=== PATIENT | male | born 1965 | race Hispanic/Latino ===

== ENCOUNTER 2023-12-12 06:47 | Emergency (ER) | payer SELFPAY ==
--- OUTSIDE RECORDS SUMMARY | 2023-12-12 06:49 | XMS REPORT | Continuity of Care Document ---
Author Name Unknown Address [address] [facility] [address] [place] [address] [facility] thconnect Address [address] [facility] 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 Name Role Phone Fredis Hilliard Attending Clinician Unavailable Hernán Attending Clinician Unavail able Fredis Hilliard Admitting Clinician Unavailable Hernán Admitting Clinician Unavail able Payers Payer Name Policy Type Policy Number Effective Date Expirati on Date Source [place] [id number] 2017 00:00:00 Allergies, Adverse Reactions, Alerts Allergy Name Allergy Type Status Severity Reaction(s) Onset Date Inactive Date Treating Clinician Comments Source [place] 2013-06 00:00: 00 [facility] [place]ASH 2013-06 00:00: 00 [facility] Encounters Start Date/Time End Date/Time Encounter Type Admission Type Attending Clinicians Care Facility Care Department Encounter ID Source 2023-04-30 10:00:00 Inpatient Fredis Asencio [facility] RAD [id number] [facility] 2022-07-07 09:32:00 2022-07-07 09:32:00 Outpatient Fredis Asencio [facility] RAD [id number] [facility] 2021-10-29 12:38:00 2021-10-29 12:38:00 Outpatient Lyndsay Jazmin_ AO AO [id number] [facility] Results Test Description Test Time Test Comments Results Resul t Comments Source - US RETROPERITONEAL COMPLETE 2022-07-07 11:20:00 [facility] 1965 Sex: M [place]: [facility] St: REG Name: HI PEREZ [facility] : 1965 Age/S: 56/M [address] [facility] Unit #: [id number] Loc: .[place], [place] [address] Phys: Fredis Hilliard MD Acct: [id number] Dis Date: Status: REG CLI PHONE #: [phone] Exam Date: 07/07/2022 1014 FAX #: [phone] Reason: ESSENTIAL PRIMARY HTN EXAMS: CPT CODE: [id number] US RETROPERITONEAL COMPLETE 59708 Retroperitoneal ultrasound with duplex imaging. Location: H19 History: Essential primary HTN. Comparison: 06/30/2016 Technique and Findings: Grayscale, spectral, color Doppler ultrasound of the kidneys and bladder region were performed. The right kidney measures 9.4 x 5.2 x 4.9 cm. The left kidney measures 9.1 x 5.4 x 4.3 cm. There is no hydronephrosis. Corticomedullary differentiation is normal. There are no focal lesions or calculi seen. Velocities are in cm/sec. Right proximal renal artery: 43.0. Right distal renal artery: Not clearly visualized Right mid renal artery: 148.3 Left proximal renal artery: 63.0 Left distal renal artery: 41.0. Aorta: 114.8 Right renal artery to aorta ratio: 1.3 Left renal artery to aorta ratio: 0.7 The visualized renal veins are patent. The bladder appears smooth-walled. Impression: No sonographic evidence for significant hematoma stenosis of the renal arteries. at 1120 Reported and signed by: CECELIA CHEW MD PAGE 1 Signed Report (CONTINUED) [place]: [facility] St: REG Name: HI PEREZ [facility] : 1965 Age/S: 56/M [address] [facility] Unit #: [id number] Loc: [place], [place] [address] Phys: Fredis Hilliard MD Acct: [id number] Dis Date: Status: REG CLI PHONE #: [phone] Exam Date: 07/07/2022 1014 FAX #: [phone] Reason: ESSENTIAL PRIMARY HTN EXAMS: CPT CODE: [id number] US RETROPERITONEAL COMPLETE 33512 (Continued) Facility ACR Accreditation for Ultrasound - July 2011 CC: Fredis Hilliard MD Technologist: GAGANDEEP PASCUAL, RVS Transcribed Date/Time/By: 07/07/2022 (1120) : By: [email or web address] Orig Print D/T: S: 07/07/2022 (1122) PAGE 2 Signed Report - DUP AO/IVC/IV/BPG LTD 2022-07-07 11:20:00 [facility] : 1965 Sex: M [place]: [facility] St: REG Name: HI PEREZ [facility] : 1965 Age/S: 56/M [address] [facility] Unit #: [id number] Loc: [place], [place] [address] Phys: Fredis Hilliard MD Acct: [id number] Dis Date: Status: REG CLI PHONE #: [phone] Exam Date: 07/07/[address] [facility] FAX #: [phone] Reason: ESSENTIAL PRIMARY HTN EXAMS: CPT CODE: [id number] DUP AO/IVC/IV/BPG LTD 31473 Retroperitoneal ultrasound with duplex imaging. Location: H19 History: Essential primary HTN. Comparison: 06/30/2016 Technique and Findings: Grayscale, spectral, color Doppler ultrasound of the kidneys and bladder region were performed. The right kidney measures 9.4 x 5.2 x 4.9 cm. The left kidney measures 9.1 x 5.4 x 4.3 cm. There is no hydronephrosis. Corticomedullary differentiation is normal. There are no focal lesions or calculi seen. Velocities are in cm/sec. Right proximal renal artery: 43.0. Right distal renal artery: Not clearly visualized Right mid renal artery: 148.3 Left proximal renal artery: 63.0 Left distal renal artery: 41.0. Aorta: 114.8 Right renal artery to aorta ratio: 1.3 Left renal artery to aorta ratio: 0.7 The visualized renal veins are patent. The bladder appears smooth-walled. Impression: No sonographic evidence for significant hematoma stenosis of the renal arteries. at 1120 Reported and signed by: CECELIA CHEW MD PAGE 1 Signed Report (CONTINUED) [place]: [facility] St: REG Name: HI PEREZ [facility] : 1965 Age/S: 56/M [address] [facility] Unit #: [id number] Loc: [place] [address] Phys: Fredis Hilliard MD Acct: [id number] Dis Date: Status: REG CLI PHONE #: [phone] Exam Date: 07/07/2022 1014 FAX #: [phone] Reason: ESSENTIAL PRIMARY HTN EXAMS: CPT CODE: [id number] DUP AO/IVC/IV/BPG LTD 82607 (Continued) Facility ACR Accreditation for Ultrasound - July 2011 CC: Fredis Hilliard MD Technologist: CHARI LEE Transcribed Date/Time/By: 07/07/2022 (1120) : By: [email or web address] Orig Print D/T: S: 07/07/2022 (1126) PAGE 2 Signed Report - VEIN REFLUX STUDY 2019-05-09 11:48:00 [place]: [facility] St: PRE Name: HI PEREZ [facility] : 1965 Age/S: 53/M [address] [facility] Unit #: [id number] Loc: [place], [place] [address] Phys: David James MD Acct: [id number] Dis Date: Status: PRE CLI PHONE #: [phone] Exam Date: 05/04/2019 1110 FAX #: [phone] Reason: VENOUS INSUFFICIENSCY EXAMS: CPT CODE: [id number] VEIN REFLUX STUDY 35693 BILATERAL LOWER EXTREMITIES VENOUS DUPLEX INCLUDING ADDITIONAL EVALUATION FOR VENOUS INSUFFICIENCY INDICATION: Venous insufficiency. COMPARISON: No prior imaging. TECHNIQUE: Real-time grayscale, color and pulsed Doppler evaluation. FINDINGS: The bilateral common femoral, superficial femoral, and popliteal veins demonstrate normal compressibility, normal phasic venous flow, and normal response to augmentation. There is no visible thrombus , nor sign of significant venous insufficiency on the spectral Doppler images. The bilateral saphenous veins are patent without thrombosis. On the RIGHT, in the upright position the greater and lesser saphenous veins were evaluated from the femoral-saphenous junction down to the ankle and the diameter and result of the spectral Doppler evaluation are: Greater saphenous vein - Upper thigh: 4.6 mm, no significant reflux - Mid thigh: 2.6 mm, no significant reflux - Distal thigh: 3.1 mm, no significant reflux - Upper calf: 2.5 mm, no significant reflux - Distal calf: 3.9 mm, no significant reflux Lesser saphenous vein - Upper calf: 2.3 mm, no significant reflux - Mid calf: 2.3 mm, no significant reflux - Distal calf: 2.3 mm, no significant reflux On the LEFT, in the upright position the greater and lesser saphenous veins were evaluated from the femoral-saphenous junction down to the ankle and the diameter and result of the spectral Doppler evaluation are: Greater saphenous vein - Upper thigh: 6.7 mm, no significant reflux - Mid thigh: 3.9 mm, no significant reflux PAGE 1 Signed Report (CONTINUED) [place]: [facility] St: PRE Name: HI PEREZ [facility] : 1965 Age/S: 53/M [address] [facility] [facility] Unit #: [id number] Loc: [place], [place] [address] Phys: David James MD Acct: [id number] Dis Date: Status: PRE CLI PHONE #: [phone] Exam Date: 05/04/2019 1110 FAX #: [phone] Reason: VENOUS INSUFFICIENSCY EXAMS: CPT CODE: [id number] VEIN REFLUX STUDY 49648 (Continued) - Distal thigh: 3.1 mm, no significant reflux - Upper calf: 2.2 mm, no significant reflux - Distal calf: 2.8 mm, no significant reflux Lesser saphenous vein - Upper calf: 5.2 mm, no significant reflux - Mid calf: 2.4 mm, no significant reflux - Distal calf: 2.4 mm, no significant reflux Incidentally noted, behind the left knee there is a popliteal cyst (Staton's cyst) measuring 3.6 cm in length by 1.0 cm in maximal diameter. No surrounding inflammatory changes. This is avascular on the color Doppler images. IMPRESSION: 1. No acute or chronic venous thrombosis involving the femoral, popliteal and saphenous veins. 2. No sign of significant venous insufficiency. 3. Small Staton's / popliteal cyst behind the left knee. at 1148 Reported and signed by: Forrest Godfrey MD Facility ACR Accreditation for Ultrasound - July 2011 CC: Clint Michelle; David James MD Technologist: Susan Damon RT(R)RDMS,RVT; ADALBERTO MURPHY RDMS Transcribed Date/Time/By: 05/09/2019 (1148) : By: [email or web address] Orig Print D/T: S: 05/09/2019 (8397) PAGE 2 Signed Report - MRI L-SPINE W/O CONT 2018-12-28 10:18:00 FAX: Gurjit Quinn [phone] [place]: [facility] St: REG FAX: Jordan Ocampo MD [phone] Name: HI PEREZ [facility] : 1965 Age/S: 53/M [address] [place] [facility] Unit #: [id number] Loc: [place], [place] [address] Phys: Jordan Novoa MD Acct: [id number] Dis Date: Status: REG [facility] PHONE #: [phone] Exam Date: 12/28/2018 0934 FAX #: [phone] Reason: LUMBAR STENOSIS EXAMS: CPT CODE: [id number] MRI L-SPINE W/O CONT 97526 EXAM: MRI LUMBAR SPINE WITHOUT CONTRAST INDICATION: LUMBAR STENOSIS COMPARISON: CT dated June 30, 2016 TECHNIQUE: Multiplanar, multisequence noncontrast MR imaging of the lumbar spine. IV contrast: None. FINDINGS: There are 5 nonrib-bearing lumbar vertebra. There are postsurgical changes of prior laminectomy and posterior fusion of L4-S1 with pedicle screws and rods. There are disc spacers noted in place. There is anterior fusion hardware noted as well. The vertebral bodies are normal in height and signal intensity. There is minimal retrolisthesis of L3 over L4. The facet joints and spinous processes are in normal alignment. There is diffuse facet joint arthropathy. There is loss of the intervertebral disc height throughout the lumbar spine. The conus medullaris terminates at T12-L1 and is normal in signal intensity and caliber. The cauda equina is normal. The posterior paraspinal soft tissues are normal. Imaged portion of the abdomen is unremarkable. INDIVIDUAL LEVELS: L1-L2: No spinal canal or neuroforaminal stenosis. L2-L3: No spinal canal or neuroforaminal stenosis. L3-L4: Minimal retrolisthesis with pseudobulge measuring 6 mm. Mild spinal canal stenosis. Facet joint hypertrophy with moderate right and mild left neuroforaminal stenosis. L4-L5: Postsurgical changes. No spinal canal or neuroforaminal stenosis. L5-S1: Postsurgical changes. No spinal canal or neuroforaminal stenosis. IMPRESSION: PAGE 1 Signed Report (CONTINUED) FAX: Gurjit Quinn [phone] [place]: [facility] St: REG FAX: Jordan Ocampo MD [phone] Name: HI PEREZ [facility] : 1965 Age/S: 53/M [address] [facility] [facility] Unit #: [id number] Loc: [place], [place] [address] Phys: Jordan Novoa MD Acct: [id number] Dis Date: Status: REG [facility] PHONE #: [phone] Exam Date: 12/28/2018 0934 FAX #: [phone] Reason: LUMBAR STENOSIS EXAMS: CPT CODE: [id number] MRI L-SPINE W/O CONT 44063 (Continued) Discogenic disease and facet joint arthropathy throughout the lumbar spine. Minimal retrolisthesis of L3 over L4 with mild spinal canal stenosis. Moderate right neuroforaminal stenosis at L3-L4. Postsurgical changes at L4-S1. LOCATION: A 1 at 1018 Reported and signed by: SHEREE HALE M.D. CC: Gurjit Cline MD; Jordan Novoa MD Technologist: Fredis Talley RT(R)(CT)(MRI)ARRT Transcribed Date/Time/By: 12/28/2018 (1018) :[email or web address] Orig Print D/T: S: 12/28/2018 (0067) PAGE 2 Signed Report CBC W/O [id number] 10:50:00* Test Item Value Reference Range Interpretation Comme nts WHITE BLOOD CELL (test code = WBC) 7.3 K/mm3 4.8-10.8 N RED BLOOD CELL (test code = RBC) 4.46 M/mm3 4.2-5.4 N HEMOGLOBIN (test code = HGB) 14.0 gm/DL 13.5-17.5 N HEMATOCRIT (test code = HCT) 41.0 % 37.1-51.5 N MEAN CELL VOLUME (test code = MCV) 91.9 fL 81-99 N MEAN CELL HGB (test code = MCH) 31.4 pg 27-31 H MEAN CELL HGB CONCETRATION ( test code = MCHC) 34.1 gm/dL 33-37 N RED CELL DISTRIBUTION WIDTH (test code = RDW) 12.7 % 11.5-14.5 N PLATELET COUNT (test code = PLT) 234 X10(3) 130-400 N MEAN PLATELET VOLUME (test c ode = MPV) 9.6 fL 9.4-12.4 N
[2023-12-12] MEDS ORDERED: dexAMETHasone 10 MG/ML VIAL ONE (07:16)
[2023-12-12] MEDS ORDERED: ONDANSETRON 4 MG/2 ML VIAL ONE (07:16)
[2023-12-12] MEDS ORDERED: KETOROLAC 30 MG/ML INJ ONE (07:16)
[2023-12-12] MEDS ORDERED: MORPHINE 4 MG/ML SYR ONE (07:17)
--- NOTE | 2023-12-12 08:29 | RAD REPORT ---
EXAM DESCRIPTION: CT - Spine Lumbar Wo Con - 12/12/2023 7:53 am CLINICAL HISTORY: worsening pain COMPARISON: Spine Lumbar Wo Con dated 11/25/2023 TECHNIQUE: Axial noncontrast CT imaging of the lumbar spine was performed with coronal and sagittal re-formatted images. All CT scans are performed using dose optimization technique as appropriate and may include automated exposure control or mA/KV adjustment according to patient size. FINDINGS: Sequelae of bilateral laminectomies opposite L5 transpedicular fusion screws at L4-S1 with a single left-sided screw at L5, and interbody spacers. No evidence of hardware complications. No acute lumbar spine fracture seen. No aggressive marrow pattern or malalignment apart from mild ret rolisthesis of L3 over L4 measuring 3 mm. Paraspinal tissues are normal in thickness. No paraspinal abscess or hematoma seen. Intervertebral disc disease assessment is inherently limited by CT. Additionally, metallic streak art ifact related to the fusion hardware also limits evaluation. Within these limitations, no high-grade canal stenosis suspected. Broad-based posterior disc bulge is noted at L3-4 mild effacement of the thecal sac. Moderate bilater al neural foraminal narrowing noted at that level, more pronounced on the right. Broad-based posterior central disc bulge with disc vacuum phenomenon at L2-3. Mild bilateral neural f oraminal narrowing at that level. IMPRESSION: No acute fracture or subluxation. Sequelae of prior decompression and L4-S1 posterior approach fusion. Up to moderate degenerative laboy ges most notably at L3-4 and to lesser extent at L2-3. Please Consider MRI follow-up for assessment o f disc disease if clinically desired.
--- NOTE | 2023-12-12 09:44 | EDPHYS ---
Physician Documentation [facility] Name: Jim Maldonado Jr Age: 57 yrs Sex: Male : 1965 Arrival Date: 12/12/2023 Time: 06:47 Bed 18 Private MD: ED Physician Aram Zhao HPI: 12/11 07:20 This 57 yrs old Male presents to ER via Wheelchair with complaints of Back rt Pain, Leg Pain. 07:20 Patient with previous back surgery presents to the ED with a low back pain. Patient was rt seen in the ED for the same, had no significant changes on CT scan, x-ray of the leg, labs. Patient ran out of his oxycodone few days ago, tried to get in with his doctor to get refills on his prescriptions. Did take diclofenac, cyclobenzaprine today, to no relief. Patient states that the pain has worsened, states that he is not able to walk due to the pain. Denies any loss of strength. Denies other acute complaints at this time, symptoms are moderate in severity, no other aggravating elevating factors.. Historical: - Allergies: 07:12 PENICILLINS; kc6 - PMHx: 07:12 Hypertensive disorder; Rashi Willebrand Disease; Gastritis; kc6 - PSHx: 07:12 laminectomy; spinal fusion; kc6 - Immunization history:: Adult Immunizations up to date. - Infectious Disease History:: Denies. - Social history:: Smoking status: Patient denies any tobacco usage or history of. - Family history:: not pertinent. ROS: 07:20 Constitutional: Negative for fever, chills, and weight loss, Cardiovascular: Negative rt for chest pain, palpitations, and edema, Respiratory: Negative for shortness of breath, cough, wheezing, and pleuritic chest pain, Abdomen/GI: Negative for abdominal pain, nausea, vomiting, diarrhea, and constipation, Skin: Negative for injury, rash, and discoloration, Neuro: Negative for headache, weakness, numbness, tingling, and seizure, 07:20 Back: Positive for pain at rest, pain with movement, Exam: 07:20 Constitutional: This is a well developed, well nourished patient who is awake, alert, rt and in no acute distress. Head/Face: Normocephalic, atraumatic. Chest/axilla: Normal chest wall appearance and motion. Nontender with no deformity. No lesions are appreciated. Cardiovascular: Regular rate and rhythm with a normal S1 and S2. No gallops, murmurs, or rubs. Normal PMI, no JVD. No pulse deficits. Respiratory: Lungs have equal breath sounds bilaterally, clear to auscultation and percussion. No rales, rhonchi or wheezes noted. No increased work of breathing, no retractions or nasal flaring. Abdomen/GI: Soft, non-tender, with normal bowel sounds. No distension or tympany. No guarding or rebound. No evidence of tenderness throughout. 07:20 Back: Tenderness to midline lumbar region, no step-offs, 07:20 Neuro: Mildly decreased sensation at the distal left medial calf, strength is intact, Vital Signs: 07:04 BP 164 / 88; Pulse 92; Resp 18; Temp 98(O); Pulse Ox 100% on R/A; Weight 81.65 kg; oe Height 5 ft. 7 in. ; Pain 10/10; 08:23 BP 145 / 77; Pulse 72; Resp 16 S; Pulse Ox 97% on R/A; kc6 09:25 Pulse 70; Resp 15 S; Pulse Ox 97% on R/A; kc6 07:04 Body Mass Index 28.19 (81.65 kg, 170.18 cm) oe 07:04 Pain Scale: Adult oe MDM: 07:03 Patient medically screened. rt 11:41 Differential diagnosis: Chronic pain, disc disease, fracture. Data reviewed: vital rt signs, nurses notes, radiologic studies. I considered the following discharge prescriptions or medication management in the emergency department Medications were administered in the Emergency Department. See MAR. Independent interpretation of the following test(s) in the Emergency Department CT Scan: My interpretation is No fracture seen on interpretation of CT scan images. Test considered but Not performed: MRI: No symptoms to suggest cord compression, cauda equina syndrome, spinal epidural abscess, MRI is not emergently indicated. Care significantly affected by the following chronic conditions: Hypertension. Counseling: I had a detailed discussion with the patient and/or guardian regarding the historical points, exam findings, and any diagnostic results supporting the discharge/admit diagnosis, radiology results, the need for outpatient follow up, to return to the emergency department if symptoms worsen or persist or if there are any questions or concerns that arise at home. Response to treatment: the patient's symptoms have markedly improved after treatment. 12/11 07:11 Order name: CT Lumbar Spine Wo Con; Complete Time: 08:50 rt Administered Medications: 07:30 Drug: morphine IVP or IV 4 mg IVP once over 4 mins Route: IVP; Infused Over: 4 mins; kc6 Site: right forearm; 08:24 Follow up: Response: No adverse reaction; RASS: Alert and Calm (0) kc6 07:30 Drug: Ondansetron IVP 4 mg IVP once; over 2 minutes Route: IVP; Site: right forearm; kc6 08:24 Follow up: Response: No adverse reaction kc6 07:30 Drug: Decadron - Dexamethasone IVP 10 mg IVP once Route: IVP; Site: right forearm; kc6 08:24 Follow up: Response: No adverse reaction kc6 07:30 Drug: Ketorolac IVP 15 mg IVP once Route: IVP; Site: right forearm; kc6 08:24 Follow up: Response: No adverse reaction kc6 Disposition Summary: 12/12/23 09:44 Discharge Ordered Notes: Location: Home rt Problem: an ongoing problem rt Symptoms: have improved rt Condition: Stable rt Diagnosis - Low back pain rt Followup: rt - With: Private Physician - When: 2 - 3 days - Reason: Discharge Instructions: - Discharge Summary Sheet rt - Chronic Back Pain rt Forms: - Medication Reconciliation Form rt - Antibiotic Education rt - Prescription Opioid Use rt - Patient Portal Instructions rt - Leadership Thank You Letter rt Prescriptions: - acetaminophen-codeine 300-30 mg Oral tablet - take 1 tablet ORAL route every 6 hours as needed for pain; 18 tablet; Refills: rt 0, Product Selection Permitted Signatures: Dispatcher [employer] Chetna Morrissey RN RN kc6 Aram Zhao MD MD rt Corrections: (The following items were deleted from the chart) 07:11 07:11 Spine Lumbar Wo Con+CT.RAD.BRZ ordered. EDMS EDMS
--- NOTE | 2023-12-12 09:44 | ER ---
Nurse's Notes [facility] Name: Jim Maldonado Jr Age: 57 yrs Sex: Male : 1965 Arrival Date: 12/12/2023 Time: 06:47 Bed 18 Private MD: Diagnosis: Low back pain Presentation: 12/11 07:11 Chief complaint: Patient states: hx of laminectomy and spinal fusion many years ago. pt kc6 reports increased left lower back and leg pain since thursday. Coronavirus screen: At this time, the client does not indicate any symptoms associated with coronavirus-19. Ebola Screen: No symptoms or risks identified at this time. Initial Sepsis Screen: Does the patient meet any 2 criteria? No. Patient's initial sepsis screen is negative. Does the patient have a suspected source of infection? No. Patient's initial sepsis screen is negative. Risk Assessment: Do you want to hurt yourself or someone else? Patient reports no desire to harm self or others. Onset of symptoms was December 12, 2023. 07:11 Method Of Arrival: Wheelchair kc 07:11 Acuity: MARCEL 3 kc6 Triage Assessment: 07:12 General: Appears in no apparent distress. uncomfortable, well groomed, well developed, kc6 Behavior is calm, cooperative, appropriate for age. Pain: Complains of pain in left low back and left leg. EENT: No signs and/or symptoms were reported regarding the EENT system. Neuro: Level of Consciousness is awake, alert, obeys commands, Oriented to person, place, time, situation, Appropriate for age. Cardiovascular: Capillary refill < 3 seconds. Respiratory: Airway is patent Trachea midline Respiratory effort is even, unlabored, Respiratory pattern is regular, symmetrical. GI: No signs and/or symptoms were reported involving the gastrointestinal system. : No signs and/or symptoms were reported regarding the genitourinary system. Derm: No signs and/or symptoms reported regarding the dermatologic system. Skin is intact, is healthy with good turgor, Skin is pink, warm \T\ dry. Musculoskeletal: Circulation, motion, and sensation intact. Capillary refill < 3 seconds, Range of motion: intact in all extremities. Historical: - Allergies: 07:12 PENICILLINS; kc6 - PMHx: 07:12 Hypertensive disorder; Rashi Willebrand Disease; Gastritis; kc6 - PSHx: 07:12 laminectomy; spinal fusion; kc6 - Immunization history:: Adult Immunizations up to date. - Infectious Disease History:: Denies. - Social history:: Smoking status: Patient denies any tobacco usage or history of. - Family history:: not pertinent. Screenin:14 [facility] ED Fall Risk Assessment (Adult) History of falling in the last 3 months, kc6 including since admission No falls in past 3 months (0 pts) Confusion or Disorientation No (0 pts) Intoxicated or Sedated No (0 pts) Impaired Gait Yes (1 pt) Mobility Assist Device Used Yes (1 pt) Altered Elimination No (0 pt) Score/Fall Risk Level 0 - 2 = Low Risk. Abuse screen: Denies threats or abuse. Denies injuries from another. Nutritional screening: No deficits noted. Tuberculosis screening: No symptoms or risk factors identified. Assessment: 07:14 Reassessment: please see triage. kc6 08:15 Reassessment: Patient appears in no apparent distress at this time. No changes from 6 previously documented assessment. Patient and/or family updated on plan of care and expected duration. Pain level reassessed. Patient is alert, oriented x 3, equal unlabored respirations, skin warm/dry/pink. 09:25 Reassessment: Patient appears in no apparent distress at this time. No changes from kc6 previously documented assessment. Patient and/or family updated on plan of care and expected duration. Pain level reassessed. Patient is alert, oriented x 3, equal unlabored respirations, skin warm/dry/pink. Vital Signs: 07:04 BP 164 / 88; Pulse 92; Resp 18; Temp 98(O); Pulse Ox 100% on R/A; Weight 81.65 kg; oe Height 5 ft. 7 in. ; Pain 10/10; 08:23 BP 145 / 77; Pulse 72; Resp 16 S; Pulse Ox 97% on R/A; kc6 09:25 Pulse 70; Resp 15 S; Pulse Ox 97% on R/A; kc6 07:04 Body Mass Index 28.19 (81.65 kg, 170.18 cm) oe 07:04 Pain Scale: Adult oe ED Course: 06:50 Patient arrived in ED. gm2 06:59 Aram Zhao MD is Attending Physician. rt 07:11 Almodovar, Chetna, RN is Primary Nurse. kc6 07:12 Triage completed. kc6 07:12 Arm band placed on. kc6 07:15 Patient has correct armband on for positive identification. Bed in low position. Call kc6 light in reach. Side rails up X2. Pulse ox on. NIBP on. Pillow given. 07:30 Inserted saline lock: 20 gauge in right forearm, using aseptic technique. kc6 07:54 CT Lumbar Spine Wo Con In Process Unspecified. EDMS 10:02 No provider procedures requiring assistance completed. IV discontinued, intact, kc6 bleeding controlled, No redness/swelling at site. Pressure dressing applied. Administered Medications: 07:30 Drug: morphine IVP or IV 4 mg IVP once over 4 mins Route: IVP; Infused Over: 4 mins; kc6 Site: right forearm; 08:24 Follow up: Response: No adverse reaction; RASS: Alert and Calm (0) kc6 07:30 Drug: Ondansetron IVP 4 mg IVP once; over 2 minutes Route: IVP; Site: right forearm; kc6 08:24 Follow up: Response: No adverse reaction kc6 07:30 Drug: Decadron - Dexamethasone IVP 10 mg IVP once Route: IVP; Site: right forearm; kc6 08:24 Follow up: Response: No adverse reaction kc6 07:30 Drug: Ketorolac IVP 15 mg IVP once Route: IVP; Site: right forearm; kc6 08:24 Follow up: Response: No adverse reaction kc6 Medication: 10:02 VIS not applicable for this client. kc6 Outcome: 09:44 Discharge ordered by . rt 10:02 Discharged to home via wheelchair, with family, kc6 10:02 Condition: improved 10:02 Discharge instructions given to patient, Instructed on discharge instructions, follow up and referral plans. medication usage, Demonstrated understanding of instructions, follow-up care, medications, Prescriptions given X 1, 10:02 Patient left the ED. kc6 Signatures: Dispatcher [employer] EDMS Abilio Martin Kaitlyn, RN RN kc6 Aram Zhao MD MD rt Ashley Starr gm2
[2023-12-12 10:38] VITALS: BP 145/77; TEMP 98; O2SAT 97
== END 2023-12-12 10:02 | disposition home or self-care (01) ==
LOC: ER 06:47
DX: M54.50 Low back pain, unspecified (principal); I10 Essential (primary) hypertension; Z88.0 Allergy status to penicillin
CPT/HCPCS: 72131; 96374; 96375; 99284; J1100; J2405

== ENCOUNTER 2024-10-13 08:07 | Emergency (ER) | payer OTHER ==
--- OUTSIDE RECORDS SUMMARY | 2024-10-13 08:12 | XMS REPORT | Continuity of Care Document ---
Author Name Unknown Address [address] [facility] [place] [address] Organization [facility] [place] Address [address] [facility] [place] [address] Care Team Providers Care Hand Candy Dipper Name Role Phone Pcp, Patient Does Not Have A Primary Care Physic venus Fredis Hilliard Attending Clinician Unavailable [place] MD Attending Clinician [phone] EDWIN HOLLIDAY Attending Clinician Unavailable EDWIN HOLLIDAY Attending Clinician Unavailable Edwin Holliday MD Attending Clinician [phone] Hernán Attending Clinician Unavail able Fredis Hilliard Admitting Clinician Unavailable Hernán Admitting Clinician Unavail able Payers Payer Name Policy Type Policy Number Effective Date Expirati on Date Source [place] [id number] 2017 00:00:00 Allergies, Adverse Reactions, Alerts Allergy Name Allergy Type Status Severity Reaction(s) Onset Date Inactive Date Treating Clinician Comments Source Penicill in Propensi ty to adverse reaction s Active Rash 03-18 00:00: 00 [facility] PENICILL IN DRUG INGREDI Active Rash 03-18 00:00: 00 [facility] Penicill ins DA Active [place] 2013-06 00:00: 00 [facility] Penicill ins DA Active [place] RASH 2013-06 00:00: 00 [facility] Social History Social Habit Start Date Stop Date Quantity Comments Source Sexual orientation U [facility] Sex assigned at 1965 00:00:00 1965 00:00:00 [facility] Smoking Status Start Date Stop Date Source Tobacco smoking consumption unknown [facility] Medications Ordered Medication Name Filled Medication Name Start Date Stop Date Current Medication? Ordering Clinician Indication Dosage Frequency Signature (SIG) Comments Components Source HYDROcodone -acetaminop hen (NORCO) 10-325 mg tablet 1 tablet 2023-06 14:00: 00 06-13 13:23 :00 No 1{tbl} 1 tablet, Oral, ONCE, 1 dose, On Thu06/13/24 at 0800, AURELIANO [facility] HYDROcodone -acetaminop hen 5-325 mg tablet 2023-06 00:00: 00 06-13 00:00 :00 No 4647 1{tbl} Take 1-2 tablets by mouth every 6 (six) hours as needed for Pain (scale 4-6). Indication s: acute pain [facility] oxyCODONE immediate release tablet 10 mg 03-18 10:45: 00 03-18 10:07 :00 No 10mg 10 mg, Oral, ONCE, 1 dose, On Thu03/18/24 at 0545, AURELIANO, membership sales manager approving Restricted medication : EDWIN HOLLIDAY [facility] Vital Signs Vital Name Observation Time Observation Value Comments S irwin Systolic blood pressure 2024-06-13 12:11:00 180 mm[Hg] [facility] Diastolic blood pressure 2024-06-13 12:11:00 106 mm[Hg] [facility] Heart rate 2024-06-13 12:11:00 77 /min [facility] Body temperature 2024-06-13 12:11:00 36.39 Magi [facility] Respiratory rate 2024-06-13 12:11:00 24 /min [facility] Body height 2024-06-13 12:11:00 170.2 cm [facility] Body weight 2024-06-13 12:11:00 84.913 kg [facility] BMI 2024-06-13 12:11:00 29.32 kg/m2 [facility] Oxygen saturation in Arterial blood by Pulse oximetry 2024-06-13 12:11:00 99 /min [facility] Systolic blood pressure 2024-03-18 09:37:00 147 mm[Hg] [facility] Diastolic blood pressure 2024-03-18 09:37:00 100 mm[Hg] [facility] Heart rate 2024-03-18 09:37:00 76 /min [facility] Body temperature 2024-03-18 09:37:00 36.78 [facility] Respiratory rate 2024-03-18 09:37:00 16 /min [facility] Body height 2024-03-18 09:37:00 170.2 cm [facility] Body weight 2024-03-18 09:37:00 88.451 kg [facility] BMI 2024-03-18 09:37:00 30.54 kg/m2 [facility] Oxygen saturation in Arterial blood by Pulse oximetry 2024-03-18 09:37:00 99 /min [facility] Encounters Start Date/Time End Date/Time Encounter Type Admission Type Attending [facility] Care Facility Care Department Encounter ID Source 2023-04-30 10:00:00 Inpatient Fredis AsencioVA RAD [id number] [facility] 2024-06-13 06:16:00 2024-06-13 07:28:00 Emergency North Wei [facility] [id number] [facility] 2024-03-18 04:48:00 2024-03-18 05:29:00 Emergency X EDWIN HOLLIDAY WAKILI [facility] ERT [id number] [facility] 2024-03-18 04:48:00 2024-03-18 05:29:00 Emergency Edwin Holliday [facility] [id number] [facility] 2022-07-07 09:32:00 2022-07-07 09:32:00 Outpatient Fredis Asencio RAD [id number] [facility] 2021-10-29 12:38:00 2021-10-29 12:38:00 Outpatient Lyndsay Wu_ AOSM AOSM [id number] [facility] Results Test Description Test Time Test Comments Results Resul t Comments Source - US RETROPERITONEAL COMPLETE 2022-07-07 11:20:00 [facility] 1965 Sex: M [place]: [address]: REG Name: HI PEREZ [facility] : 1965 Age/S: 56/M [address] Unit #: [id number] Loc: [place], [place] [address] Phys: Fredis Hilliard MD Acct: [id number] Dis Date: Status: REG CLAnay PHONE #: [phone] Exam Date: 07/07/2022 1014 FAX #: [phone] Reason: ESSENTIAL PRIMARY HTN EXAMS: CPT CODE: [id number] US RETROPERITONEAL COMPLETE 24032 Retroperitoneal ultrasound with duplex imaging. Location: H19 [...] CHEW MD PAGE 1 Signed Report (CONTINUED) [place]: [facility] St: REG Name: HI PEREZ [facility] : 1965 Age/S: 56/M [address] Unit #: [id number] Loc: .[place], [place] [address] Phys: Fredis Hilliard MD Acct: [id number] Dis Date: Status: REG CLI PHONE #: [phone] Exam Date: 07/07/2022 1018 FAX #: [phone] Reason: ESSENTIAL PRIMARY HTN EXAMS: CPT CODE: [id number] US RETROPERITONEAL COMPLETE 75692 (Continued) Facility ACR Accreditation for Ultrasound - July 2011 CC: Fredis Hilliard MD Technologist: GAGANDEEP PASCUAL RVS Transcribed Date/Time/By: 07/07/2022 (1120) : By: [email or web address] Orig Print D/T: S: 07/07/2022 (1123) PAGE 2 Signed Report - DUP AO/IVC/IV/BPG LTD 2022-07-07 11:20:00 [facility] Chavez : 1965 Sex: M [place]: [facility] St: REG Name: HI PEREZ [facility] : 1965 Age/S: 56/M [address] Unit #: [id number] Loc: [place], [place] [address] Phys: Fredis Hilliard MD Acct: [id number] Dis Date: Status: REG CLI PHONE #: [phone] Exam Date: 07/07/20224 FAX #: [phone] Reason: ESSENTIAL PRIMARY HTN EXAMS: CPT CODE: [id number] DUP AO/IVC/IV/BPG LTD 99456 Retroperitoneal ultrasound with duplex imaging. Location: H19 [...] CHEW MD PAGE 1 Signed Report (CONTINUED) [place]: [facility] St: REG Name: HI PEREZ [facility] : 1965 Age/S: 56/M [address] [facility] Unit #: [id number] Loc: [place], [place] [address] Phys: Fredis Hilliard MD Acct: [id number] Dis Date: Status: REG CLI PHONE #: [phone] Exam Date: 07/07/20224 FAX #: [phone] Reason: ESSENTIAL PRIMARY HTN EXAMS: CPT CODE: [id number] DUP AO/IVC/IV/BPG LTD 23283 (Continued) Facility ACR Accreditation for Ultrasound - July 2011 CC: Fredis Hilliard MD Technologist: CHARI LEE Transcribed Date/Time/By: 07/07/2022 (1120) : By: [email or web address] Orig Print D/T: S: 07/07/2022 (1127) PAGE 2 Signed Report - VEIN REFLUX STUDY 2019-05-09 11:48:00 [place]: [facility] St: PRE Name: HI PEREZ [facility] : 1965 Age/S: 53/M [address] [facility] Unit #: [id number] Loc: [place], [place] [address] Phys: David James MD Acct: [id number] Dis Date: Status: PRE CLI PHONE #: [phone] Exam Date: 05/04/2019 1110 FAX #: [phone] Reason: VENOUS INSUFFICIENSCY EXAMS: CPT CODE: [id number] VEIN REFLUX STUDY 89680 BILATERAL LOWER EXTREMITIES VENOUS DUPLEX INCLUDING ADDITIONAL [...] significant reflux PAGE 1 Signed Report (CONTINUED) [place]: [facility] St: PRE Name: HI PEREZ [facility] : 1965 Age/S: 53/M [address] [facility] Unit #: [id number] Loc: [place], [place] [address] Phys: David James MD Acct: [id number] Dis Date: Status: PRE CLI PHONE #: [phone] Exam Date: 05/04/2019 1110 FAX #: [phone] Reason: VENOUS INSUFFICIENSCY EXAMS: CPT CODE: [id number] VEIN REFLUX STUDY 34497 (Continued) - Distal thigh: 3.1 mm, no [...] By: [email or web address] Orig Print D/T: S: 05/09/2019 (8813) PAGE 2 Signed Report - MRI L-SPINE W/O CONT 2018-12-28 10:18:00 FAX: Gurjit Quinn [phone] [place]: [address] St: REG FAX: Jordan Ocampo MD [phone] Name: HI PEREZ [facility] : 1965 Age/S: 53/M [address] [facility] Unit #: [id number] Loc: [place], [place] [address] Phys: Jordan Novoa MD Acct: [id number] Dis Date: Status: REG [facility] PHONE #: [phone] Exam Date: 12/28/2018 0934 FAX #: [phone] Reason: LUMBAR STENOSIS EXAMS: CPT CODE: [id number] MRI L-SPINE W/O CONT 61132 EXAM: MRI LUMBAR SPINE WITHOUT CONTRAST INDICATION: [...] 1 Signed Report (CONTINUED) FAX: Gurjit Quinn [phone] [place]: [address] St: REG FAX: Jordan Ocampo MD [phone] Name: HI PEREZ [facility] : 1965 Age/S: 53/M [address] [facility] Unit #: [id number] Loc: [place], [place] [address] Phys: Jordan Novoa MD Acct: [id number] Dis Date: Status: REG [facility] PHONE #: [phone] Exam Date: 12/28/2018 0934 FAX #: [phone] Reason: LUMBAR STENOSIS EXAMS: CPT CODE: [id number] MRI L-SPINE W/O CONT 50107 (Continued) Discogenic disease and facet joint arthropathy [...] (1018) :[email or web address] Orig Print D/T: S: 12/28/2018 (1909) PAGE 2 Signed Report CBC W/O [id number] 10:50:00* Test Item Value Reference Range Interpretation [...] ode = MPV) 9.6 fL 9.4-12.4 N Notes Date/Time Note Provider Source 2024-06-13 07:27:57 PT D/C home. GCS15, VS stable, no ataxia noted. Given one prescription (changed to [facility] per pt request) and D/C paperwork. Pt ambulatroy at time of discharge. Pt educated on diagnosis, med usage, follow up care, s/s worsening condition. Pt verbalized understanding. ATION SYSTEMS OUTREACH SPECIALIST Edda Mcgee RN [facility] 2024-06-13 06:06:23 Pt ambulatory to triage for CC of L leg pain. Pt reports he has chronic leg pain in L leg and takes percocet for pain daily but ran out of his medication. Pt states he is a few days out from his refill. Pt was prescribed Flexeril and diclofenac but it is not working. Pt A&Ox4. Pt states he has hx of lumbar fusion and laminectomy and arthritis ATION SYSTEMS OUTREACH SPECIALIST Calderon Kennedy RN [facility] 2024-03-18 05:13:37 Awake, alert oriented X4, respiratory even and unlabored,skin w/d color appropriate for race, moves all ext well, pt encouraged to follow up with pcp and or return as needed Pt given printed and verbal discharge instructions regarding chronic low back pain without sciatica , patient verbralized understanding and signature obtained, patient Advised to seek medical attention for new/prolonged/worsening of symptoms, No adverse reaction to meds given in ER noted upon discharge Pt ambulated to the [facility] with steady gait Leslie Hoover RN [facility] 2024-03-18 04:38:22 CC: Pt was prescribed oxycodone for lumbar fusion pain by . Pt states the PCP refilled his prescription, and he went to [facility] but pharmacist refused refill. [facility] pharmacist refused to refill medication because "my doctor is not from here." Pt states "so they didn't refill it and now I'm going crazy." Pt states "I've went through withdrawal before, and do not want to go through it again. Last oxy: 3 days ago PMH: Von Willebrand disorder Pharmacy - Awake, alert, oriented, resp reg unlabored, skin intact, color appropriate for race, moves all ext without difficulty, amb without assistance [facility]
[2024-10-13] MEDS ORDERED: HYDROCODONE/APAP 10/325 TAB ONE (08:55)
--- NOTE | 2024-10-13 09:01 | ER ---
Nurse's Notes [facility] Name: Jim Maldonado Jr Age: 58 yrs Sex: Male : 1965 Arrival Date: 10/13/2024 Time: 08:07 Bed 11 Private MD: Diagnosis: Other chronic pain-medication refill Presentation: 10/13 08:16 Chief complaint: Patient states: Pt reports hx of chronic back pain and ran out of his ss pain medication, Oxycodone, yesterday afternoon and does not get his refill until tomorrow and believes he may already be withdrawing. Coronavirus screen: Client denies travel out of the [place] in the last 14 days. Ebola Screen: Patient denies exposure to infectious person. Patient denies travel to an Ebola-affected area in the 21 days before illness onset. Initial Sepsis Screen: Does the patient meet any 2 criteria? No. Patient's initial sepsis screen is negative. Does the patient have a suspected source of infection? No. Patient's initial sepsis screen is negative. Risk Assessment: Do you want to hurt yourself or someone else? Patient reports no desire to harm self or others. Onset of symptoms was October 12, 2024. 08:16 Method Of Arrival: Ambulatory ss 08:16 Acuity: MARCEL 3 ss 08:19 Note Pt also reports he has a colonoscopy scheduled this afternoon. Triage Assessment: 08:18 General: Appears in no apparent distress. comfortable, Behavior is calm, cooperative. ss Neuro: Level of Consciousness is awake, alert, obeys commands, Oriented to person, place, time, situation. Respiratory: Respiratory effort is even, unlabored. Derm: Skin is intact, is healthy with good turgor, Skin is pink, warm \\T\\ dry. normal. Musculoskeletal: Swelling absent. Historical: - Allergies: 08:18 PENICILLINS; ss - PMHx: 08:18 gastritis; Hypertensive disorder; Rashi Willebrand Disease; Chronic back pain; ss - PSHx: 08:18 laminectomy; Spinal Fusion; ss - Infectious Disease History:: Denies. - Social history:: Smoking status: Patient denies any tobacco usage or history of. - Family history:: not pertinent. Screenin:21 Abuse screen: Denies threats or abuse. Denies injuries from another. ss Assessment: 08:21 Reassessment: PT states, "I ran out too soon because I took extras when the weather ss changed. I couldn't stand it.". 09:10 Reassessment: Patient appears in no apparent distress at this time. Patient and/or ss family updated on plan of care and expected duration. Pain level reassessed. Patient is alert, oriented x 3, equal unlabored respirations, skin warm/dry/pink. Vital Signs: 08:19 Pulse 67; Resp 16; Temp 97.9(O); Pulse Ox 100% on R/A; Weight 81.65 kg; Height 5 ft. 7 ss in. ; Pain 10/10; 08:23 BP 166 / 93; ss 08:19 Body Mass Index 28.19 (81.65 kg, 170.18 cm) 08:19 Pain Scale: Adult ss ED Course: 08:11 Patient arrived in ED. im 08:12 Zachariah French MD is Attending Physician. [facility] 08:18 Triage completed. 08:18 Arm band placed on right wrist. 09:00 Mickie Bowles, RN is Primary Nurse. 09:09 No provider procedures requiring assistance completed. Patient did not have IV access ss during this emergency room visit. Administered Medications: 09:02 Drug: Sunol PO 10 mg-325 mg 1 tabs PO once Route: PO; 09:09 Follow up: Response: Medication Administered at Departure Medication: 08:21 VIS not applicable for this client. Outcome: 09:[address] . [facility] 09:09 Discharged to home ambulatory, 09:09 Condition: good 09:09 Discharge instructions given to patient, Instructed on discharge instructions, follow up and referral plans. medication usage, Demonstrated understanding of instructions, follow-up care, medications, Prescriptions given X 1, 09:10 Patient left the ED. Signatures: Zachariah French MD MD cha Blanchard, Shelby, RN RN Dianna Moreau Corrections: (The following items were deleted from the chart) 08:43 08:16 Acuity: MARCEL 4 [facility]
--- NOTE | 2024-10-13 09:01 | EDPHYS ---
Physician Documentation [facility] Name: Jim Maldonado Jr Age: 58 yrs Sex: Male : 1965 Arrival Date: 10/13/2024 Time: 08:07 Bed 11 Private MD: ED Physician Zachariah French HPI: 10/13 08:48 This 58 yrs old Male presents to ER via Ambulatory with complaints of Low Back golden Pain, Knee Pain - both. 08:48 The patient presents with pain that is chronic. The symptoms are located in the low golden back. The pain does not radiate. The problem was sustained from unknown cause. Modifying factors: The patient symptoms are alleviated by remaining still, the patient symptoms are aggravated by any movement. Severity of symptoms: At their worst the symptoms were mild, moderate, in the emergency department the symptoms are unchanged. The patient has experienced similar episodes in the past. Historical: - Allergies: 08:18 PENICILLINS; ss - PMHx: 08:18 gastritis; Hypertensive disorder; Rashi Willebrand Disease; Chronic back pain; ss - PSHx: 08:18 laminectomy; Spinal Fusion; ss - Infectious Disease History:: Denies. - Social history:: Smoking status: Patient denies any tobacco usage or history of. - Family history:: not pertinent. ROS: 08:48 Constitutional: Negative for fever, chills, and weight loss, Eyes: Negative for injury, golden pain, redness, and discharge, ENT: Negative for injury, pain, and discharge, Neck: Negative for injury, pain, and swelling, Cardiovascular: Negative for chest pain, palpitations, and edema, Respiratory: Negative for shortness of breath, cough, wheezing, and pleuritic chest pain, Abdomen/GI: Negative for abdominal pain, nausea, vomiting, diarrhea, and constipation, : Negative for injury, bleeding, discharge, and swelling, MS/Extremity: Negative for injury and deformity, Skin: Negative for injury, rash, and discoloration, Neuro: Negative for headache, weakness, numbness, tingling, and seizure, Psych: Negative for depression, anxiety, suicide ideation, homicidal ideation, and hallucinations, Allergy/Immunology: Negative for hives, rash, and allergies, Endocrine: Negative for neck swelling, polydipsia, polyuria, polyphagia, and marked weight changes, Hematologic/Lymphatic: Negative for swollen nodes, abnormal bleeding, and unusual bruising, 08:48 Back: Positive for decreased range of motion, pain at rest, pain with movement, Exam: 08:48 Constitutional: This is a well developed, well nourished patient who is awake, alert, golden and in no acute distress. Head/Face: Normocephalic, atraumatic. Eyes: Pupils equal round and reactive to light, extra-ocular motions intact. Lids and lashes normal. Conjunctiva and sclera are non-icteric and not injected. Cornea within normal limits. Periorbital areas with no swelling, redness, or edema. ENT: Nares patent. No nasal discharge, no septal abnormalities noted. Tympanic membranes are normal and external auditory canals are clear. Oropharynx with no redness, swelling, or masses, exudates, or evidence of obstruction, uvula midline. Mucous membranes moist. Neck: Trachea midline, no thyromegaly or masses palpated, and no cervical lymphadenopathy. Supple, full range of motion without nuchal rigidity, or vertebral point tenderness. No Meningismus. Chest/axilla: Normal chest wall appearance and motion. Nontender with no deformity. No lesions are appreciated. Cardiovascular: Regular rate and rhythm with a normal S1 and S2. No gallops, murmurs, or rubs. Normal PMI, no JVD. No pulse deficits. Respiratory: Lungs have equal breath sounds bilaterally, clear to auscultation and percussion. No rales, rhonchi or wheezes noted. No increased work of breathing, no retractions or nasal flaring. Abdomen/GI: Soft, non-tender, with normal bowel sounds. No distension or tympany. No guarding or rebound. No evidence of tenderness throughout. Male : Normal genitalia with no discharge or lesions. Skin: Warm, dry with normal turgor. Normal color with no rashes, no lesions, and no evidence of cellulitis. MS/ Extremity: Pulses equal, no cyanosis. Neurovascular intact. Full, normal range of motion., bilateral aka Neuro: Awake and alert, GCS 15, oriented to person, place, time, and situation. Cranial nerves II-XII grossly intact. Motor strength 5/5 in all extremities. Sensory grossly intact. Cerebellar exam normal. Normal gait. Psych: Awake, alert, with orientation to person, place and time. Behavior, mood, and affect are within normal limits. 08:48 Back: pain, that is mild, ROM is normal, normal spinal alignment noted, CVA tenderness, is absent, 08:48 Musculoskeletal/extremity: DVT Exam: No signs of deep vein thrombosis. no pain, no swelling, no tenderness, negative Homans' sign noted on exam, no appreciated bluish discoloration, no erythema, no increased warmth, Vital Signs: 08:19 Pulse 67; Resp 16; Temp 97.9(O); Pulse Ox 100% on R/A; Weight 81.65 kg; Height 5 ft. 7 ss in. ; Pain 10/10; 08:23 BP 166 / 93; ss 08:19 Body Mass Index 28.19 (81.65 kg, 170.18 cm) 08:19 Pain Scale: Adult ss MDM: 08:12 Medical Screening Exam initiated golden 08:52 Differential diagnosis: arthritis, strain, Herniated disc. Data reviewed: vital signs, golden nurses notes. Consideration of Admission/Observation Escalation of care including admission/observation considered. I considered the following discharge prescriptions or medication management in the emergency department Medications were administered in the Emergency Department. See MAR. Historians other than the Patient: pt well informed. Care significantly affected by the following chronic conditions: Hypertension, cbp, gastritis, von willebrand. Counseling: I had a detailed discussion with the patient and/or guardian regarding the historical points, exam findings, and any diagnostic results supporting the discharge/admit diagnosis. Administered Medications: 09:02 Drug: [place] PO 10 mg-325 mg 1 tabs PO once Route: PO; 09:09 Follow up: Response: Medication Administered at Departure Disposition Summary: 10/13/24 09:00 Discharge Ordered Notes: Location: Home golden Problem: new golden Symptoms: have improved golden Condition: Stable golden Diagnosis - Other chronic pain - medication refill golden Followup: golden - With: Private Physician - When: 1 - 2 days - Reason: Recheck today's complaints, Continuance of care, Re-evaluation by your physician Discharge Instructions: - Discharge Summary Sheet golden - Chronic Back Pain golden - Chronic Pain, Adult golden - Chronic Back Pain, [id number] golden - Pain Medicine Instructions, [id number] golden Forms: - Medication Reconciliation Form golden - Antibiotic Education golden - Prescription Opioid Use golden - Patient Portal Instructions [facility] - Leadership Thank You Letter golden Prescriptions: - Tylenol-Codeine #3 300mg-30mg Oral tablet - take 2 tablets ORAL route every 6 hours As needed; 10 tablet; Refills: 0, golden Product Selection Permitted Signatures: Zachariah French MD MD cha Blanchard, Shelby, RN RN ss
[2024-10-13 09:15] VITALS: TEMP 97.9; O2SAT 100
[2024-10-13 09:16] VITALS: BP 166/93
== END 2024-10-13 09:10 | disposition home or self-care (01) ==
LOC: ER 08:07
DX: G89.29 Other chronic pain (principal); Z76.0 Encounter for issue of repeat prescription
CPT/HCPCS: 99283

== ENCOUNTER 2025-02-01 15:59 | Emergency (ER) | payer OTHER ==
--- OUTSIDE RECORDS SUMMARY | 2025-02-01 16:03 | XMS REPORT | Continuity of Care Document ---
Author Name Unknown Address [address] [facility] [place] [address] [facility] [place] Address [address] [facility] [place] [address] Care Team Providers Care Correction Officer Supervisor Name Role Phone PCP, PATIENT DOES NOT HAVE A Primary Care Physic venus Unavailable Miguel Calvin Attending Clinician Unavaila Fredis Enriquez Attending Clinician Unavailable MIKHAIL PUGH Attending Clinician Unavailable MIKHAIL PUGH Attending Clinician Unavailable Billy Reveles Attending Clinician [phone] Ross Adame Attending Clinician Unavailable [place] Wei MD Attending Clinician [phone] EDWIN HOLLIDAY Attending Clinician Unavailable EDWIN HOLLIDAY Attending Clinician Unavailable Edwin Holliday MD Attending Clinician [phone] Hernán Attending Clinician Unavail able Fredis Hilliard Admitting Clinician Unavailable Hernán Admitting Clinician Unavail able Payers Payer Name Policy Type Policy Number Effective Date Expirati on Date Source HIM [facility] [id number] 2024 00:00:00 [place] [id number] 2017 00:00:00 Allergies, Adverse Reactions, Alerts Allergy Name Allergy Type Status Severity Reaction(s) Onset Date Inactive Date Treating Clinician Comments Source PENICILL IN DRUG INGREDI Active Rash 03-18 00:00: 00 [facility] Penicill in Propensi ty to adverse reaction s Active Rash 03-18 00:00: 00 [facility] Penicill ins DA Active NE 2013-06 00:00: 00 [facility] Penicill ins DA Active NE RASH 2013-06 00:00: 00 [facility] Social History Social Habit Start Date Stop Date Quantity Comments Source Sexual orientation [facility] Sex assigned at 1965 00:00:00 1965 00:00:00 [facility] Smoking Status Start Date Stop Date Source Tobacco smoking consumption unknown [facility] Medications Ordered Medication Name Filled Medication Name Start Date Stop Date Current Medication? Ordering Clinician Indication Dosage Frequency Signature (SIG) Comments Components Source ketorolac (TORADOL) injection 30 mg 11-29 21:00: 00 11-29 20:13 :00 No 30mg 30 mg, Intramuscu lar, ONCE, 1 dose, On Thu11/29/24 at 1600, Routine [facility] dexamethaso ne sod phos PF injection 10 mg 11-29 20:15: 00 11-29 20:11 :00 No 10mg 10 mg, Intramuscu lar, ONCE, 1 dose, On Thu11/29/24 at 1515, 1 mL [facility] meloxicam 7.5 mg tablet 11-29 00:00: 00 Yes [id number] 7.5mg Take 1 tablet by mouth once daily as needed for Alternate with [place] for pain scale 4-6. [facility] HYDROcodone -acetaminop hen (NORCO) 10-325 mg tablet 1 tablet 2023-06 14:00: 00 06-13 13:23 :00 No 1{tbl} 1 tablet, Oral, ONCE, 1 dose, On Thu06/13/24 at 0800, AURELIANO [facility] HYDROcodone -acetaminop hen 5-325 mg tablet 2023-06 00:00: 00 06-13 00:00 :00 No 4647 1{tbl} Take 1-2 tablets by mouth every 6 (six) hours as needed for Pain (scale 4-6). Indication s: acute pain [facility] oxyCODONE immediate release tablet 10 mg 03-18 10:45: 00 03-18 10:07 :00 No 10mg 10 mg, Oral, ONCE, 1 dose, On Thu03/18/24 at 0545, AURELIANO, cafe team member approving Restricted medication : EDWIN HOLLIDAY [facility] Vital Signs Vital Name Observation Time Observation Value Comments S ource Systolic blood pressure 2024-12-01 05:04:00 160 mm[Hg] [facility] Diastolic blood pressure 2024-12-01 05:04:00 89 mm[Hg] [facility] Heart rate 2024-12-01 05:04:00 76 /min [facility] Body temperature 2024-12-01 05:04:00 36.5 Magi [facility] Respiratory rate 2024-12-01 05:04:00 18 /min [facility] Body height 2024-12-01 05:04:00 170.2 cm [facility] Body weight 2024-12-01 05:04:00 84.369 kg [facility] BMI 2024-12-01 05:04:00 29.13 kg/m2 [facility] Oxygen saturation in Arterial blood by Pulse oximetry 2024-12-01 05:04:00 97 /min [facility] Systolic blood pressure 2024-11-29 20:18:10 147 mm[Hg] [facility] Diastolic blood pressure 2024-11-29 20:18:10 94 mm[Hg] [facility] Heart rate 2024-11-29 20:18:10 76 /min [facility] Body temperature 2024-11-29 20:18:10 36.78 Magi [facility] Respiratory rate 2024-11-29 20:18:10 16 /min [facility] Oxygen saturation in Arterial blood by Pulse oximetry 2024-11-29 20:18:10 97 /min [facility] Body height 2024-11-29 19:27:00 170.2 cm [facility] Body weight 2024-11-29 19:27:00 84.369 kg [facility] BMI 2024-11-29 19:27:00 29.13 kg/m2 [facility] Systolic blood pressure 2024-06-13 12:11:00 180 mm[Hg] [facility] Diastolic blood pressure 2024-06-13 12:11:00 106 mm[Hg] [facility] Heart rate 2024-06-13 12:11:00 77 /min [facility] Body temperature 2024-06-13 12:11:00 36.39 Magi [facility] Respiratory rate 2024-06-13 12:11:00 24 /min [facility] Body height 2024-06-13 12:11:00 170.2 cm [facility] Body weight 2024-06-13 12:11:00 84.913 kg [facility] BMI 2024-06-13 12:11:00 29.32 kg/m2 [facility] Oxygen saturation in Arterial blood by Pulse oximetry 2024-06-13 12:11:00 99 /min [facility] Systolic blood pressure 2024-03-18 09:37:00 147 mm[Hg] [facility] Diastolic blood pressure 2024-03-18 09:37:00 100 mm[Hg] [facility] Heart rate 2024-03-18 09:37:00 76 /min [facility] Body temperature 2024-03-18 09:37:00 36.78 Magi [facility] Respiratory rate 2024-03-18 09:37:00 16 /min [facility] Body height 2024-03-18 09:37:00 170.2 cm [facility] Body weight 2024-03-18 09:37:00 88.451 kg [facility] BMI 2024-03-18 09:37:00 30.54 kg/m2 [facility] Oxygen saturation in Arterial blood by Pulse oximetry 2024-03-18 09:37:00 99 /min [facility] Encounters Start Date/Time End Date/Time Encounter Type Admission Type Attending [facility] Facility Care Department Encounter ID Source 2025-02-24 13:30:00 Inpatient Miguel Curry [facility] [id number] [facility] 2023-04-30 10:00:00 Inpatient Fredis Asencio [facility] [id number] [facility] 2024-12-01 00:07:00 2024-12-01 01:10:00 Emergency X MIKHAIL PUGH [facility] [id number] [facility] 2024-11-29 14:30:00 2024-11-29 15:57:00 Emergency X Billy Rader [facility] [id number] [id number] [facility] 2024-11-05 07:42:00 2024-11-05 09:37:00 Emergency Ross Gonzalez [facility] [id number] [facility] 2024-06-13 06:16:00 2024-06-13 07:28:00 Emergency North Wei [facility] [id number] [id number] 4.2.7.2.686 [id number] [facility] 2024-03-18 04:48:00 2024-03-18 05:29:00 Emergency X EDWIN HOLLIDAY WAKILI [facility] ERT [id number] [facility] 2024-03-18 04:48:00 2024-03-18 05:29:00 Emergency Edwin Holliday [facility] [id number] [id number] [id number] [id number] [facility] 2022-07-07 09:32:00 2022-07-07 09:32:00 Outpatient ISSAC Fredis Hilliard [facility] [id number] [facility] Results Test Description Test Time Test Comments Results Resul t Comments Source - US RETROPERITONEAL COMPLETE 2022-07-07 11:20:00 [facility] 1965 Sex: M [place]: [facility] [address]: REG Name: HI PEREZ [facility] : 1965 Age/S: 56/M [address] [facility] Unit #: [id number] Loc: [place], [place] [address] Phys: Fredis Hilliard MD Acct: [id number] Dis Date: Status: REG CLI PHONE #: [phone] Exam Date: 07/07/2022 1014 FAX #: [phone] Reason: ESSENTIAL PRIMARY HTN EXAMS: CPT CODE: [id number] US RETROPERITONEAL COMPLETE 30691 Retroperitoneal ultrasound with duplex imaging. Location: H19 [...] CHEW MD PAGE 1 Signed Report (CONTINUED) [place]: [facility] [address]: REG Name: HI PEREZ [facility] : 1965 Age/S: 56/M [address] [facility] Unit #: [id number] Loc: [place], [place] [address] Phys: Fredis Hilliard MD Acct: [id number] Dis Date: Status: REG CLI PHONE #: [phone] Exam Date: 07/07/2022 1014 FAX #: [phone] Reason: ESSENTIAL PRIMARY HTN EXAMS: CPT CODE: [id number] US RETROPERITONEAL COMPLETE 36378 (Continued) Facility ACR Accreditation for Ultrasound - July 2011 CC: Fredis Hilliard MD Technologist: CHARI LEE Transcribed Date/Time/By: 07/07/2022 (1120) : By: [email or web address] Orig Print D/T: S: 07/07/2022 (1124) PAGE 2 Signed Report - DUP AO/IVC/IV/BPG LTD 2022-07-07 11:20:00 [facility] 1965 Sex: M [place]: [facility] [address]: REG Name: HI PEREZ [facility] : 1965 Age/S: 56/M [address] [facility] Unit #: [id number] Loc: [place] [address] Phys: Fredis Hilliard MD Acct: [id number] Dis Date: Status: REG CLI PHONE #: [phone] Exam Date: 07/07/2022 [facility] FAX #: [phone] Reason: ESSENTIAL PRIMARY HTN EXAMS: CPT CODE: [id number] DUP AO/IVC/IV/BPG LTD 37434 Retroperitoneal ultrasound with duplex imaging. Location: H19 [...] CHEW MD PAGE 1 Signed Report (CONTINUED) [place]: [facility] [address]: REG Name: CHRISHI [facility] : 1965 Age/S: 56/M [address] [facility] Unit #: [id number] Loc: [place], [place] [address] Phys: Fredis Hilliard MD Acct: [id number] Dis Date: Status: REG CLI PHONE #: [phone] Exam Date: 07/07/2022 1014 FAX #: [phone] Reason: ESSENTIAL PRIMARY HTN EXAMS: CPT CODE: [id number] DUP AO/IVC/IV/BPG LTD 12733 (Continued) Facility ACR Accreditation for Ultrasound - July 2011 CC: Fredis Hilliard MD Technologist: GAGANDEEP PASCUAL, ESTEFANYS Transcribed Date/Time/By: 07/07/2022 (1120) : By: [email or web address] Orig Print D/T: S: 07/07/2022 (1126) PAGE 2 Signed Report - VEIN REFLUX STUDY 2019-05-09 11:48:00 [place]: [facility] [address]: PRE Name: HI PEREZ [facility] : 1965 Age/S: 53/M [address] Unit #: [id number] Loc: [place], [place] [address] Phys: David James MD Acct: [id number] Dis Date: Status: PRE CLI PHONE #: [phone] Exam Date: 05/04/2019 1110 FAX #: [phone] Reason: VENOUS INSUFFICIENSCY EXAMS: CPT CODE: [id number] VEIN REFLUX STUDY 58317 BILATERAL LOWER EXTREMITIES VENOUS DUPLEX INCLUDING ADDITIONAL [...] significant reflux PAGE 1 Signed Report (CONTINUED) [place]: [facility] [address]: PRE Name: HI PEREZ [facility] : 1965 Age/S: 53/M [address] [facility] Unit #: [id number] Loc: [place], [place] [address] Phys: David James MD Acct: [id number] Dis Date: Status: PRE CLI PHONE #: [phone] Exam Date: 05/04/2019 1110 FAX #: [phone] Reason: VENOUS INSUFFICIENSCY EXAMS: CPT CODE: [id number] VEIN REFLUX STUDY 48413 (Continued) - Distal thigh: 3.1 mm, no [...] Michelle; David James MD Technologist: Susan Damon RT(R)ABNERMS,RVT; ADALBERTO MURPHY RDMS Transcribed Date/Time/By: 05/09/2019 (9770) : By: [email or web address] Orig Print D/T: S: 05/09/2019 (1850) PAGE 2 Signed Report - MRI L-SPINE W/O CONT 2018-12-28 10:18:00 FAX: Bernardino Gurjit Cline Cristofer [phone] [place]: [facility] [address]: REG FAX: Jordan Ocampo MD [phone] Name: HI PEREZ [facility] : 1965 Age/S: 53/M [address] [facility] Unit #: [id number] Loc: [place] [address] Phys: Jordan Novoa MD Acct: [id number] Dis Date: Status: REG [facility] PHONE #: [phone] Exam Date: 12/28/2018 0934 FAX #: [phone] Reason: LUMBAR STENOSIS EXAMS: CPT CODE: [id number] MRI L-SPINE W/O CONT 32453 EXAM: MRI LUMBAR SPINE WITHOUT CONTRAST INDICATION: [...] 1 Signed Report (CONTINUED) FAX: Gurjit Quinn [phone] [place]: [facility] St: REG FAX: Jordan Ocampo MD [phone] Name: HI PEREZ [facility] : 1965 Age/S: 53/M [address] [facility] Unit #: [id number] Loc: [place], [place] [address] Phys: Jordan Novoa MD Acct: [id number] Dis Date: Status: REG [facility] PHONE #: [phone] Exam Date: 12/28/2018 0934 FAX #: [phone] Reason: LUMBAR STENOSIS EXAMS: CPT CODE: [id number] MRI L-SPINE W/O CONT 94325 (Continued) Discogenic disease and facet joint arthropathy throughout the lumbar spine. Minimal retrolisthesis of L3 over L4 with mild spinal canal stenosis. Moderate right neuroforaminal stenosis at L3-L4. Postsurgical changes at L4-S1. LOCATION: A 1 at 1018 Reported and signed by: SHEREE HALE M.D. CC: Gurjit Cline MD; Jordan Novoa MD Technologist: Fredis Talley RT(R)(CT)(MRI)ARRT Transcribed Date/Time/By: 12/28/2018 (1018) :16 Orig Print D/T: S: 12/28/2018 (4942) PAGE 2 Signed Report CBC W/O [id number] 10:50:00* Test Item Value Reference Range Interpretation [...] 9.4-12.4 N Notes Date/Time Note Provider Source 2024-12-01 01:08:09 Pt reported to ED registration pt wanted to leave. ERP notified. Augustin Boothe RN [facility] 2024-12-01 00:00:23 Pt feels like he is going through withdrawals, takes oxycodone for chronic pain but hasn't had any for 6 days. C/o tossing and turning, unable to relax, feeling jittery States he ran out faster than he should have because he has been taking extra Estelita Mark RN [facility] 2024-11-29 15:54:05 Patient is awake and alert, oriented x4, speech is clear and appropriate, ambulatory with a steady gait. Advised to seek medical attention for new/prolonged/worsening of symptoms. Respirations even and unlabored, no distress. Vielka Reyes RN [facility] 2024-11-29 14:27:44 Pt arrived ambulatory without assist. Pt c/o chronic "arthritis" pain that starts in knees and then travels up his back. Tanya Edwards RN [facility] 2024-11-05 08:06:00 [facility] EMERGENCY PROVIDER REPORT REPORT#:[id number] REPORT STATUS: Signed DATE:11/05/24 TIME: 805 PATIENT: HI PEREZ JR UNIT #: [id number] ROOM/BED: : 65 AGE: 58 SEX: M PCP PHYS: Fredis Hilliard MD SERVICE AUTHOR: Meche Campbell ELECTRICAL SYSTEMS ENGINEER REP SRV REP SRV TM: 0806 * ALL edits or amendments must be made on the electronic/computer document * Meche Campbell 11/05/24 0806: HPI-Back Pain 40 and Over Free Text HPI Notes Free Text HPI Notes Patient is a 58-year-old male with significant medical history for factor VIII disorder, laminectomy with fusion, and chronic back pain. Who presented to the ED complaining of arthritis pain on bilateral legs. Patient stated that he is under the care of oncologist, and he is managing his chronic pain. Patient stated that he has been taking more than the recommended dose to control pain, but is not working and he ran out of his medication. He decided to come in for pain control. Checking takes his PDM patient has received 180 tablets of oxycodone about 3 weeks ago. General Confirmed Patient Yes Patient Type New patient Initial Greet Date/Time 11/05/2444 Presentation Chief Complaint Pain, back Sudden in Onset? No Risk-Back Pain 40 and Over Risk Stratification )( Abdominal Aortic Aneurysm Risk factors reviewed )( Thoracic Aortic Dissection Risk factors reviewed Review of Systems Focused Review of Systems Constitutional Reports: Fatigue, Malaise, Weakness - generalized. Denies: Chills, Fever, Lethargy. Respiratory Denies: Cough, non-productive, Cough, productive, Shortness of breath. Cardiovascular Denies: Chest pain, Syncope. GI Denies: Abdominal pain, Diarrhea, Nausea, Vomiting. Male Denies: Flank pain, Testicular pain. Musculoskeletal Reports: Back pain, Extremity pain, Extremity swelling, Joint pain, Joint swelling, Lumbar pain, Myalgia, Neck pain, Thoracic pain. Hematologic Denies: Bleeding, Bruising. Neurologic Denies: Bladder dysfunction, Bowel dysfunction, Change LOC, Dizziness, Focal weakness, Headache, Numbness, Slurred speech. Past Medical History - Adult Stated Complaint LOWER BACK PAIN, (ARTHRITIS) Allergies Coded Allergies: Penicillins (Mild, RASH 06/07/14) Home Medications Reported Medications Hydrocodone/Acetaminophen (HYDROcodone/APAP ) 1 TAB PO QID PRN PRN PAIN LISINOPRIL (ZESTRIL) 40 MG PO DAILY amLODIPine (NORVASC) 10 MG PO DAILY HYDROCHLOROTHIAZIDE (HCTZ) 25 MG PO DAILY FENOFIBRATE 160 MG PO DAILY ROSUVASTATIN 20 MG PO DAILY ESOMEPRAZOLE MAG DR (NexIUM) 40 MG PO DAILY Past Medical History: Reports: Hypertension. Past Surgical History: Reports: Appendectomy. Physical Exam Vital Signs Vital Signs First Documented: Result Date Time Pulse Ox 90 11/05 0646 B/P 133/84 11/05 745 B/P Mean 100.7 11/05 745 Temp 36.7 11/05 745 Pulse 82 11/05 745 O2 Delivery Room air 11/05 0854 Resp 11/05 Last Documented: Result Date Time Pulse Ox 99 11/05 853 B/P 124/67 11/05 853 O2 Delivery Room air 11/05 853 Temp 36.8 11/05 853 Pulse 77 05/17 0854 Resp 14 11/05 0854 B/P Mean 100.7 11/05 0746 Review of Vital Signs Reviewed Focused PE General/Const General/Const Awake, Alert Resp/Chest Respiratory/Chest Breath sounds NL, Breath sounds = bilat, No respiratory distress, No rales, No rhonchi, No wheezing Cardiovascular Cardiovascular Heart rate NL, Regular rhythm, Heart sounds NL, No murmurs, Peripheral circulation NL Abdomen/GI Abdomen/GI Soft, Non-tender, No guarding, No rebound, No distention, No palpable mass, No pulsatile mass MS Back Flank/Spine/Paraspinal Lumbar paraspinal tend, Lumbar spine tender. Muscle Spasm/ROM Lumbar area spasm, Sacral area spasm. Neurologic Neurologic Oriented X3, Speech NL, No motor deficits, No sensory deficits, Reflexes equal bilat Re-Evaluation MDM Re-Evaluation/Progress #1 Re-Eval Status Improved Back Pain MDM Note The patient presented with acute back pain. The patient is now resting comfortably and feels better, is alert, talkative, interactive and in no distress. The repeat examination is unremarkable and benign. The patient is neurologically intact and is ambulatory in the ED. The patient has no fever, no bowel or bladder incontinence, no saddle anesthesia, and is otherwise alert and well-appearing. The history, physical examination, and diagnostics (if any) do not suggest the presence of acute spinal epidural abscess, acute spinal epidural bleed, cauda equina syndrome, abdominal aortic aneurysm, aortic dissection or other process requiring further testing, treatment or consultation in the emergency department. The vital signs have been stable. The patient's condition is stable and appropriate for discharge. The patient will pursue further outpatient evaluation with the primary care physician or other designated or consulting physician as indicated in the discharge instructions. ED Course Medication(s) Ordered Medication(s) Ordered: Central Nervous System Agents Sig/Perico Start time Last Medication Dose Route Stop Time Status Admin Acetaminophen/ 1 UDTAB X1ED STA 11/05 804 DC 11/05 Codeine Phosphate PO 11/0539 Ketorolac 60 MG X1ED STA 11/05 804 DC 11/05 Tromethamine IM 11/05 805 0839 Patient Discharge Departure Vital Signs/Condition Vital Signs First Documented: Result Date Time Pulse Ox 90 11/05 745 B/P 133/84 05/17 0746 B/P Mean 100.7 11/05 0646 Temp 36.7 11/05 0746 Pulse 82 11/05 0746 O2 Delivery Room air 11/05 0854 Resp 14 11/06 0754 Last Documented: Result Date Time Pulse Ox 99 11/06 0754 B/P 124/67 11/05 0854 O2 Delivery Room air 11/06 0754 Temp 36.8 11/05 0854 Pulse 77 11/05 0854 Resp 14 11/05 0854 B/P Mean 100.7 11/05 0746 All vital signs available at the time of this entry have been reviewed. Condition Improved Clinical Impression Clinical Impression Primary Impression: Chronic back pain Secondary Impressions: Arthritis Disposition Decision Discharge )( Discharged to Home Yes )( Time 0843 )( Date 11/05/24 Discharge/Care Plan Counseled Regarding Diagnosis, Need for follow-up, When to return to ED Patient Instructions ED Opiate Abuse, ED Pain Management: Chronic, Taking Opioid Medicine Additional Instructions Nonopioid therapies can be more effective and safer than opioids Take time to learn about nonopioid options which may work better with fewer risks and side effects. Psychological and social factors can also influence pain which may be better addressed by nonopioid treatment options. Nonopioid medications include drugs such as acetaminophen (Tylenol ), nonsteroidal anti-inflammatory drugs (NSAIDs) like ibuprofen (Advil ), gabapentin, and certain anti-depressants. These medications have shown to relieve certain types of pain better than opioids, including surgical dental pain, headache, back pain, and others.2 You can find out from your doctor which conditions are best treated by each nonopioid medication. Nonopioid nonpharmacologic therapies include options such as physical therapy, exercise and weight loss, acupuncture, and massage. These therapies have the potential to improve pain and function without risk for serious harms. Behavioral treatments such as cognitive behavioral therapy use a psychological approach to change your physical, behavioral, and emotional responses to pain and stress. These treatments can improve pain and function without risk for serious harms. Opioids come with increased risks for serious harms. Some risks include developing opioid use disorder (OUD), sometimes referred to as opioid addiction, fractures, falls, and overdose. In the [place] in 2021, among persons 12 years and older, 8.5 million people reported misuse of prescription pain relievers in the past year.3 5.6 million people had a prescription pain reliever use disorder in the same period. Ask questions to clarify the risks and realistic benefits for opioid therapy. By having conversations with your doctor, you can together consider the risks and benefits and help prevent potential harms from opioid use. Discharge Note I have spoken with the patient and/or caregivers. I have explained the patient's condition, diagnoses and treatment plan based on the information available to me at this time. I have answered the patient's and/or caregiver's questions and addressed any concerns. The patient and/or caregivers have as good an understanding of the patient's diagnosis, condition and treatment plan as can be expected at this point. The vital signs have been stable. The patient's condition is stable and appropriate for discharge from the emergency department. The patient will pursue further outpatient evaluation with the primary care physician or other designated or consulting physician as outlined in the discharge instructions. The patient and/or caregivers are agreeable to this plan of care and follow-up instructions have been explained in detail. The patient and/or caregivers have received these instructions in written format and have expressed an understanding of the discharge instructions. The patient and/or caregivers are aware that any significant change in condition or worsening of symptoms should prompt an immediate return to this or the closest emergency department or a call to 911. Ross Adame 11/08/24 0724: Patient Discharge Departure Supervising Physician Note MidLv Saw Pt Alone I have reviewed the PA/ELECTRICAL SYSTEMS ENGINEER's note and plan of care. I was available for consultation as needed at all times during the patient's visit in the emergency department. I agree with the clinical impression, plan and disposition. at 0701 at 0724 RPT #:[id number] END OF REPORT [facility] 2024-06-13 07:27:57 PT D/C home. GCS15, VS stable, no ataxia noted. Given one prescription (changed to [facility] pharmacy per pt request) and D/C paperwork. Pt ambulatroy at time of discharge. Pt educated on diagnosis, med usage, follow up care, s/s worsening condition. Pt verbalized understanding. AL TECHNICIAN Edda Mcgee RN [facility] 2024-06-13 06:06:23 Pt ambulatory to triage for [...] of lumbar fusion and laminectomy and arthritis AL TECHNICIAN Calderon Kennedy RN [facility] 2024-03-18 05:13:37 Awake, alert oriented X4, respiratory [...] noted upon discharge Pt ambulated to the [facility] with steady gait Leslie Hoover RN [facility] 2024-03-18 04:38:22 CC: Pt was prescribed oxycodone for lumbar fusion pain by . Pt states the PCP refilled his prescription, and he went to [facility] but pharmacist refused refill. HEB [...] all ext without difficulty, amb without assistance [facility]
[2025-02-01 16:53] LABS: Urine Culture Reflex Order NOT NEEDED; Urine Microscopic Reflex YN ORDER UMIC
[2025-02-01 16:54] LABS: Sqamous Epithelial <5 /HPF (None Seen); Urine Crystals Unidentified Few /HPF (None Seen)
--- NOTE | 2025-02-01 17:02 | ER ---
Nurse's Notes [facility] Name: Jim Maldonado Jr Age: 59 yrs Sex: Male : 1965 Arrival Date: 02/01/2025 Time: 15:59 Bed 14 Private MD: Diagnosis: Sciatica, right side Presentation: 02/01 16:08 Chief complaint: Patient states: 'RT LOWER AND MIDDLE BACK PAIN THAT IS GOING DOWN MY dd2 RT LEG'. PT REPORTS HX OF CHRONIC BACK PAIN. Coronavirus screen: At this time, the client does not indicate any symptoms associated with coronavirus-19. Ebola Screen: No symptoms or risks identified at this time. Risk Assessment: Do you want to hurt yourself or someone else? Patient reports no desire to harm self or others. Onset of symptoms was January 31, 2025. 16:08 Method Of Arrival: Ambulatory dd2 16:08 Acuity: MARCEL 4 dd2 16:11 Initial Sepsis Screen: Does the patient meet any 2 criteria? No. Patient's initial dd2 sepsis screen is negative. Does the patient have a suspected source of infection? No. Patient's initial sepsis screen is negative. Triage Assessment: 16:11 General: Appears in no apparent distress. uncomfortable, Behavior is calm, cooperative, dd2 appropriate for age. 16:11 Pain: Complains of pain in lumbar area, right low back, right lower back and right dd2 gluteus roshan Pain currently is 10 out of 10 on a pain scale. Musculoskeletal: Circulation, motion, and sensation intact. Range of motion: intact in all extremities, Reports pain in lumbar area, right low back, right lower back and right gluteus roshan. Historical: - Allergies: 16:11 PENICILLINS; dd2 - PMHx: 16:11 chronic back pain; gastritis; Hypertensive disorder; Rashi Willebrand Disease; dd2 - PSHx: 16:11 laminectomy; Spinal Fusion; dd2 - Immunization history:: Adult Immunizations unknown. - Infectious Disease History:: Denies. - Social history:: Smoking status: Patient denies any tobacco usage or history of. Screenin:00 [facility] ED Fall Risk Assessment (Adult) History of falling in the last 3 months, me1 including since admission No falls in past 3 months (0 pts) Confusion or Disorientation No (0 pts) Intoxicated or Sedated No (0 pts) Impaired Gait No (0 pts) Mobility Assist Device Used No (0 pt) Altered Elimination No (0 pt) Score/Fall Risk Level 0 - 2 = Low Risk Maintained a safe environment, Provided non-skid footwear, Hourly rounding (assess needs \T\ fall precautionary measures) done. Abuse screen: Denies threats or abuse. Nutritional screening: No deficits noted. Tuberculosis screening: No symptoms or risk factors identified. Assessment: 17:00 General: Appears uncomfortable, well groomed, well developed, well nourished, Behavior me1 is calm, cooperative, appropriate for age, Reports 'RT LOWER AND MIDDLE BACK PAIN THAT IS GOING DOWN MY RT LEG'. PT REPORTS HX OF CHRONIC BACK PAIN. Pain: Complains of pain in right low back and right lower back Pain radiates to right hamstring and right gluteus roshan Pain currently is 10 out of 10 on a pain scale. Quality of pain is described as sharp, shooting, Pain began gradually, Is continuous. Neuro: Level of Consciousness is awake, alert, obeys commands, Oriented to person, place, time, situation, Appropriate for age. Cardiovascular: Patient's skin is warm and dry. Respiratory: Airway is patent Respiratory effort is even, unlabored, Respiratory pattern is regular, symmetrical. GI: No signs and/or symptoms were reported involving the gastrointestinal system. : No signs and/or symptoms were reported regarding the genitourinary system. EENT: No signs and/or symptoms were reported regarding the EENT system. Derm: Skin is intact, is healthy with good turgor, Skin is pink, warm \T\ dry. Musculoskeletal: Reports pain in right low back and right gluteus roshan and right lower back. Vital Signs: 16:11 BP 177 / 104; Pulse 95; Resp 17; Temp 98.2; Pulse Ox 100% on R/A; Pain 10/10; dd2 17:23 BP 167 / 97; Pulse 92; Resp 16; Temp 98.2; Pulse Ox 100% ; me1 16:11 Pain Scale: Adult dd2 ED Course: 16:02 Patient arrived in ED. cj3 16:03 Christin Chadwick FNP-C is [facility]. kb 16:03 Darrell Davis DO is Attending Physician. kb 16:11 Triage completed. dd2 16:11 Arm band placed on right wrist. dd2 17:00 Patient has correct armband on for positive identification. Bed in low position. Call me1 light in reach. Side rails up X2. Provided Education on: POC. Verbalized understanding.. Client placed on continuous cardiac and pulse oximetry monitoring. NIBP monitoring applied. Pulse ox on. NIBP on. 17:10 Michelle Singer, RN is Primary Nurse. me1 17:23 No provider procedures requiring assistance completed. Patient did not have IV access me1 during this emergency room visit. Administered Medications: 17:17 Drug: Dexamethasone IM 10 mg IM once Route: IM; Site: right deltoid; me1 17:18 Drug: Ketorolac IM 30 mg IM once Route: IM; Site: left deltoid; me1 Medication: 17:00 VIS not applicable for this client. me1 Outcome: 17:02 Discharge ordered by . kb 17:23 Discharged to home ambulatory, me1 17:23 Condition: stable 17:23 Discharge instructions given to patient, Instructed on discharge instructions, follow up and referral plans. medication usage, Demonstrated understanding of instructions, follow-up care, medications, Prescriptions given X 2, 17:24 Patient left the ED. me1 Signatures: Christin Chadwick, GLOBAL CLIMATE CHANGE ANALYST-C GLOBAL CLIMATE CHANGE ANALYST-Ckb Michelle Singer, RN RN me1 ALEX WINTER RN RN dd2 Dori Monteiro cj3 Corrections: (The following items were deleted from the chart) 16:13 16:08 Onset of symptoms is unknown. dd2 dd2 17:19 16:08 Chief complaint: Patient states: 'RT LOWER AND MIDDLE BACK PAIN THAT IS GOING me1 DOWN MY RT LEG'. PT REPORTS HX OF CHRONIC BACK PAIN dd2
--- NOTE | 2025-02-01 17:02 | EDPHYS ---
Physician Documentation [facility] Name: Jim Maldonado Jr Age: 59 yrs Sex: Male : 1965 Arrival Date: 02/01/2025 Time: 15:59 Bed 14 Private MD: ED Physician Darrell Davis HPI: 02/01 16:56 This 59 yrs old Male presents to ER via Ambulatory with complaints of Back kb Pain - LOWER, Leg Pain. 17:00 Pt is a 59 year old male who presents for chronic low back pain. States he takes kb oxycodone for this, but he has had pain to right buttock that radiates down right leg since yesterday that the oxycodone is helping. States he gets this pain intermittently. Denies urinary symptoms, injury, fall. Historical: - Allergies: 16:11 PENICILLINS; dd2 - PMHx: 16:11 chronic back pain; gastritis; Hypertensive disorder; Rashi Willebrand Disease; dd2 - PSHx: 16:11 laminectomy; Spinal Fusion; dd2 - Immunization history:: Adult Immunizations unknown. - Infectious Disease History:: Denies. - Social history:: Smoking status: Patient denies any tobacco usage or history of. ROS: 16:55 Constitutional: As per HPI kb Exam: 16:55 Constitutional: This is a well developed, well nourished patient who is awake, alert, kb and in no acute distress. Head/Face: Normocephalic, atraumatic. ENT: Moist Mucous membranes Cardiovascular: Regular rate Respiratory: Respirations even and unlabored. No increased work of breathing. Talking in full sentences Skin: Warm, dry with normal turgor. Normal color. MS/ Extremity: Pulses equal, no cyanosis. Neurovascular intact. Full, normal range of motion. Neuro: Awake and alert, GCS 15, oriented to person, place, time, and situation. 16:55 Back: pain, that is moderate, of the right low back, 16:55 Musculoskeletal/extremity: Extremities: grossly normal except: noted in the right lower back and right gluteus roshan: pain, tenderness, ROM: intact in all extremities, Circulation is intact in all extremities. Sensation intact. Weight bearing: able to fully bear weight, Vital Signs: 16:11 BP 177 / 104; Pulse 95; Resp 17; Temp 98.2; Pulse Ox 100% on R/A; Pain 10/10; dd2 17:23 BP 167 / 97; Pulse 92; Resp 16; Temp 98.2; Pulse Ox 100% ; me1 16:11 Pain Scale: Adult dd2 MDM: 16:03 Medical Screening Exam initiated kb 16:57 Differential diagnosis: arthritis, strain, sciatica, Herniated disc. Data reviewed: kb vital signs, nurses notes. Test considered but Not performed: X-ray: xray considered but pt has no bony tenderness. Counseling: I had a detailed discussion with the patient and/or guardian regarding the historical points, exam findings, and any diagnostic results supporting the discharge/admit diagnosis, the need for outpatient follow up, a family practitioner, to return to the emergency department if symptoms worsen or persist or if there are any questions or concerns that arise at home. 02/01 16:15 Order name: UA Rfx Kapil Cult if indicated; Complete Time: 16:55 kb Administered Medications: 17:17 Drug: Dexamethasone IM 10 mg IM once Route: IM; Site: right deltoid; vt1 17:18 Drug: Ketorolac IM 30 mg IM once Route: IM; Site: left deltoid; vt1 Disposition: 18:46 I was immediately available on-site in the Emergency Department for consultation in the ms3 care of the patient. Disposition Summary: 02/01/25 17:02 Discharge Ordered Notes: Location: Home kb Condition: Stable kb Diagnosis - Sciatica, right side kb Followup: kb - With: Emergency Department - When: As needed - Reason: Worsening of condition Followup: kb - With: Private Physician - When: 2 - 3 days - Reason: Recheck today's complaints, Continuance of care, Re-evaluation by your physician Discharge Instructions: - Discharge Summary Sheet kb - Sciatica, [id number] kb Forms: - Medication Reconciliation Form kb - Antibiotic Education kb - Prescription Opioid Use kb - Patient Portal Instructions kb - Leadership Thank You Letter kb Prescriptions: - Prednisone 20 mg Oral Tablet - take 1 tablet ORAL route once daily for 5 days; 5 tablet; Refills: 0, Product kb Selection Permitted - Diclofenac Sodium 75 mg Oral tablet, delayed release (enteric coated) - take 1 tablet ORAL route 2 times per day As needed; 30 tablet; Refills: 0, kb Product Selection Permitted Signatures: Dispatcher [employer] Christin Banerjee, SERVER ADMINISTRATOR-C SERVER ADMINISTRATOR-Ckb Darrell Davis DO DO ms3 Michelle Singer, RN RN me1 ALEX WINTER RN RN dd2
[2025-02-01] MEDS ORDERED: KETOROLAC 30 MG/ML INJ ONE (17:11)
[2025-02-01 17:42] VITALS: TEMP 98.2; O2SAT 100
[2025-02-01 17:43] VITALS: BP 167/97
== END 2025-02-01 17:24 | disposition home or self-care (01) ==
LOC: ER 15:59
DX: M54.31 Sciatica, right side (principal)
CPT/HCPCS: 81001; 96372; 99284; J1100

== ENCOUNTER 2025-03-09 15:26 | Emergency (ER) | payer OTHER ==
--- OUTSIDE RECORDS SUMMARY | 2025-03-09 15:30 | XMS REPORT | Continuity of Care Document ---
Author Name Unknown Address [address] [facility]. 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 Name Role Phone Unknown, Attending Primary Care Physician Fredis Abbott Attending Clinician Unavailable Edwin Holliday MD Attending Clinician [phone] North Wei MD Attending Clinician [phone] Laz Bernal DO Attending Clinician [phone] BILLY RADER Attending Clinician Unavailable BILLY RADER Attending Clinician Unavailable Miguel Calvin Attending Clinician UnavailMIKHAIL Banerjee Attending Clinician Unavailable MIKHAIL PUGH Attending Clinician Unavailable Billy Reveles Attending Clinician Ross Adame Attending Clinician Unavailable EDWIN HOLLIDAY Attending Clinician Unavailable EDWIN HOLLIDAY Attending Clinician Unavailable CATHERINE_Fabio Attending Clinician Unavail able Fredis Hilliard Admitting Clinician Unavailable BILLY RADER Admitting Clinician Unavailable CATHERINE_Joan_ Admitting Clinician Unavail able Payers Payer Name Policy Type Policy Number Effective Date Expirati on Date Source [place] [id number] 2017 00:00:00 Allergies, Adverse Reactions, Alerts Allergy Name Allergy Type Status Severity Reaction(s) Onset Date Inactive Date Treating Clinician Comments Source Penicill in Propensi ty to adverse reaction s Active Rash 03-18 00:00: 00 [facility] PENICILL IN DRUG INGREDI Active Rash 03-18 00:00: 00 [facility] Penicill ins DA Active [place] 2013-06 00:00: 00 [facility] Penicill ins DA Active [place] RASH 2013-06 00:00: 00 [facility] Social History Social Habit Start Date Stop Date Quantity Comments Source Sexual orientation [facility] Sex assigned at 1965 00:00:00 1965 00:00:00 [facility] Smoking Status Start Date Stop Date Source Tobacco smoking consumption unknown [facility] Medications Ordered Medication Name Filled Medication Name Start Date Stop Date Current Medication? Ordering Clinician Indication Dosage Frequency Signature (SIG) Comments Components Source ketorolac (TORADOL) 30 mg/mL (1 mL) injection 30 mg 03-08 09:30: 00 03-08 08:35 :00 No 30mg 30 mg, Slow IV Push, ONCE, 1 dose, On Thu03/08/25 at 0430, Routine [facility] methocarbam oL (ROBAXIN) injection 1,000 mg 03-08 09:15: 00 03-08 08:38 :00 No 1000mg 1,000 mg, Slow IV Push, Administer over 3-5 Minutes, ONCE, 1 dose, On Thu03/08/25 at 0415, Routine [facility] dexAMETHaso ne PF (DECADRON) 10 mg/mL injection 10 mg 03-08 08:30: 00 03-08 08:36 :00 No 10mg 10 mg, Intramuscu lar, ONCE, 1 dose, On Thu03/08/25 at 0330, 1 mL [facility] FENTanyl (PF) (SUBLIMAZE) injection 75 mcg 03-06 21:15: 00 03-06 20:22 :00 No 75ug 75 mcg, Intramuscu lar, ONCE, 1 dose, On 03/06/25 at 1615, AURELIANO [facility] morphine (2 mg/mL) injection 6 mg 03-04 10:00: 00 03-04 10:00 :00 No 6mg 6 mg, Slow IV Push, ONCE, 1 dose, On 03/04/25 at 0500, STAT [facility] dexAMETHaso ne PF (DECADRON) 10 mg/mL injection 8 mg 03-02 23:15: 00 03-02 23:42 :00 No 8mg 8 mg, Slow IV Push, ONCE, 1 dose, On Renetta 03/02/25 at 1815, 1 mL [facility] ondansetron (ZOFRAN (PF)) injection 4 mg 03-02 23:15: 03-02 23:45 :00 No 4mg 4 mg, Slow IV Push, ONCE, 1 dose, On Renetta 03/02/25 at 1815, Administer over 2-5 Minutes, 2 mL [facility] morpHINE (4 mg/mL) injection 4 mg 03-02 23:15: 03-02 23:42 :00 No 4mg 4 mg, Slow IV Push, ONCE, 1 dose, On Renetta 03/02/25 at 1815, STAT [facility] methylPREDN ISolone (MEDROL, REAL,) 4 mg tablets 03-02 00:00: 00 Yes [id number] Take by mouth SEE-INSTRU CTIONS. follow package directions [facility] ketorolac (TORADOL) injection 30 mg 11-29 21:00: 00 11-29 20:13 :00 No 30mg 30 mg, Intramuscu lar, ONCE, 1 dose, On Thu11/29/24 at 1600, Routine [facility] dexamethaso ne sod phos PF injection 10 mg 11-29 20:15: 00 11-29 20:11 :00 No 10mg 10 mg, Intramuscu lar, ONCE, 1 dose, On Thu11/29/24 at 1515, 1 mL [facility] meloxicam 7.5 mg tablet 11-29 00:00: 00 Yes [id number] 7.5mg Take 1 tablet by mouth once daily as needed for Alternate with [place] for pain scale 4-6. [facility] HYDROcodone -acetaminop hen (NORCO) 10-325 mg tablet 1 tablet 2023-06 14:00: 00 06-13 13:23 :00 No 1{tbl} 1 tablet, Oral, ONCE, 1 dose, On Thu06/13/24 at 0800, AURELIANO [facility] HYDROcodone -acetaminop hen 5-325 mg tablet 2023-06 00:00: 00 06-13 00:00 :00 No [id number] 1{tbl} Take 1-2 tablets by mouth every 6 (six) hours as needed for Pain (scale 4-6). Indication s: acute pain [facility] oxyCODONE immediate release tablet 10 mg 03-18 10:45: 00 03-18 10:07 :00 No 10mg 10 mg, Oral, ONCE, 1 dose, On Thu03/18/24 at 0545, AURELIANO, wireless team member approving Restricted medication : EDWIN HOLLIDAY [facility] Vital Signs Vital Name Observation Time Observation Value Comments S irwin Systolic blood pressure 2025-03-08 09:23:00 148 mm[Hg] [facility] Diastolic blood pressure 2025-03-08 09:23:00 88 mm[Hg] [facility] Heart rate 2025-03-08 09:23:00 80 /min [facility] Body temperature 2025-03-08 09:23:00 36.61 Magi [facility] Respiratory rate 2025-03-08 09:23:00 18 /min [facility] Oxygen saturation in Arterial blood by Pulse oximetry 2025-03-08 09:23:00 99 /min [facility] Body height 2025-03-08 07:33:00 170.2 cm [facility] Body weight 2025-03-08 07:33:00 81.647 kg [facility] BMI 2025-03-08 07:33:00 28.19 kg/m2 [facility] Systolic blood pressure 2025-03-06 20:22:00 153 mm[Hg] [facility] Diastolic blood pressure 2025-03-06 20:22:00 94 mm[Hg] [facility] Heart rate 2025-03-06 20:22:00 95 /min [facility] Body temperature 2025-03-06 20:22:00 36.61 Magi [facility] Respiratory rate 2025-03-06 20:22:00 18 /min [facility] Oxygen saturation in Arterial blood by Pulse oximetry 2025-03-06 20:22:00 100 /min [facility] Body height 2025-03-06 19:37:00 170.2 cm [facility] Body weight 2025-03-06 19:37:00 81.647 kg [facility] BMI 2025-03-06 19:37:00 28.19 kg/m2 [facility] Systolic blood pressure 2025-03-04 10:00:00 142 mm[Hg] [facility] Diastolic blood pressure 2025-03-04 10:00:00 88 mm[Hg] [facility] Heart rate 2025-03-04 10:00:00 66 /min [facility] Body temperature 2025-03-04 10:00:00 36.89 Magi [facility] Respiratory rate 2025-03-04 10:00:00 18 /min [facility] Oxygen saturation in Arterial blood by Pulse oximetry 2025-03-04 10:00:00 98 /min [facility] Body height 2025-03-04 08:36:00 170.2 cm [facility] Body weight 2025-03-04 08:36:00 82.056 kg [facility] BMI 2025-03-04 08:36:00 28.33 kg/m2 [facility] Systolic blood pressure 2025-03-03 02:05:00 157 mm[Hg] [facility] Diastolic blood pressure 2025-03-03 02:05:00 94 mm[Hg] [facility] Heart rate 2025-03-03 02:05:00 72 /min [facility] Body temperature 2025-03-03 02:05:00 36.78 Magi [facility] Respiratory rate 2025-03-03 02:05:00 24 /min [facility] Oxygen saturation in Arterial blood by Pulse oximetry 2025-03-03 02:05:00 97 /min [facility] Body height 2025-03-02 22:43:00 170.2 cm [facility] Body weight 2025-03-02 22:43:00 84.369 kg [facility] BMI 2025-03-02 22:43:00 29.13 kg/m2 [facility] Systolic blood pressure 2024-12-01 05:04:00 160 mm[Hg] [facility] Diastolic blood pressure 2024-12-01 05:04:00 89 mm[Hg] [facility] Heart rate 2024-12-01 05:04:00 76 /min [facility] Body temperature 2024-12-01 05:04:00 36.5 Magi [facility] Respiratory rate 2024-12-01 05:04:00 18 /min [facility] Body height 2024-12-01 05:04:00 170.2 cm [facility] Body weight 2024-12-01 05:04:00 84.369 kg [facility] BMI 2024-12-01 05:04:00 29.13 kg/m2 [facility] Oxygen saturation in Arterial blood by Pulse oximetry 2024-12-01 05:04:00 97 /min [facility] Systolic blood pressure 2024-11-29 20:18:10 147 mm[Hg] [facility] Diastolic blood pressure 2024-11-29 20:18:10 94 mm[Hg] [facility] Heart rate 2024-11-29 20:18:10 76 /min [facility] Body temperature 2024-11-29 20:18:10 36.78 Magi [facility] Respiratory rate 2024-11-29 20:18:10 16 /min [facility] Oxygen saturation in Arterial blood by Pulse oximetry 2024-11-29 20:18:10 97 /min [facility] Body height 2024-11-29 19:27:00 170.2 cm [facility] Body weight 2024-11-29 19:27:00 84.369 kg [facility] BMI 2024-11-29 19:27:00 29.13 kg/m2 [facility] Systolic blood pressure 2024-06-13 12:11:00 180 mm[Hg] [facility] Diastolic blood pressure 2024-06-13 12:11:00 106 mm[Hg] [facility] Heart rate 2024-06-13 12:11:00 77 /min [facility] Body temperature 2024-06-13 12:11:00 36.39 Magi [facility] Respiratory rate 2024-06-13 12:11:00 24 /min [facility] Body height 2024-06-13 12:11:00 170.2 cm [facility] Body weight 2024-06-13 12:11:00 84.913 kg [facility] BMI 2024-06-13 12:11:00 29.32 kg/m2 [facility] Oxygen saturation in Arterial blood by Pulse oximetry 2024-06-13 12:11:00 99 /min [facility] Systolic blood pressure 2024-03-18 09:37:00 147 mm[Hg] [facility] Diastolic blood pressure 2024-03-18 09:37:00 100 mm[Hg] [facility] Heart rate 2024-03-18 09:37:00 76 /min [facility] Body temperature 2024-03-18 09:37:00 36.78 Magi [facility] Respiratory rate 2024-03-18 09:37:00 16 /min [facility] Body height 2024-03-18 09:37:00 170.2 cm [facility] Body weight 2024-03-18 09:37:00 88.451 kg [facility] BMI 2024-03-18 09:37:00 30.54 kg/m2 [facility] Oxygen saturation in Arterial blood by Pulse oximetry 2024-03-18 09:37:00 99 /min [place] [facility] Procedures Procedure Date / Time Performed Performing Clinicia n Source XR CHEST 2 VW 2025-03-03 00:36:42 Billy Rader [facility] BASIC METABOLIC PANEL (NA, K, CL, CO2, GLUCOSE, BUN, CREATININE, CA) 2025-03-02 23:41:00 Billy Rader [facility] CBC WITH DIFF 2025-03-02 23:41:00 Billy Rader [facility] N-TERMINAL PRO-BNP 2025-03-02 23:41:00 Billy Rader [facility] TROPONIN I 2025-03-02 23:41:00 Billy Rader [facility] Encounters Start Date/Time End Date/Time Encounter Type Admission Type Attending [facility] Care Facility Care Department Encounter ID Source 2023-04-30 10:00:00 Inpatient Fredis Asencio RAD [id number] [facility] 2025-03-08 02:37:00 2025-03-08 04:24:00 Emergency X Edwin Holliday [facility] [[email or web address] AT [facility] [id number] 350.1.13.10 4.2.7.2.686 [id number] [facility] 2025-03-06 14:39:00 2025-03-06 15:29:00 Emergency X [place] Wei [facility] [[email or web address]] AT [facility] [id number] 350.1.13.10 4.2.7.2.686 [id number] [facility] 2025-03-04 03:48:00 2025-03-04 05:23:00 Emergency X Laz Bernal [facility] AT [facility] 1.2.840.114 350.1.13.10 4.2.7.2.686 [id number] [facility] 2025-03-02 17:46:00 2025-03-02 21:11:00 Emergency X BILLY RADER, BILLY [facility] [[email or web address]] ERT [id number] [facility] 2025-02-27 06:14:00 2025-02-27 06:14:00 Outpatient Miguel Curry ANDI [id number] [facility] 2024-12-01 00:07:00 2024-12-01 01:10:00 Emergency X MIKHAIL PUGH PAMALA [facility] [[email or web address]] ERT [id number] [facility] 2024-11-29 14:30:00 2024-11-29 15:57:00 Emergency X Billy Rader [facility] AT [facility] 1.2.840.114 350.1.13.10 4.2.7.2.686 [id number] [id number] [facility] 2024-11-05 07:42:00 2024-11-05 09:37:00 Emergency EM Ross Adame ER [id number] [facility] 2024-06-13 06:16:00 2024-06-13 07:28:00 Emergency [place] Wei [facility] [[email or web address]] AT [facility] 1.2.840.114 350.1.13.10 4.2.7.2.686 [id number] [facility] 2024-03-18 04:48:00 2024-03-18 05:29:00 Emergency X EDWIN HOLLIDAY WAKILI [facility] ERT [id number] [facility] 2024-03-18 04:48:00 2024-03-18 05:29:00 Emergency Edwin Holliday [facility] [[email or web address] AT [facility] 1.2.840.114 350.1.13.10 4.2.7.2.686 [id number] [id number] [facility] 2022-07-07 09:32:00 2022-07-07 09:32:00 Outpatient Fredis AsencioWI RAD [id number] [facility] Results Test Description Test Time Test Comments Results Resul t Comments Source XR CHEST 2 VW 2025-02-20 2 00:52:07 EXAM:XR CHEST 2 VW HISTORY: 59 years-old Male; Indication for study: SOB, hx of asbestos COMPARISON: None TECHNIQUE: Frontal and lateral chest radiographs were obtained. FINDINGS: Lungs/Pleura: Adequate lung volume. The lungs are clear with no focalconsolidation. There is no pleural effusion or pneumothorax. Heart/Mediastinum: The cardiomediastinal silhouette is normal. Bones and soft tissues: No acute abnormality detected. [facility] [id number] 00:20:49* Test Item Value Reference Range Interpretation Comme nts TROPONIN I (test code = 1449312522) 0.004 ng/mL <=0.034 DEVAN (test code = DEVAN) Reference (Normal) Range (defined by the 99th percentile reference limit): <= 0.034 ng/mL Note: Cardiac troponin begins to rise 3-4 hours after the onset of ischemia. Repeat in 4-6 hours if the sample was drawn within 3-4 hours of the onset of the symptom and found normal. Diagnosis of myocardial injury is made with acute changes in cTn concentrations with at least one serial sample above the 99th percentile upper reference limit (URL), taken together with the patient's clinical presentation. Biotin has been reported to cause a negative bias, interpret results relative to patient's use of biotin. Lab Interpretation (test code = 95342-1) [facility] [id number] 00:18:07* Test Item Value Reference Range Interpretation Comme nts NT-proBNP (test code = 26474-9) 943 pg/mL <=125 H DEVAN (test code = DEVAN) Positive: Heart Failure Likely Lab Interpretation (test code = 69330-8) Abnormal [facility] METABOLIC PANEL (NA, K, CL, CO2, GLUCOSE, BUN, CREATININE, CA)2025-03-03 00:08:45* Test Item Value Reference Range Interpretation Comme nts NA (test code = 8674067609) 138 mmol/L 135-145 K (test code = 7409270306) 3.7 mmol/L 3.5-5.0 CL (test code = 5791466841) 110 mmol/L 98-108 H CO2 TOTAL (test code = 5349054347) 22 mmol/L 23-31 L AGAP (test code = 5655939787) 6 2-16 BUN (test code = 5158413156) 28 mg/dL 7-23 H GLUCOSE (test code = 5132151954) 102 mg/dL 70-110 CREATININE (test code = 2160-0) 0.95 mg/dL 0.60-1.25 CALCIUM (test code = 0038567544) 8.9 mg/dL 8.6-10.6 eGFR (test code = 28857-1) 92.2 mL/min/1.73m2 CKD-EPI eGFR (2020). Assuming creatinine has been stable day-to-day for at least three months, the eGFR indicates Category G1 (>= 90 mL/min/1.73 m2) Lab Interpretation (test code = 91716-4) Abnormal [facility] METABOLIC [id number] 14:55:00* Test Item Value Reference Range Interpretation Comme nts SODIUM (test code = NA) 140 mmol/L 136-145 N POTASSIUM (test code = K) 3.4 mmol/L 3.5-5.1 L CHLORIDE (test code = CL) 106 mmol/L 98-113 N CARBON DIOXIDE (test code = CO2) 27.0 mmol/L 21-32 N GLUCOSE (test code = GLU) 118 mg/dL 65-107 H BLOOD UREA NITROGEN (test code = BUN) 12 mg/dL 7-18 N GLOMERULAR FILTRATION RATE (test code = GFR) 102 The Glomerular Filtration Rate is a calculated parameterbased on serum Creatinine, patient age and sex. GFR valuesless than 60 mL/min/1.73 square meters are indicative ofChronic Kidney Disease. Values less than 15 mL/min/1.73square meters indicate Kidney failure. The calculation forGFR is based on the CKD-EPI (2020) calculation. This formulais race indifferent and is the recommended formula for GFRby the National Kidney Foundation for Adults.The GFR will not calculate if the sex is unknown or if thepatient's age is <18 years. CREATININE (test code = CREAT) 0.8 mg/dL 0.6-1.0 N CALCIUM (test code = CA) 9.6 mg/dL 7.6-10.9 N PROTHROMBIN [id number] 14:52:00* Test Item Value Reference Range Interpretation Comments PROTHROMBIN TIME PATIENT (test code = PTP) 10.5 SECONDS 9.4-12.5 N INTERNATIONAL NORMAL RATIO (test code = INR) 0.91 0.8-1.2 N Recommended Ther apeutic PT Ratios For Oral AnticoagualantTherapy. CONDITION INT'L NORMALIZED PT R--------- Prophylaxis of venous thrombosis 2.0 - 3.0in high risk medical or surgicalpatients, treatment of venousthrombosis, prevention of embolism. Prevention of recurrent embolism, 3.0 - 4.5or treatment of patients with mechanicalprosthetic heart valves. THROMBOPLASTIN TIME [id number] 14:52:00* Test Item Value Reference Range Interpretation Comme nts THROMBOPLASTIN TIME PARTIAL (test code = PTT) 27.6 SECONDS 25.9-37.7 N CBC W/AUTO [id number] 14:18:00* Test Item Value Reference Range Interpretation Comme nts WHITE BLOOD CELL (test code = WBC) 11.4 K/mm3 4.8-10.8 H RED BLOOD CELL (test code = RBC) 4.06 M/mm3 4.2-5.4 L HEMOGLOBIN (test code = HGB) 12.7 gm/DL 13.5-17.5 L HEMATOCRIT (test code = HCT) 37.8 % 37.1-51.5 N MEAN CELL VOLUME (test code = MCV) 93.1 fL 81-99 N MEAN CELL HGB (test code = MCH) 31.3 pg 27-31 H MEAN CELL HGB CONCETRATION ( test code = MCHC) 33.6 gm/dL 33-37 N RED CELL DISTRIBUTION WIDTH (test code = RDW) 13.5 % 11.5-14.5 N PLATELET COUNT (test code = PLT) 216 X10(3) 130-400 N MEAN PLATELET VOLUME (test c ode = MPV) 10.0 fL 9.4-12.4 N NEUTROPHIL % (test code = NT%) 85.5 % 51.5-79.7 H IMMATURE GRANULOCYTE % (test code = IG%) 0.600 % 0.108-0.322 H LYMPHOCYTE % (test code = LY%) 8.2 % 14-40 L MONOCYTE % (test code = MO%) 5.6 % 4.0-10.2 N EOSINOPHIL % (test code = EO%) 0.0 % 0-4.1 N BASOPHIL % (test code = BA%) 0.1 % 0.1-0.7 N NUCLEATED RBC % (test code = NRBC%) 0.0 % 0-0 N NEUTROPHIL # (test code = NT#) 9.7 K/mm3 2.5-8.6 H IMMATURE GRANULOCYTE # (test code = IG#) 0.070 K/mm3 0.0052-0.0224 H LYMPHOCYTE # (test code = LY#) 0.9 K/mm3 1.1-3.6 L MONOCYTE # (test code = MO#) 0.6 K/mm3 0.3-0.9 N EOSINOPHIL # (test code = EO#) 0.00 # 0.0-0.4 N BASOPHIL # (test code = BA#) 0.01 K/mm3 0.0-0.2 N NUCLEATED RBC # (test code = NRBC#) 0.00 K/mm3 0.00-0.20 N - RETROPERITONEAL [id number] 11:20:00 [facility] 1965 Sex: M Saxe: MARY St: REG -- Name: HI PEREZ [facility] : 1965 Age/S: 56/M [address] Unit #: [id number] Loc: [place], [place] [address] Phys: Fredis Hilliard MD Acct: [id number] DisDate: Status: REG CLI PHONE #: [phone] Exam Date: 07/07/2022 1014 FAX #: [phone] Reason: E SSENTIAL PRIMARY HTN EXAMS: CPT CODE: [id number] US RETROPERITONEAL COMPLETE 88249 Retroperitoneal ultrasound with duplex imaging. Location: H19 History: Essential primary HTN. Comparison: 06/30/2016 Technique and Findings: Grayscale, spectral, color Doppler ultrasound of the kidneys and bladder region were performed. The right kidney measures 9.4 x 5.2 x 4.9 cm. The left kidney measures 9.1 x 5.4x 4.3 cm. There is no hydronephrosis. Corticomedullary differentiation is normal. There are no focal lesions or calculi seen. Velocities are in cm/sec. Right proximal renal artery: 43.0. Right distalrenal artery: Not clearly visualized Right mid renal artery: 148.3 Left proximal renal artery: 63.0Left distal renal artery: 41.0. Aorta: 114.8 Right renal artery to aorta ratio: 1.3 Left renal artery to aorta ratio: 0.7 The visualized renal veins are patent. The bladder appears smooth-walled. Impression: No sonographic evidence for significant hematoma stenosis of the renal arteries. Electron ically Signed by CECELIA CHEW MD on 07/07/2022 at 1120 Reported and signed by: CECELIA CHEW MD PAGE 1 Signed Report (CONTINUED) Saxe: [facility] St: REG Name: HI PEREZ [facility] : 1965 Age/S: 56/M [address] [facility] Unit #: [id number] Loc: [place], [place] [address] Phys: Fredis Hilliard MD Acct: [id number] Dis Date: Status: REG CLI PHONE #: [phone] Exam Date: 07/07/2022 1014 FAX #: [phone] Reason: ESSENTIAL PRIMARY HTN EXAMS: CPT CODE: [id number] RETROPERITONEAL COMPLETE 34404 (Continued) Facility ACR Accreditation for Ultrasound - July 2011 CC: Fredis Montemayor MD Technologist: GAGANDEEP PASCUAL, RVS Transcribed Date/Time/By: 07/07/2022 (1120) : By:[email or web address] Orig Print D/T: S: 07/07/2022 (1124) PAGE 2 Signed Report- DUP AO/IVC/IV/BPG LTD 2022-07-07 11:20:00 [facility] 1965 Sex: M Saxe: [facility] St: REG -- Name: HI PEREZ [facility] : 1965 Age/S: 56/M [address] Unit #: [id number] Loc: [place], [place] [address] Phys: Fredis Hilliard MD Acct: [id number] DisDate: Status: REG CLI PHONE #: [phone] Exam Date: 07/07/2022 1014 FAX #: [phone] Reason: ESSENTIAL PRIMARY HTN EXAMS: CPT CODE: [id number] DUP AO/IVC/IV/BPG LTD 85479 Retroperitoneal ultrasound with duplex imaging. Location: H19 History: Essential primary HTN. Comparison: 06/30/2016 Technique and Findings: Grayscale, spectral, color Doppler ultrasound of the kidneys and bladder region were performed. The right kidney measures 9.4 x 5.2 x 4.9 cm. The left kidney measures 9.1 x 5.4 x 4.3cm. There is no hydronephrosis. Corticomedullary differentiation is normal. There are no focal lesions or calculi seen. Velocities are in cm/sec. Right proximal renal artery: 43.0. Right distal renalartery: Not clearly visualized Right mid renal artery: 148.3 Left proximal renal artery: 63.0 Left distal renal artery: 41.0. Aorta: 114.8 Right renal artery to aorta ratio: 1.3 Left renal artery toaorta ratio: 0.7 The visualized renal veins are patent. The bladder appears smooth-walled. Impression: No sonographic evidence for significant hematoma stenosis of the renal arteries. at 1120 Reported and signed by: CECELIA CHEW MD PAGE 1 Signed Report (CONTINUED) Saxe: [facility] St: REG Name: HI PEREZ [facility] : 1965 Age/S: 56/M [address] Unit #: [id number] Loc: .[place], [place] [address] Phys: Fredis Hilliard MD Acct: [id number] Dis Date: Status: REG CLI PHONE #: [phone] Exam Date: 07/07/2022 1014 FAX #: [phone] Reason: ESSENTIAL PRIMARY HTN EXAMS: CPT CODE: [id number] DUP AO/IVC/IV/BPG LTD 49657 (Continued) Facility ACR Accreditation for Ultrasound - July 2011 CC: Fredis Hilliard MD Technologist: GAGANDEEP PASCUAL RVS Transcribed Date/Time/By: 07/07/2022 (1120) : By: [email or web address] Print D/T: S: 07/07/2022 (1124) PAGE 2 Signed Report- VEIN REFLUX [id number] 11:48:00 Saxe: [facility] St: PRE Name: HI PEREZ [facility] : 1965 Age/S: 53/M [address] Unit #: [id number] Loc: .[place], [place] [address] Phys: David James MD Acct: [id number] Dis Date: Status: PRE CLI PHONE #: [phone] Exam Date: 05/04/2019 1110 FAX #: [phone] Reason: VENOUS INSUFFICIENSCY EXAMS: CPT CODE: [id number] VEIN REFLUX STUDY 45810 BILATERAL LOWER EXTREMITIES VENOUS DUPLEX INCLUDING ADDITIONAL EVALUATION FOR VENOUS INSUFFICIENCY INDICATION: Venousinsufficiency. COMPARISON: No prior imaging. TECHNIQUE: Real-time grayscale, color and pulsed Doppler evaluation. FINDINGS: The bilateral common femoral, superficial femoral, and popliteal veins demon strate normal compressibility, normal phasic venous flow, and [...] result of the spectral Doppler evaluation are: Greatersaphenous vein - Upper thigh: 6.7 mm, no significant reflux - Mid thigh: 3.9 mm, no significant reflux PAGE 1 Signed Report (CONTINUED) Saxe: MARY St: PRE Name: HI PEREZ [facility] : 1965 Age/S: 53/M [address] Unit #: [id number] Loc: [place], [place] [address] Phys: David James MD Acct: [id number] Dis Date: Status: PRE CLI PHONE #: [phone] Exam Date: 05/04/2019 1110 FAX #: [phone] Reason: VENOUS INSUFFICIENSCY EXAMS: CPT CODE: [id number] VEIN REFLUX STUDY 42025 (Continued) - Distal thigh: 3.1 mm, no [...] knee there is a popliteal cyst (Staton's cyst)measuring 3.6 cm in length by 1.0 cm [...] ADALBERTO MURPHY RDMS Transcribed Date/Time/By: 05/09/2019 (1148) :By: [email or web address] Orig Print D/T: S: 05/09/2019 (5378) PAGE 2 Signed Report- MRI L-SPINE W/O [id number] 10:18:00FAX: Gurjit Quinn [phone] Camps: MARY St: REG FAX: Jordan Ocampo MD [phone] -- Name: HI PEREZ [facility] : 1965 Age/S: 53/M [address] [facility] Unit #: [id number] Loc: [place], [place] [address] Phys: Jordan Novoa MD Acct: [id number] Dis Date: Status: REG SDC PHONE #: [phone] Exam Date: 12/28/2018 0934 FAX #: [phone] Reason: LUMBAR STENOSIS EXAMS: CPT CODE: [id number] MRI L-SPINE W/O CONT 92396 EXAM: MRI LUMBAR SPINE WITHOUT CONTRAST INDICATION: [...] 1 Signed Report (CONTINUED) FAX: Gurjit Quinn [phone] Camps: MARY St: REG FAX: Jordan Ocampo MD [phone] Name: HI PEREZ [facility] : 1965 Age/S: 53/M [address] Unit #:[id number] Loc: [place], [place] [address] Phys: Jordan Novoa MD Acct: [id number] Dis Date: Status: REG [facility] PHONE #: [phone] Exam Date: 12/28/2018933 FAX #: [phone] Reason: LUMBAR STENOSIS EXAMS: CPT CODE: [id number] MRI L-SPINE W/O CONT 23219 (Continued) 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 Minimal retrolisthesis of L3 over L4 with mildspinal canal stenosis. Moderate right neuroforaminal stenosis at L3-L4. Postsurgical changes at L4-S1. LOCATION: A 1 at 1018 Reported and signed by: SHEREE HALE M.D. CC: Gurjit Cline MD; Jordan Novoa MD Technologist: Frdeis Talley RT(R)(CT)(MRI)ARRT Transcribed Date/Time/By: 12/28/2018 (1018) :[email or web address] Orig Print D/T: S: 12/28/2018 (8621) PAGE 2 Signed ReportBASI METABOLIC [id number] 11:07:00* Test Item Value Reference Range Interpretation Comme nts SODIUM (test code = NA) 141 mmol/L 136-145 N POTASSIUM (test code = K) 4.0 mmol/L 3.5-5.1 N CHLORIDE (test code = CL) 108 mmol/L 98-113 N CARBON DIOXIDE (test code = CO2) 29 mmol/L 21-32 N GLUCOSE (test code = GLU) 99 mg/dL 65-99 N BLOOD UREA NITROGEN (test code = BUN) 11 mg/dL 7-18 N GLOMERULAR FILTRATION RATE (test code = GFR) 107 Reporting units: ml/min/1.73m\\S\\2 (Modified MDRD Formula)If age < 18 years, GFR is not applicable. KD/DOQI Clinical Practice Guidelines: Stage 1: Kidney damage w/normal or increased GFR >90Stage 2: Kidney damage w/mild decrease in GFR 60 - 89Stage 3: Moderate decrease in GFR 30 - 59Stage 4: Severe decrease in GFR 15 - 29Stage 5: Kidney failure < 15 (or dialysis) CREATININE (test code = CREAT) 0.8 mg/dL 0.6-1.0 N CALCIUM (test code = CA) 9.2 mg/dL 7.8-10.9 N CBC W/O [id number] 10:50:00* Test Item Value Reference Range Interpretation [...] 9.4-12.4 N Notes Date/Time Note Provider Source 2025-03-08 02:32:59 C/o chronic back pain and chronic bilateral knee pain. Takes oxycodone, gabapentin, methylprednisolone, flexeril Estelita Mark RN [facility] 2025-03-06 14:35:00 Hi Perez is a 59 year old male arrived to ED via personal means with CC of lower back and genaro knee pain since 11am. Hx of arthritis, taking oxycodone but not helping today. Seen by ortho today but unable to do injections till insurance approval. Has a PCP follow up on Thursday scheduled. Debi Martini RN [facility] 2025-03-04 05:23:02 Pt given printed and verbal discharge instructions regarding pain, encouraged hydration. Pt verbalized understanding of instructions, pt awake alert oriented, resp reg unlabored, skin w/d, color appropriate for race, moves all ext well,pt encouraged to follow up with pcp and or specialist. Advised to seek medical attention for new/prolonged/worsening of symptoms. No adverse reaction to meds given in ER noted upon discharge Awake, alert oriented, resp reg unlabored, skin w/d, pt leaving amb with steady gait, in no apparent distress, Callie Carver RN [facility] 2025-03-04 04:37:26 SAFE-T Protocol with C-SSRS ([place] Risk and Protective Factors) - Recent Step 1: Identify Risk Factors 1) Wish to be - Have you wished you were or wished you could go to sleep and not wake up? (P) No 2) Current suicidal thoughts - Have you actually had any thoughts of killing yourself? (P) No 3) Suicidal thoughts w/method - Have you been thinking about how you might do this? Not applicable 4) Suicidal intent without Specific Plan- Have you had these thoughts and had some intention of acting on them? Not applicable 5) Intent with Plan- Have you started to work out or worked out the details of how to kill yourself? Do you intend to carry out this plan? Not applicable 6) C-SSRS Suicidal Behavior - Have you ever done anything, started to do anything, or prepared to do anything to end your life? (P) No Suggested risk level: (P) Not calculated Activating Events: (P) Recent losses or other significant negative event(s) (legal, financial, relationship, etc) Treatment History: (P) Previous psychiatric diagnosis and treatments, Hopeless or dissatisfied with treatment Clinical Status: (P) Major depressive episode, Chronic physical pain or other acute medical problem (e.g. 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 Not applicable Duration - When you have the thoughts, how long do they last? Not applicable Controllability - Could/can you stop thinking about killing yourself or wanting to if you want to? Not applicable Deterrents - Are there things, anyone or anything (e.g. family, tenriism, pain of ), that stopped you from wanting to or acting on thoughts of suicide? Not applicable Reasons for ideation - What sort of reasons did you have for wanting to or kill yourself? Was it to end pain, stop the way you are feeling, or to get attention, revenge or reaction from others? Or both? Not applicable Stratification: High Suicide Risk Moderate Suicide Risk Low Suicide Risk ?? Suicidal ideation with intent or intent with plan in past month (C-SSRS Suicidal Ideation #4 or #5) Or ?? Suicidal behavior within past 3 months (C-SSRS Suicidal Behavior) ?? Suicidal ideation with method, WITHOUT plan, intent or behavior in past month (C-SSRS Suicidal Ideation #3) Or ?? Suicidal behavior more than 3 months ago (C-SSRS Suicidal Behavior Lifetime) Or ?? Multiple risk factors and few protective factors ?? Wish to or Suicidal Ideation WITHOUT method, intent, plan or behavior (C-SSRS Suicidal Ideation #1 or #2) Or ?? Modifiable risk factors and strong protective factors Or ? No reported history of Suicidal Ideation or Behavior Location / Risk: Outpatient / Moderate: Suicidal ideation with intent and a plan in the past month but has protective factors, OR Suicidal behavior more than 3 months ago OR suicidal ideation with intent, no plan but has multiple risk factors and few protective factors. a. Directly address suicide risk with patient and family. b. Develop safety plan (includes prevention strategies) and include counseling about restriction and removal of firearms, medications, means to hang oneself, large sharp objects, etc. See safety plan. c. Consider referral to Emergency Room as necessary if unable to develop a safety plan. d. Referral to outpatient behavioral health resource within 1 month. e. Follow-up with Psychiatry provider in 1 week or less. [facility] EMERGENCY PHYSICIAN STAFF [facility] 2025-03-04 03:29:24 Arrives to ED ambulatory. C/O chronic lower back pain due to L2-L3 back injury. Pt also states he has been going through depression lately. States "I just don't want to live anymore". Pt reports he has been having on and off problems with his . Pt is tearful during triage. Pt responded No to having suicidal ideations. Pt denies having a plan to hurt himself. Keiry Lanodn RN [facility] 2025-03-02 21:10:02 Pt given printed and verbal discharge instructions regarding acute on chronic back pain, SOB and chronic bilateral knee pain. Prescription x1 sent to pharmacy Pt verbalized understanding of instructions, pt awake alert oriented, resp reg unlabored, skin w/d, color appropriate for race, moves all ext well,pt encouraged to follow up with pcp. Advised to seek medical attention for new/prolonged/worsening of symptoms. No adverse reaction to meds given in ER noted upon discharge PIV d'cd, dressing to site, catheter in tact. Awake, alert oriented, resp reg unlabored, skin w/d, pt leaving ambulatory without assist, in no apparent distress, Tanya Edwards RN [facility] 2025-03-02 17:44:44 Patient reports chronic back pain and right knee pain that is intolerable, as well as shortness of breath. Patient states that he has asbestos exposure. Denies chest pain, fevers. Presents vitally stable. HX: Von Willebrand's, asbestos exposure. Myesha Truong RN [facility] 2025-02-24 13:23:00 [id number] [facility] [address] [place], [place], [address] PATIENT NAME: HI PEREZ JR ADMIT DATE: ACCOUNT NO: [id number] ROOM NO: AGE: 59 REPORT TYPE: ELECTROCARDIOGRAM SEX: M ADMITTING PHYSICIAN: ATTENDING PHYSICIAN:Miguel Calvin MD Order: [id number] Test Reason : PRE OP Test Date/Time Stamp: ThuFeb 24 2025 13:23:52 Blood Pressure : */* mmHG Vent. Rate : 54 BPM Atrial Rate : 54 BPM P-R Int : 128 ms QRS Dur : 82 ms QT Int : 434 ms P-R-T Axes : 49 28 53 degrees QTcB Int : 411 ms Sinus bradycardia Otherwise normal ECG Confirmed by MANDO MONSALVE MD ([id number]) on 02/28/2025 10:39:38 AM Referred By: Miguel Calvin Confirmed by: MANDO MONSALVE MD at 1039 PATIENT NAME: HI PEREZ JR [facility] 2024-12-01 01:08:09 Pt reported to ED registration pt wanted to leave. ERP notified. Augustin Boothe RN [facility] 2024-12-01 00:00:23 Pt feels like he is going through withdrawals, takes oxycodone for chronic pain but hasn't had any for 6 days. C/o tossing and turning, unable to relax, feeling jittery States he ran out faster than he should have because he has been taking extra Estelita Mark RN [facility] 2024-11-29 15:54:05 Patient is awake and alert, oriented x4, speech is clear and appropriate, ambulatory with a steady gait. Advised to seek medical attention for new/prolonged/worsening of symptoms. Respirations even and unlabored, no distress. Vielka Reyes RN [facility] 2024-11-29 14:27:44 Pt arrived ambulatory without assist. Pt c/o chronic "arthritis" pain that starts in knees and then travels up his back. Tanya Edwards RN [facility] 2024-11-05 08:06:00 [facility] EMERGENCY PROVIDER REPORT REPORT#:[id number] REPORT STATUS: Signed DATE:11/05/24 TIME: 805 PATIENT: HI PEREZ JR UNIT #: [id number] ROOM/BED: : 65 AGE: 58 SEX: M PCP PHYS: Fredis Hilliard MD SERVICE AUTHOR: Meche Campbell BILINGUAL PATIENT SUPPORT CASEWORKER REP SRV REP SRV TM: [id number] * [...] Patient Type New patient Initial Greet Date/Time 11/05/24 0744 Presentation Chief Complaint Pain, back Sudden in [...] 06/07/14) Home Medications Reported Medications Hydrocodone/Acetaminophen (HYDROcodone/APAP 10/325) 1 TAB PO QID PRN PRN PAIN [...] Pulse Ox 90 11/05 745 B/P 133/84 11/05 745 B/P Mean 100.7 05/17 0746 Temp 36.7 11/05 0746 Pulse 82 11/05 0746 O2 Delivery Room air 11/05 0854 Resp 14 11/05 0854 Last Documented: Result Date Time Pulse Ox 99 11/05 853 B/P 124/67 11/05 0854 O2 Delivery Room [...] Status Admin Acetaminophen/ 1 UDTAB X1ED STA 05/17 0805 DC 11/05 Codeine Phosphate PO 11/05 Ketorolac 60 MG X1ED STA 11/05 0805 DC 11/05 Tromethamine IM 11/05 805 08 Patient Discharge Departure Vital Signs/Condition Vital Signs First Documented: Result Date Time Pulse Ox 90 11/05 0646 B/P 133/84 11/05 0746 B/P Mean 100.7 11/05 0746 Temp 36.7 11/05 0746 Pulse 82 11/05 0746 O2 Delivery Room air 11/05 0854 Resp 14 11/05 0854 Last Documented: Result Date Time Pulse Ox 99 11/05 0854 B/P 124/67 11/05 0854 O2 Delivery Room air 11/05 853 Temp 36.8 11/05 0854 Pulse 77 11/05 0854 Resp 11/05 0854 B/P Mean 100.7 11/05 0746 [...] Saw Pt Alone I have reviewed the PA/BILINGUAL PATIENT SUPPORT CASEWORKER's note and plan of care. I was available for consultation as needed at all times during the patient's visit in the emergency department. I agree with the clinical impression, plan and disposition. at 0701 at 0724 RPT #:[id number] END OF REPORT [facility] 2024-06-13 07:27:57 PT D/C home. GCS15, VS stable, no ataxia noted. Given one prescription (changed to [facility] per pt request) and D/C paperwork. Pt ambulatroy at time of discharge. Pt educated on diagnosis, med usage, follow up care, s/s worsening condition. Pt verbalized understanding. TRIC MOTOR MECHANIC Edda Mcgee RN [facility] 2024-06-13 06:06:23 Pt ambulatory to triage for [...] of lumbar fusion and laminectomy and arthritis TRIC MOTOR MECHANIC Calderon Kennedy RN [facility] 2024-03-18 05:13:37 Awake, alert oriented X4, respiratory [...] noted upon discharge Pt ambulated to the [facility] with steady gait Leslie Hoover RN [facility] 2024-03-18 04:38:22 CC: Pt was prescribed oxycodone for lumbar fusion pain by . Pt states the PCP refilled his prescription, and he went to [facility] but pharmacist refused refill. HEB [...] all ext without difficulty, amb without assistance [facility]
[2025-03-09] MEDS ORDERED: KETOROLAC 30 MG/ML INJ ONE (16:56)
[2025-03-09] MEDS ORDERED: MORPHINE 4 MG/ML SYR ONE (16:56)
--- NOTE | 2025-03-09 17:03 | ER ---
Nurse's Notes [facility] Name: Jim Maldonado Jr Age: 59 yrs Sex: Male : 1965 Arrival Date: 03/09/2025 Time: 15:26 Bed 7 Private MD: Diagnosis: Low back pain-chronic;Pain in knee-bilateral, chronic Presentation: 03/09 15:32 Chief complaint: Patient states: HE IS STILL HAVING PAIN IN HIS LOWER BACK FROM L3-L4, dd2 AND ADILENE KNEE PAIN FROM HIS CHRONIC ARTHRITIS. Coronavirus screen: At this time, the client does not indicate any symptoms associated with coronavirus-19. Ebola Screen: No symptoms or risks identified at this time. Initial Sepsis Screen: Does the patient meet any 2 criteria? No. Patient's initial sepsis screen is negative. Does the patient have a suspected source of infection? No. Patient's initial sepsis screen is negative. Risk Assessment: Do you want to hurt yourself or someone else? Patient reports no desire to harm self or others. Onset of symptoms is unknown. 15:32 Method Of Arrival: Ambulatory dd2 15:32 Acuity: MARCEL 4 dd2 Triage Assessment: 15:36 General: Appears in no apparent distress. uncomfortable, Behavior is calm, cooperative, dd2 appropriate for age. Pain: Complains of pain in lumbar area, right knee and left knee. Musculoskeletal: Circulation, motion, and sensation intact. Range of motion: intact in all extremities. Historical: - Allergies: 15:36 PENICILLINS; dd2 - PMHx: 15:36 chronic back pain; gastritis; Hypertensive disorder; Rashi Willebrand Disease; Arthritis; dd2 - PSHx: 15:36 laminectomy; Spinal Fusion; dd2 - Immunization history:: Adult Immunizations up to date. - Infectious Disease History:: Denies. - Social history:: Smoking status: Patient denies any tobacco usage or history of. Screenin:13 [facility] ED Fall Risk Assessment (Adult) History of falling in the last 3 months, af3 including since admission No falls in past 3 months (0 pts) Confusion or Disorientation No (0 pts) Intoxicated or Sedated No (0 pts) Impaired Gait No (0 pts) Mobility Assist Device Used No (0 pt) Altered Elimination No (0 pt) Score/Fall Risk Level 0 - 2 = Low Risk Oriented to surroundings, Maintained a safe environment, Educated pt \T\ family on fall prevention, incl call for assistance when getting out of bed. Abuse screen: Denies threats or abuse. Denies injuries from another. Nutritional screening: No deficits noted. Tuberculosis screening: No symptoms or risk factors identified. Assessment: 17:12 General: Appears in no apparent distress. uncomfortable, well groomed, well developed, af3 Behavior is calm, cooperative, appropriate for age. Pain: Complains of pain in low back area. Neuro: Level of Consciousness is awake, alert, obeys commands, Oriented to person, place, time, situation, Appropriate for age. Cardiovascular: Patient's skin is warm and dry. Respiratory: Airway is patent Respiratory effort is even, unlabored, Respiratory pattern is regular, symmetrical. 17:42 Reassessment: No changes from previously documented assessment. Patient and/or family ll1 updated on plan of care and expected duration. Pain level reassessed. Patient is alert, oriented x 3, equal unlabored respirations, skin warm/dry/pink. Patient states feeling better. Vital Signs: 15:32 BP 156 / 103; Pulse 93; Resp 16; Temp 98.2; Pulse Ox 100% on R/A; Weight 81.65 kg; dd2 Height 5 ft. 7 in. ; Pain 10/10; 17:43 BP 144 / 102; Pulse 91; Resp 18; Pulse Ox 100% ; Pain 5/10; ll1 17:43 BP 142 / 102; Pulse 85; Resp 18; Pulse Ox 99% on R/A; af3 15:32 Body Mass Index 28.19 (81.65 kg, 170.18 cm) dd2 15:32 Pain Scale: Adult dd2 17:43 Pain Scale: Adult ll1 ED Course: 15:28 Patient arrived in ED. im 15:30 Zachariah Cortes PA-C is PHCP. cp 15:31 Kathleen Chang MD is Attending Physician. cp 15:36 Triage completed. dd2 15:36 Arm band placed on right wrist. dd2 16:47 Kathi Eric, ELIAS is Primary Nurse. ll1 17:13 Patient has correct armband on for positive identification. Bed in low position. Call af3 light in reach. 17:13 No provider procedures requiring assistance completed. af3 17:14 Provided Education on: call light use . af3 17:43 Patient did not have IV access during this emergency room visit. ll1 Administered Medications: 17:11 Drug: Dexamethasone IM 10 mg IM once Route: IM; Site: right deltoid; af3 17:42 Follow up: Response: No adverse reaction ll1 17:12 Drug: morphine IM 4 mg IM once Route: IM; Site: left deltoid; af3 17:42 Follow up: Response: No adverse reaction; Pain is decreased; RASS: Alert and Calm (0) 1 17:12 Drug: Ketorolac IM 30 mg IM once Route: IM; Site: left deltoid; af3 17:42 Follow up: Response: No adverse reaction ll1 17:26 Drug: Baclofen PO 10 mg PO once Route: PO; af3 17:42 Follow up: Response: No adverse reaction 1 Medication: 17:13 VIS not applicable for this client. af3 Outcome: 17:02 Discharge ordered by . ubaldo 17:43 Discharged to home ambulatory, 1 17:43 Condition: stable 17:43 Discharge instructions given to patient, Instructed on discharge instructions, follow up and referral plans. Demonstrated understanding of instructions, follow-up care, 17:43 Patient left the ED. ll1 Signatures: Zachariah Cortes PA-C PA-C cp Lewis, Lynsay, RN RN ll1 Dianna Moreau Ashley, RN RN af3 ALEX WINTER RN RN dd2
--- NOTE | 2025-03-09 17:03 | EDPHYS ---
Physician Documentation [facility] Name: Jim Maldonado Jr Age: 59 yrs Sex: Male : 1965 Arrival Date: 03/09/2025 Time: 15:26 Bed 7 Private MD: ED Physician Kathleen Chang HPI: 03/09 15:45 This 59 yrs old Male presents to ER via Ambulatory with complaints of Low Back cp Pain, Knee Pain. 15:45 The patient presents with pain that is chronic, with no known mechanism of injury. cp 15:45 The symptoms are located in the low back. Onset: The symptoms/episode began/occurred cp chronically. Associated signs and symptoms: Pertinent positives: chronic bilateral knee pain, Pertinent negatives: abdominal pain, chest pain. Severity of symptoms: in the emergency department the symptoms are unchanged, despite home interventions. 15:45 Patient reports prescribed pain medications of oxycodone not controlling pain and has cp appt tomorrow with pain management. Historical: - Allergies: 15:36 PENICILLINS; dd2 - PMHx: 15:36 chronic back pain; gastritis; Hypertensive disorder; Rashi Willebrand Disease; Arthritis; dd2 - PSHx: 15:36 laminectomy; Spinal Fusion; dd2 - Immunization history:: Adult Immunizations up to date. - Infectious Disease History:: Denies. - Social history:: Smoking status: Patient denies any tobacco usage or history of. ROS: 15:50 Constitutional: Negative for body aches, chills, fever, poor PO intake, cp 15:50 Eyes: Negative for injury, pain, redness, and discharge, cp 15:50 Neck: Negative for pain with movement, pain at rest, 15:50 Cardiovascular: Negative for chest pain, palpitations, 15:50 Respiratory: Negative for cough, shortness of breath, wheezing, 15:50 Abdomen/GI: Negative for abdominal pain, vomiting, diarrhea, constipation, 15:50 Back: Positive for pain at rest, pain with movement, of the low back area, 15:50 MS/extremity: Positive for pain, of the right knee and left knee, 15:50 All other systems are negative, Exam: 15:55 Constitutional: The patient appears in no acute distress, alert, awake, cp non-diaphoretic, non-toxic, well developed, well nourished, uncomfortable, 15:55 Head/Face: Normocephalic, atraumatic. cp 15:55 Eyes: Periorbital structures: appear normal, Conjunctiva: normal, no exudate, no injection, Sclera: no appreciated abnormality, Lids and lashes: appear normal, bilaterally, 15:55 ENT: External ear(s): are unremarkable, Nose: is normal, Mouth: Lips: moist, Oral mucosa: moist, Posterior pharynx: Airway: no evidence of obstruction, patent, 15:55 Neck: ROM/movement: is normal, is supple, without pain, no range of motions limitations, 15:55 Chest/axilla: Inspection: normal, 15:55 Cardiovascular: Rate: normal, 15:55 Respiratory: the patient does not display signs of respiratory distress, Respirations: normal, no use of accessory muscles, no retractions, labored breathing, is not present, Breath sounds: are clear throughout, no decreased breath sounds, 15:55 Abdomen/GI: Inspection: abdomen appears normal, Palpation: abdomen is soft and non-tender, in all quadrants, 15:55 Back: pain, that is moderate, ROM is painful, with all movement, 15:55 Musculoskeletal/extremity: Extremities: grossly normal except: noted in the right knee and left knee: pain, tenderness, There is no evidence of decreased ROM, deformity, swelling, 15:55 Neuro: Orientation: to person, place \T\ time. Mentation: is normal, Motor: moves all fours, no focal deficits, Sensation: no obvious gross deficits, Gait: is steady, Deep tendon reflexes are 2+ (normal) in the right patellar, right Achilles, left patellar and left Achilles, Vital Signs: 15:32 BP 156 / 103; Pulse 93; Resp 16; Temp 98.2; Pulse Ox 100% on R/A; Weight 81.65 kg; dd2 Height 5 ft. 7 in. ; Pain 10/10; 17:43 BP 144 / 102; Pulse 91; Resp 18; Pulse Ox 100% ; Pain 5/10; ll1 17:43 BP 142 / 102; Pulse 85; Resp 18; Pulse Ox 99% on R/A; af3 15:32 Body Mass Index 28.19 (81.65 kg, 170.18 cm) dd2 15:32 Pain Scale: Adult dd2 17:43 Pain Scale: Adult ll1 MDM: 16:00 Differential diagnosis: sciatica, Herniated disc drug seeking behavior, exacerbation cp chronic pain. 17:02 Medical Screening Exam initiated cp 17:02 Data reviewed: vital signs, nurses notes, and as a result, I will discharge patient. cp 17:02 I considered the following discharge prescriptions or medication management in the cp emergency department Medications were administered in the Emergency Department. See MAR. Care significantly affected by the following chronic conditions: Hypertension. Counseling: I had a detailed discussion with the patient and/or guardian regarding the historical points, exam findings, and any diagnostic results supporting the discharge/admit diagnosis, the need for outpatient follow up, for definitive care, a sign painter helper, to return to the emergency department if symptoms worsen or persist or if there are any questions or concerns that arise at home. Response to treatment: the patient's symptoms have mildly improved after treatment, and as a result, I will discharge patient. Administered Medications: 17:11 Drug: Dexamethasone IM 10 mg IM once Route: IM; Site: right deltoid; af3 17:42 Follow up: Response: No adverse reaction ll1 17:12 Drug: morphine IM 4 mg IM once Route: IM; Site: left deltoid; af3 17:42 Follow up: Response: No adverse reaction; Pain is decreased; RASS: Alert and Calm (0) ll1 17:12 Drug: Ketorolac IM 30 mg IM once Route: IM; Site: left deltoid; af3 17:42 Follow up: Response: No adverse reaction ll1 17:26 Drug: Baclofen PO 10 mg PO once Route: PO; af3 17:42 Follow up: Response: No adverse reaction ll1 Disposition Summary: 03/09/25 17:02 Discharge Ordered Notes: Location: Home cp Problem: chronic cp Symptoms: have improved cp Condition: Stable cp Diagnosis - Low back pain - chronic cp - Pain in knee - bilateral, chronic cp Followup: cp - With: Private Physician - When: 1 - 2 days - Reason: Recheck today's complaints Discharge Instructions: - Discharge Summary Sheet cp - Chronic Back Pain cp - Chronic Pain, Adult cp - Back Exercises cp - Exercises for Chronic Knee Pain cp Forms: - Medication Reconciliation Form cp - Antibiotic Education cp - Prescription Opioid Use cp - Patient Portal Instructions cp - Leadership Thank You Letter cp Signatures: Zachariah Cortes PA-C PA-C cp Fry, Ashley, RN RN af3 ALEX WINTER, RN RN dd2 Ayden Rojas RN ll1
[2025-03-09] MEDS ORDERED: BACLOFEN 10 MG TAB PO ONE (17:13)
[2025-03-09 18:08] VITALS: TEMP 98.2
[2025-03-09 18:10] VITALS: BP 142/102; O2SAT 99
== END 2025-03-09 17:43 | disposition home or self-care (01) ==
LOC: ER 15:26
DX: M54.50 Low back pain, unspecified (principal); M25.562 Pain in left knee; M25.561 Pain in right knee
CPT/HCPCS: 96372; 99284; J1100

== ENCOUNTER 2025-03-25 13:08 | Emergency (ER) | payer OTHER ==
--- OUTSIDE RECORDS SUMMARY | 2025-03-25 13:12 | XMS REPORT | Continuity of Care Document ---
Author Name Unknown Address [address] [facility] [place] [address] [facility] [place] Address [address] [facility] [place] [address] Care Team Providers Care Wrapper Opener Name Role Phone UNKNOWN, ATTENDING Primary Care Physician Fredis Abbott Attending Clinician Unavailable EDWIN HOLLIDAY Attending Clinician Unavailable EDWIN HOLLIDAY Attending Clinician Unavailable North Wei MD Attending Clinician [phone] Laz Bernal DO Attending Clinician [phone] BILLY RADER Attending Clinician Unavailable BILLY RADER Attending Clinician Unavailable Miguel Calvin Attending Clinician UnavailMIKHAIL Banerjee Attending Clinician Unavailable MIKHAIL PUGH Attending Clinician Unavailable Billy Reveles Attending Clinician Ross Adame Attending Clinician Unavailable Edwin Holliday MD Attending Clinician [phone] CATHERINE_Fabio Attending Clinician Unavail Fredis Mendoza Admitting Clinician Unavailable BILLY RADER Admitting Clinician Unavailable CATHERINE_Shital_Oscar_ Admitting Clinician Unavail able Payers Payer Name Policy Type Policy Number Effective Date Expirati on Date Source [facility]LVAIN SUAREZ [facility] [id number] 2024 00:00:00 [place] [id number] 2017 00:00:00 Allergies, Adverse Reactions, Alerts Allergy Name Allergy Type Status Severity Reaction(s) Onset Date Inactive Date Treating Clinician Comments Source Penicill in Propensi ty to adverse reaction s Active Rash 03-18 00:00: 00 [facility] PENICILL IN DRUG INGREDI Active Rash 03-18 00:00: 00 [facility] Penicill ins DA Active [place] 2013-06 00:00: 00 [facility] Penicill ins DA Active [place] RASH 2013-06 00:00: 00 [facility] Social History Social Habit Start Date Stop Date Quantity Comments Source Sexual orientation U [facility] Sex assigned at 1965 00:00:00 1965 00:00:00 [facility] Smoking Status Start Date Stop Date Source Tobacco smoking consumption unknown [facility] Medications Ordered Medication Name Filled Medication Name Start Date Stop Date Current Medication? Ordering Clinician Indication Dosage Frequency Signature (SIG) Comments Components Source ketorolac (TORADOL) 30 mg/mL (1 mL) injection 30 mg 03-08 09:30: 00 03-08 08:35 :00 No 30mg 30 mg, Slow IV Push, ONCE, 1 dose, On Thu03/08/25 at 0430, Routine [facility] methocarbam oL (ROBAXIN) injection 1,000 mg 03-08 09:15: 00 03-08 08:38 :00 No 1000mg 1,000 mg, Slow IV Push, Administer over 3-5 Minutes, ONCE, 1 dose, On Thu03/08/25 at 0415, Routine [facility] dexAMETHaso ne PF (DECADRON) 10 mg/mL injection 10 mg 03-08 08:30: 00 03-08 08:36 :00 No 10mg 10 mg, Intramuscu lar, ONCE, 1 dose, On Thu03/08/25 at 0330, 1 mL [facility] FENTanyl (PF) (SUBLIMAZE) injection 75 mcg 03-06 21:15: 00 03-06 20:22 :00 No 75ug 75 mcg, Intramuscu lar, ONCE, 1 dose, On 03/06/25 at 1615, AURELIANO [facility] morphine (2 mg/mL) injection 6 mg 03-04 10:00: 00 03-04 10:00 :00 No 6mg 6 mg, Slow IV Push, ONCE, 1 dose, On 03/04/25 at 0500, STAT [facility] dexAMETHaso ne PF (DECADRON) 10 mg/mL injection 8 mg 03-02 23:15: 03-02 23:42 :00 No 8mg 8 mg, Slow IV Push, ONCE, 1 dose, On Renetta 03/02/25 at 1815, 1 mL [facility] ondansetron (ZOFRAN (PF)) injection 4 mg 03-02 23:15: 03-02 23:45 :00 No 4mg 4 mg, Slow IV Push, ONCE, 1 dose, On Renetta 03/02/25 at 1815, Administer over 2-5 Minutes, 2 mL [facility] morpHINE (4 mg/mL) injection 4 mg 03-02 23:15: 03-02 23:42 :00 No 4mg 4 mg, Slow IV Push, ONCE, 1 dose, On Renetta 03/02/25 at 1815, STAT [facility] methylPREDN ISolone (MEDROL, REAL,) 4 mg tablets 03-02 00:00: 00 Yes [id number] Take by mouth SEE-INSTRU CTIONS. follow package directions [facility] ketorolac (TORADOL) injection 30 mg 10 21:00: 00 11-29 20:13 :00 No 30mg 30 mg, Intramuscu lar, ONCE, 1 dose, On Thu11/29/24 at 1600, Routine [facility] dexamethaso ne sod phos PF injection 10 mg 11-29 20:15: 00 11-29 20:11 :00 No 10mg 10 mg, Intramuscu lar, ONCE, 1 dose, On Thu11/29/24 at 1515, 1 mL [facility] meloxicam 7.5 mg tablet 11-29 00:00: 00 Yes [id number] 7.5mg Take 1 tablet by mouth once daily as needed for Alternate with [place] for pain scale 4-6. [facility] HYDROcodone -acetaminop hen (NORCO) 10-325 mg tablet 1 tablet 2023-06 14:00: 00 06-13 13:23 :00 No 1{tbl} 1 tablet, Oral, ONCE, 1 dose, On Thu06/13/24 at 0800, AURELIANO [facility] HYDROcodone -acetaminop hen 5-325 mg tablet 2023-06 00:00: 00 06-13 00:00 :00 No [id number] 1{tbl} Take 1-2 tablets by mouth every 6 (six) hours as needed for Pain (scale 4-6). Indication s: acute pain [facility] oxyCODONE immediate release tablet 10 mg 03-18 10:45: 00 03-18 10:07 :00 No 10mg 10 mg, Oral, ONCE, 1 dose, On Thu03/18/24 at 0545, AURELIANO, membership secretary approving Restricted medication : EDWIN HOLLIDAY [facility] Vital Signs Vital Name Observation Time Observation Value Comments S irwin Systolic blood pressure 2025-03-08 09:23:00 148 mm[Hg] [facility] Diastolic blood pressure 2025-03-08 09:23:00 88 mm[Hg] [facility] Heart rate 2025-03-08 09:23:00 80 /min [facility] Body temperature 2025-03-08 09:23:00 36.61 Magi [facility] Respiratory rate 2025-03-08 09:23:00 18 /min [facility] Oxygen saturation in Arterial blood by Pulse oximetry 2025-03-08 09:23:00 99 /min [facility] Body height 2025-03-08 07:33:00 170.2 cm [facility] Body weight 2025-03-08 07:33:00 81.647 kg [facility] BMI 2025-03-08 07:33:00 28.19 kg/m2 [facility] Systolic blood pressure 2025-03-06 20:22:00 153 mm[Hg] [facility] Diastolic blood pressure 2025-03-06 20:22:00 94 mm[Hg] [facility] Heart rate 2025-03-06 20:22:00 95 /min [facility] Body temperature 2025-03-06 20:22:00 36.61 Magi [facility] Respiratory rate 2025-03-06 20:22:00 18 /min [facility] Oxygen saturation in Arterial blood by Pulse oximetry 2025-03-06 20:22:00 100 /min [facility] Body height 2025-03-06 19:37:00 170.2 cm [facility] Body weight 2025-03-06 19:37:00 81.647 kg [facility] BMI 2025-03-06 19:37:00 28.19 kg/m2 [facility] Systolic blood pressure 2025-03-04 10:00:00 142 mm[Hg] [facility] Diastolic blood pressure 2025-03-04 10:00:00 88 mm[Hg] [facility] Heart rate 2025-03-04 10:00:00 66 /min [facility] Body temperature 2025-03-04 10:00:00 36.89 Magi [facility] Respiratory rate 2025-03-04 10:00:00 18 /min [facility] Oxygen saturation in Arterial blood by Pulse oximetry 2025-03-04 10:00:00 98 /min [facility] Body height 2025-03-04 08:36:00 170.2 cm Univ [facility] Body weight 2025-03-04 08:36:00 82.056 kg [facility] BMI 2025-03-04 08:36:00 28.33 kg/m2 [facility] Systolic blood pressure 2025-03-03 02:05:00 157 mm[Hg] [facility] Diastolic blood pressure 2025-03-03 02:05:00 94 mm[Hg] [facility] Heart rate 2025-03-03 02:05:00 72 /min [facility] Body temperature 2025-03-03 02:05:00 36.78 Magi [facility] Respiratory rate 2025-03-03 02:05:00 24 /min [facility] Oxygen saturation in Arterial blood by Pulse oximetry 2025-03-03 02:05:00 97 /min [facility] Body height 2025-03-02 22:43:00 170.2 cm [facility] Body weight 2025-03-02 22:43:00 84.369 kg [facility] BMI 2025-03-02 22:43:00 29.13 kg/m2 [facility] Systolic blood pressure 2024-12-01 05:04:00 160 mm[Hg] [facility] Diastolic blood pressure 2024-12-01 05:04:00 89 mm[Hg] [facility] Heart rate 2024-12-01 05:04:00 76 /min [facility] Body temperature 2024-12-01 05:04:00 36.5 Magi [facility] Respiratory rate 2024-12-01 05:04:00 18 /min [facility] Body height 2024-12-01 05:04:00 170.2 cm Univ [facility] Body weight 2024-12-01 05:04:00 84.369 kg Univ [facility] BMI 2024-12-01 05:04:00 29.13 kg/m2 [facility] Oxygen saturation in Arterial blood by Pulse oximetry 2024-12-01 05:04:00 97 /min [facility] Systolic blood pressure 2024-11-29 20:18:10 147 mm[Hg] [facility] Diastolic blood pressure 2024-11-29 20:18:10 94 mm[Hg] [facility] Heart rate 2024-11-29 20:18:10 76 /min [facility] Body temperature 2024-11-29 20:18:10 36.78 Magi [facility] Respiratory rate 2024-11-29 20:18:10 16 /min [facility] Oxygen saturation in Arterial blood by Pulse oximetry 2024-11-29 20:18:10 97 /min [facility] Body height 2024-11-29 19:27:00 170.2 cm [facility] Body weight 2024-11-29 19:27:00 84.369 kg [facility] BMI 2024-11-29 19:27:00 29.13 kg/m2 [facility] Systolic blood pressure 2024-06-13 12:11:00 180 mm[Hg] [facility] Diastolic blood pressure 2024-06-13 12:11:00 106 mm[Hg] [facility] Heart rate 2024-06-13 12:11:00 77 /min [facility] Body temperature 2024-06-13 12:11:00 36.39 Magi [facility] Respiratory rate 2024-06-13 12:11:00 24 /min [facility] Body height 2024-06-13 12:11:00 170.2 cm [facility] Body weight 2024-06-13 12:11:00 84.913 kg [facility] BMI 2024-06-13 12:11:00 29.32 kg/m2 [facility] Oxygen saturation in Arterial blood by Pulse oximetry 2024-06-13 12:11:00 99 /min [facility] Systolic blood pressure 2024-03-18 09:37:00 147 mm[Hg] [facility] Diastolic blood pressure 2024-03-18 09:37:00 100 mm[Hg] [facility] Heart rate 2024-03-18 09:37:00 76 /min [facility] Body temperature 2024-03-18 09:37:00 36.78 Magi [facility] Respiratory rate 2024-03-18 09:37:00 16 /min [facility] Body height 2024-03-18 09:37:00 170.2 cm [facility] Body weight 2024-03-18 09:37:00 88.451 kg [facility] BMI 2024-03-18 09:37:00 30.54 kg/m2 [facility] Oxygen saturation in Arterial blood by Pulse oximetry 2024-03-18 09:37:00 99 /min Turner o [facility] Procedures Procedure Date / Time Performed Performing Clinicia n Source XR CHEST 2 VW 2025-03-03 00:36:42 Billy Rader [facility] BASIC METABOLIC PANEL (NA, K, CL, CO2, GLUCOSE, BUN, CREATININE, CA) 2025-03-02 23:41:00 Billy Rader [facility] CBC WITH DIFF 2025-03-02 23:41:00 Billy Rader [facility] N-TERMINAL PRO-BNP 2025-03-02 23:41:00 Blily Rader [facility] TROPONIN I 2025-03-02 23:41:00 Billy Rader [facility] Encounters Start Date/Time End Date/Time Encounter Type Admission Type Attending Clinicians Care Facility Care Department Encounter ID Source 2023-04-30 10:00:00 Inpatient Fredis Asencio PRINCEVA RAD [id number] [facility] 2025-03-08 02:37:00 2025-03-08 04:24:00 Emergency X EDWIN HOLLIDAY WAKILI [facility] ERT [id number] [facility] 2025-03-06 14:39:00 2025-03-06 15:29:00 Emergency X North Wei [facility] 1.2.840.114 350.1.13.10 4.2.7.2.686 [id number] [facility] 2025-03-04 03:48:00 2025-03-04 05:23:00 Emergency X Laz Bernal [facility] 1.2.840.114 350.1.13.10 4.2.7.2.686 [id number] [facility] 2025-03-02 17:46:00 2025-03-02 21:11:00 Emergency X BILLY RADER ERICCA [facility] ERT [id number] [facility] 2025-02-27 06:14:00 2025-02-27 06:14:00 Outpatient Miguel Curry ANDI [id number] [facility] 2024-12-01 00:07:00 2024-12-01 01:10:00 Emergency X MIKHAIL PUGH PAMALA [facility] ERT [id number] [facility] 2024-11-29 14:30:00 2024-11-29 15:57:00 Emergency X Billy Rader [facility] 1.2.840.114 350.1.13.10 4.2.7.2.686 [id number] [facility] 2024-11-05 07:42:00 2024-11-05 09:37:00 Emergency EM Ross Adame [facility] ER [id number] [facility] 2024-06-13 06:16:00 2024-06-13 07:28:00 Emergency [place] Wei [facility] 1.2.840.114 350.1.13.10 4.2.7.2.686 [id number] [facility] 2024-03-18 04:48:00 2024-03-18 05:29:00 Emergency X EDWIN HOLLIDAY WAKILI [facility] ERT [id number] [facility] 2024-03-18 04:48:00 2024-03-18 05:29:00 Emergency Edwin Holliday [facility] 1.2.840.114 350.1.13.10 4.2.7.2.686 [id number] [facility] 2022-07-07 09:32:00 2022-07-07 09:32:00 Outpatient Fredis Asencio RAD [id number] [facility] Results Test Description Test Time Test Comments [...] and soft tissues: No acute abnormality detected. [id number] 00:20:49* Test Item Value Reference Range Interpretation Comme nts TROPONIN I (test code = 2557063237) 0.004 ng/mL <=0.034 DEVAN (test code = [...] of biotin. Lab Interpretation (test code = 90831-7) Normal [facility] [id number] 00:18:07* Test Item Value Reference Range Interpretation Comme nts NT-proBNP (test code = 65860-5) 943 pg/mL <=125 H DEVAN (test code = DEVAN) Positive: Heart Failure Likely Lab Interpretation (test code = 80594-7) Abnormal [facility] METABOLIC PANEL (NA, K, CL, CO2, GLUCOSE, BUN, CREATININE, CA)2025-03-03 00:08:45* Test Item Value Reference Range Interpretation Comme nts NA (test code = 3538294597) 138 mmol/L 135-145 K (test code = 6777539291) 3.7 mmol/L 3.5-5.0 CL (test code = 2982828794) 110 mmol/L 98-108 H CO2 TOTAL (test code = 7338154269) 22 mmol/L 23-31 L AGAP (test code = 5917629480) 6 2-16 BUN (test code = 5905621838) 28 mg/dL 7-23 H GLUCOSE (test code = 5042571780) 102 mg/dL 70-110 CREATININE (test code = 2160-0) 0.95 mg/dL 0.60-1.25 CALCIUM (test code = 2850412395) 8.9 mg/dL 8.6-10.6 eGFR (test code = 72898-3) 92.2 mL/min/1.73m2 CKD-EPI eGFR (2020). Assuming creatinine has been stable day-to-day for at least three months, the eGFR indicates Category G1 (>= 90 mL/min/1.73 m2) Lab Interpretation (test code = 38834-8) Abnormal [facility] METABOLIC [id number] 14:55:00* Test Item Value Reference Range Interpretation [...] = CA) 9.6 mg/dL 7.6-10.9 N PROTHROMBIN [id number] 14:52:00* Test Item Value Reference Range Interpretation [...] patients with mechanicalprosthetic heart valves. THROMBOPLASTIN TIME [id number] 14:52:00* Test Item Value Reference Range Interpretation Comme nts THROMBOPLASTIN TIME PARTIAL (test code = PTT) 27.6 SECONDS 25.9-37.7 N CBC W/AUTO [id number] 14:18:00* Test Item Value Reference Range Interpretation [...] NRBC#) 0.00 K/mm3 0.00-0.20 N - RETROPERITONEAL [id number] 11:20:00 [facility] [place] [facility] 1965 Sex: M [place]: [address] St: REG -- Name: HI PEREZ [facility] [place] [facility] : 1965 Age/S: 56/M [address] [facility] Unit #: [id number] Loc: [place], [place] [address] Phys: Fredis Hilliard MD Acct: [id number] Dis Date: Status: REG CLI PHONE #: [phone] Exam Date: 07/07/2022 [facility]4 FAX #: [phone] Reason: ESSENTIAL PRIMARY HTN EXAMS: CPT CODE: [id number] US RETROPERITONEAL COMPLETE 97575 Retroperitoneal ultrasound with duplex imaging. Location: H19 History: Essential primary HTN. Comparison: 06/30/2016Technique and Findings: Grayscale, spectral, color Doppler ultrasound [...] significant hematoma stenosis of the renal arteries. Elect ronically Signed by CECELIA CHEW MD on 07/07/2022 at 1120 Reported and signed by: CECELIA HANG, MDPAGE 1 Signed Report (CONTINUED) [place]idot: [facility] St: REG Name: HI PEREZ [facility] : 1965 Age/S: 56/M [address] [facility] Unit #: [id number] Loc: [place], [place] [address] Phys: Fredis Hilliard MD Acct: [id number] Dis Date: Status: REG CLI PHONE #: [phone] Exam Date: 07/07/2022 1014 FAX #: [phone] Reason: ESSENTIAL PRIMARY HTN EXAMS: CPT CODE: [id number] US RETROPERITONEAL COMPLETE 70169 (Continued) Facility ACR Accreditation for Ultrasound - July 2011 CC: Maria Teresa Hilliard MD Technologist: GAGANDEEP PASCUAL RVS Transcribed Date/Time/By: 07/07/2022 (1120) : By: [email or web address] Orig Print D/T: S: 07/07/2022 (1120) PAGE 2 Signed Report- DUP AO/IVC/IV/BPG LTD 2022-07-07 11:20:00 [facility] [place] [facility] : 1965 Sex: M [place]: [facility] St: REG -- Name: HI PEREZ [facility] [place] [facility] : 1965 Age/S: 56/M [address] Unit #: [id number] Loc: [place] [address] Phys: Fredis Hilliard MD Acct: [id number] Dis Date: Status: REG CLI PHONE #: [phone] Exam Date: 07/07/2022 1014 FAX #: [phone] Reason: ESSENTIAL PRIMARY HTN EXAMS: CPT CODE: [id number] DUP AO/IVC/IV/BPG LTD 13539 Retroperitoneal ultrasound with duplex imaging. Location: H19 [...] artery: 148.3 Left proximal renal artery: 63.0 Leftdistal renal artery: 41.0. Aorta: 114.8 Right renal artery to aorta ratio: 1.3 Left renal artery toaorta ratio: 0.7 The visualized renal veins are patent. The bladder appears smooth-walled. Impression: No sonographic evidence for significant hematoma stenosis of the renal arteries. at 1120 Reported and signed by: CECELIA CHEW MD PAGE 1 S igned Report (CONTINUED) [place]: [facility] St: REG Name: HI PEREZ [facility] : 1965 Age/S: 56/M [address] Unit #: [id number] Loc: .[place], [place] [address] Phys: Fredis Hilliard MD Acct: [id number] Dis Date: Status: REG CLI PHONE #: [phone] Exam Date: 07/07/2022 1014 FAX #: [phone] Reason: ESSENTIAL PRIMARY HTN EXAMS: CPT CODE: [id number] DUP AO/IVC/IV/BPG LTD 63238 (Continued) Facility ACR Accreditation for Ultrasound - July 2011 CC: Fredis Hilliard MD Technologist: GAGANDEEP PASCUAL RVS Transcribed Date/Time/By: 07/07/2022 (1120) : By: [email or web address] [facility] Print D/T: S: 07/07/2022 (1129) PAGE 2 Signed Report- VEIN REFLUX [id number] 11:48:00 [place]idot: [facility] St: PRE Name: HI PEREZ [facility] : 1965 Age/S: 53/M [address] Unit #: [id number] Loc: [place] [id number] Phys: David James MD Acct: [id number] Dis Date: Status: PRE CLI PHONE #: [phone] Exam Date: 05/04/2019 1110 FAX #: [phone]: VENOUS INSUFFICIENSCY EXAMS: CPT CODE: [id number] VEIN REFLUX STUDY 65518 BILATERAL LOWER EXTREMITIES VENOUS DUPLEX INCLUDING ADDITIONAL EVALUATION FOR VENOUS INSUFFICIENCY INDICATION: Venousinsufficiency. COMPARISON: No prior imaging. TECHNIQUE: Real-time grayscale, color and pulsed Doppler evaluation. FINDINGS: The bilateral common femoral, superficial femoral, and popliteal veins dem onstrate normal compressibility, normal phasic venous flow, and [...] calf: 2.3 mm, no significant reflux - Midcalf: 2.3 mm, no significant reflux - Distal calf: 2.3 mm, no significant reflux On the LEFT, in the upright position the greater and lesser saphenous veins were evaluated from the femoral-saphenous junction down to the ankle and the diameter and result of the spectral Doppler evaluation are: Greate r saphenous vein - Upper thigh: 6.7 mm, no significant reflux - Mid thigh: 3.9 mm, no significant reflux PAGE 1 Signed Report (CONTINUED) [place]idot: [facility] St: PRE Name: HI PEREZ [facility] : 1965 Age/S: 53/M [address] [facility] Unit #: [id number] Loc: [place], [place] [address] Phys: David James MD Acct: [id number] Dis Date: Status: PRE CLI PHONE #: [phone] Exam Date: 05/04/2019 1110 FAX #: [phone] Reason: VENOUS INSUFFICIENSCY EXAMS: CPT CODE: [id number] VEIN REFLUX STUDY 02960 (Continued) - Distal thigh: 3.1 mm, no [...] By: [email or web address] Orig Print D/T: S: 05/09/2019 (7335) PAGE 2 Signed Report- MRI L- SPINE W/O [id number] 10:18:00FAX: Gurjit Quinn [phone] Camps: [facility] St: REG FAX: Jordan Ocampo MD [phone] -- Name: HI PEREZ [facility] : 1965 Age/S: 53/M [address] [facility] Unit #: [id number] Loc: [place], [place] [address] Phys: Jordan Novoa MD Acct: [id number] Dis Date: Status: REG [facility] PHONE #: [phone] Exam Date: 12/28/2018 0934 FAX #: [phone] Reason: LUMBAR STENOSIS EXAMS: CPT CODE: [id number] MRI L-SPINE W/O CONT 64702 EXAM: MRI LUMBAR SPINE WITHOUT CONTRAST INDICATION: [...] L1-L2: No spinal canal or neuroforaminal stenosis. L2-L3:No spinal canal or neuroforaminal stenosis. L3-L4: Minimal retrolisthesis with pseudobulge measuring 6 mm. Mild spinal canal stenosis. Facet joint hypertrophy with moderate right and mild left neuroforaminal stenosis. L4-L5: Postsurgical changes. No spinal canal or neuroforaminal stenosis. L5-S1: Postsurgical changes. No spinal canal or neuroforaminal stenosis. IMPRESSION: PAGE 1 Signed Report (CONTINUED) FAX: Gurjit Quinn [phone] Camps: [facility] St: REG FAX: Jordan Ocampo MD [phone] Name: HI PEREZ [facility] : 1965 Age/S: 53/M [address] [facility] Unit #: [id number] Loc: [place], [place] [address] Phys: Jordan Novoa MD Acct: [id number] Dis Date:Status: REG SD PHONE #: [phone] Exam Date: 12/28/2018 09 FAX #: [phone] Reason: LUMBAR STENOSIS EXAMS: CPT CODE: [id number] MRI L-SPINE W/O CONT 35860 (Continued) Discogenic disease and facet joint arthropathy throughout the lumbar spine. Minimal retrolisthesis of L3 over L4 with mild spinal canal stenosis. Moderate right neuroforaminal stenosis at L3-L4. Postsurgical changes at L4-S1. LOCATION: A 1 at 1018 Reported and signed by: SHEREE HALE M.D. CC: Gurjit Cline MD; Jordan Novoa MD Technologist: Fredis Talley RT(R)(CT)(MRI)ARRT Transcribed Date/Time/By: 12/28/2018 (1018) :16 Orig Print D/T:S: 12/28/2018 (4683) PAGE 2 Signed ReportBASIC METABOLIC [id number] 11:07:00* Test Item Value Reference Range Interpretation [...] CA) 9.2 mg/dL 7.8-10.9 N CBC W/O [id number] 10:50:00* Test Item Value Reference Range Interpretation [...] oxycodone, gabapentin, methylprednisolone, flexeril Estelita Mark RN [facility] 2025-03-06 14:35:00 Hi Perez is a 59 year old male arrived to ED via personal means with CC of lower back and genaro knee pain since 11am. Hx of arthritis, taking oxycodone but not helping today. Seen by ortho today but unable to do injections till insurance approval. Has a PCP follow up on Thursday scheduled. Debi Martini RN [facility] 2025-03-04 05:23:02 Pt given printed and verbal [...] in no apparent distress, Callie Carver RN [facility] 2025-03-04 04:37:26 SAFE-T Protocol with C-SSRS ([place] Risk and Protective Factors) - Recent Step [...] pain or other acute medical problem (e.g. POST FRAMER disorders) Access to lethal methods: (P) No [...] there things, anyone or anything (e.g. family, anabaptist, pain of ), that stopped you from [...] Psychiatry provider in 1 week or less. [facility] EMERGENCY PHYSICIAN STAFF [facility] 2025-03-04 03:29:24 Arrives to ED ambulatory. C/O [...] having a plan to hurt himself. Keiry Landon RN [facility] 2025-03-02 21:10:02 Pt given printed and verbal [...] in no apparent distress, Tanya Edwards RN [facility] 2025-03-02 17:44:44 Patient reports chronic back pain and right knee pain that is intolerable, as well as shortness of breath. Patient states that he has asbestos exposure. Denies chest pain, fevers. Presents vitally stable. HX: Von Willebrand's, asbestos exposure. Myesha Truong RN [facility] 2025-02-24 13:23:00 [id number] [facility] [address] [place], [place], [address] PATIENT NAME: HI PEREZ JR ADMIT DATE: ACCOUNT NO: [id number] ROOM NO: AGE: 59 REPORT TYPE: ELECTROCARDIOGRAM SEX: M ADMITTING PHYSICIAN: ATTENDING PHYSICIAN:Miguel Calvin MD Order: [id number] Test Reason : PRE OP Test Date/Time [...] at 1039 PATIENT NAME: HI PEREZ JR [facility] 2024-12-01 01:08:09 Pt reported to ED registration pt wanted to leave. ERP notified. Augustin Boothe RN [facility] 2024-12-01 00:00:23 Pt feels like he is going through withdrawals, takes oxycodone for chronic pain but hasn't had any for 6 days. C/o tossing and turning, unable to relax, feeling jittery States he ran out faster than he should have because he has been taking extra Estelita Mark RN [facility] 2024-11-29 15:54:05 Patient is awake and alert, oriented x4, speech is clear and appropriate, ambulatory with a steady gait. Advised to seek medical attention for new/prolonged/worsening of symptoms. Respirations even and unlabored, no distress. Vielka Reyes RN [facility] 2024-11-29 14:27:44 Pt arrived ambulatory without assist. Pt c/o chronic "arthritis" pain that starts in knees and then travels up his back. Tanya Edwards RN [facility] 2024-11-05 08:06:00 [facility] EMERGENCY PROVIDER REPORT REPORT#:[id number] REPORT STATUS: Signed DATE:11/05/24 TIME: 08 PATIENT: HI PEREZ UNIT #: [id number] ROOM/BED: : 65 AGE: 58 SEX: M PCP PHYS: Fredis Hilliard MD SERVICE AUTHOR: Meche Campbell AIRCRAFT ASSEMBLER REP SRV REP SRV TM: [id number] * [...] Result Date Time Pulse Ox 90 11/05 0746 B/P 133/84 11/05 0746 B/P Mean 100.7 11/05 0746 Temp 36.7 11/05 0746 Pulse 82 11/05 0746 O2 Delivery Room air 11/05 853 Resp 11/0554 Last Documented: Result Date Time Pulse Ox 99 11/05 853 B/P 124/67 11/05 853 O2 Delivery Room air 11/05 853 Temp 36.8 11/05 0854 Pulse 77 11/05 0854 Resp 14 11/06 0754 B/P Mean 100.7 11/05 0746 Review of [...] Admin Acetaminophen/ 1 UDTAB X1ED STA 11/05 0805 DC 11/05 Codeine Phosphate PO 11/05 Ketorolac 60 MG X1ED STA 11/05 0805 DC 11/05 Tromethamine IM 11/05 Patient Discharge Departure Vital Signs/Condition Vital Signs First Documented: Result Date Time Pulse Ox 90 11/05 745 B/P 133/84 11/05 745 B/P Mean 100.7 11/05 0646 Temp 36.7 11/05 745 Pulse 82 11/05 07 O2 Delivery Room air 11/05 0854 Resp 11/05 Last Documented: Result Date Time Pulse Ox 99 11/05 853 B/P 124/67 11/06 0754 O2 Delivery Room air 11/05 853 Temp 36.8 11/05 853 Pulse 77 11/05 0854 Resp 11/05 B/P Mean 100.7 11/05 0746 All vital [...] Saw Pt Alone I have reviewed the PA/AIRCRAFT ASSEMBLER's note and plan of care. I was available for consultation as needed at all times during the patient's visit in the emergency department. I agree with the clinical impression, plan and disposition. at 0701 at 0724 RPT #:[id number] END OF REPORT [facility] 2024-06-13 07:27:57 PT D/C home. GCS15, VS stable, no ataxia noted. Given one prescription (changed to [facility] per pt request) and D/C paperwork. Pt ambulatroy at time of discharge. Pt educated on diagnosis, med usage, follow up care, s/s worsening condition. Pt verbalized understanding. UCTION SPECIALIST Edda Mcgee RN [facility] 2024-06-13 06:06:23 Pt ambulatory to triage [...] of lumbar fusion and laminectomy and arthritis UCTION SPECIALIST Calderon Kennedy RN [facility] 2024-03-18 05:13:37 Awake, alert oriented X4, [...] noted upon discharge Pt ambulated to the [facility] with steady gait Leslie Hoover RN [facility] 2024-03-18 04:38:22 CC: Pt was prescribed oxycodone for lumbar fusion pain by . Pt states the PCP refilled his prescription, and he went to [facility] order but pharmacist refused refill. HEB [...] all ext without difficulty, amb without assistance [facility]
[2025-03-25] MEDS ORDERED: MORPHINE 4 MG/ML SYR ONE (13:52)
[2025-03-25] MEDS ORDERED: METHYLPREDNISOLONE 125 MG INJ ONE (13:52)
--- NOTE | 2025-03-25 13:56 | ER ---
Nurse's Notes [facility] Name: Jim Maldonado Jr Age: 59 yrs Sex: Male : 1965 Arrival Date: 03/25/2025 Time: 13:08 Bed 5 Private MD: Diagnosis: Acute on chronic pain Presentation: 03/25 13:14 Chief complaint: Patient states: c/o SOB x 4 days that is worse when lying down. me1 Coughing up white phlegm, cough is worse when lying down also. Denies fever. Reports pain to bilateral knees from arthritis, took oxycodone this morning but was out of gabapentin and just picked up a refill but hasnt taken it yet. Pain is 03/31. Coronavirus screen: Vaccine status: Patient reports receiving the 2nd dose of the covid vaccine. Ebola Screen: No symptoms or risks identified at this time. Initial Sepsis Screen: Does the patient meet any 2 criteria? No. Patient's initial sepsis screen is negative. Does the patient have a suspected source of infection? No. Patient's initial sepsis screen is negative. Risk Assessment: Do you want to hurt yourself or someone else? Patient reports no desire to harm self or others. Onset of symptoms was March 22, 2025. 13:14 Method Of Arrival: Ambulatory [facility] 13:14 Acuity: MARCEL 3 me1 Historical: - Allergies: 13:19 PENICILLINS; me1 - PMHx: 13:19 Arthritis; chronic back pain; gastritis; Hypertensive disorder; Rashi Willebrand Disease; me1 T12, L1, L2 bulging disc; 03/16 (Unknown); - PSHx: 13:19 laminectomy; Spinal Fusion; me1 - Immunization history:: Adult Immunizations up to date. - Infectious Disease History:: Denies. - Social history:: Smoking status: Patient denies any tobacco usage or history of. Screenin:15 [facility] ED Fall Risk Assessment (Adult) History of falling in the last 3 months, cm10 including since admission No falls in past 3 months (0 pts) Confusion or Disorientation No (0 pts) Intoxicated or Sedated No (0 pts) Impaired Gait No (0 pts) Mobility Assist Device Used No (0 pt) Altered Elimination No (0 pt) Score/Fall Risk Level 0 - 2 = Low Risk Oriented to surroundings, Maintained a safe environment, Hourly rounding (assess needs \T\ fall precautionary measures) done. Abuse screen: Denies threats or abuse. Denies injuries from another. Nutritional screening: No deficits noted. Tuberculosis screening: No symptoms or risk factors identified. Assessment: 14:00 General: Appears in no apparent distress. comfortable, Behavior is calm, cooperative, cm10 appropriate for age. Pain: Complains of pain in back and bilateral knees. 14:15 Respiratory: No deficits noted. Airway is patent Respiratory effort is even, unlabored, cm10 Respiratory pattern is regular, symmetrical. 14:15 Musculoskeletal: No deficits noted. Range of motion: intact in all extremities. cm10 Vital Signs: 13:14 BP 185 / 105; Pulse 80; Resp 19; Temp 98.2; Pulse Ox 100% ; Weight 81.65 kg; Height 5 me1 ft. 7 in. ; Pain 10/10; 14:13 BP 183 / 97; Pulse 82; Resp 16; Pulse Ox 100% ; cm10 14:28 BP 157 / 84; cm10 13:14 Body Mass Index 28.19 (81.65 kg, 170.18 cm) me1 13:14 Pain Scale: Adult me1 ED Course: 13:10 Patient arrived in ED. ts1 13:13 Dharmesh Alvarez MD is Attending Physician. sp3 13:19 Triage completed. me1 13:19 Arm band placed on Patient placed in an exam room. me1 13:28 Nora Lopez, ELIAS is Primary Nurse. cm10 14:16 Patient has correct armband on for positive identification. cm10 14:16 No provider procedures requiring assistance completed. Patient did not have IV access cm10 during this emergency room visit. 14:27 Provided Education on: Follow-up instructions. cm10 Administered Medications: 14:03 Drug: MethylPREDNISolone Sodium Succinate IM 125 mg IM once Route: IM; Site: left cm10 gluteus; 14:28 Follow up: Response: No adverse reaction nh2 14:03 Drug: morphine IM 4 mg IM once Route: IM; Site: right gluteus; cm10 14:28 Follow up: Response: No adverse reaction; Pain is decreased nh2 Medication: 14:15 VIS not applicable for this client. cm10 Outcome: 13:56 Discharge ordered by . sp3 14:27 Discharged to home ambulatory, with family, cm10 14:27 Condition: good 14:27 Discharge instructions given to patient, Instructed on discharge instructions, follow up and referral plans. Demonstrated understanding of instructions, follow-up care, 14:28 Patient left the ED. nh2 Signatures: Dharmesh Alvarez MD MD sp3 Archana Kumar PAS PAS ts1 Nora Lopez RN RN cm10 Michelle Singer RN RN me1 Collin Florez Jr RN RN nh2
--- NOTE | 2025-03-25 13:56 | EDPHYS ---
Physician Documentation [facility] Name: Jim Maldonado Jr Age: 59 yrs Sex: Male : 1965 Arrival Date: 03/25/2025 Time: 13:08 Bed 5 Private MD: ED Physician Dharmesh Alvarez HPI: 03/25 13:49 This 59 yrs old Male presents to ER via Ambulatory with complaints of sp3 Shortness Of Breath, Back Pain, Knee Pain. 13:49 59-year-old male with history of chronic back pain, chronic pain, chronic arthritis, sp3 von Willebrand's disease, hypertension, T12 compression fractures, presents to the ED for recurrent acute on chronic pain. Patient states she has an appointment with pain management next week. He denies any new injury, or any other new pattern to this pain. ROS negative for fever, chest pain, shortness of breath, or any other signs or symptoms on ROS at this time.. Historical: - Allergies: 13:19 PENICILLINS; me1 - PMHx: 13:19 Arthritis; chronic back pain; gastritis; Hypertensive disorder; Rashi Willebrand Disease; me1 T12, L1, L2 bulging disc; 03/16 (Unknown); - PSHx: 13:19 laminectomy; Spinal Fusion; me1 - Immunization history:: Adult Immunizations up to date. - Infectious Disease History:: Denies. - Social history:: Smoking status: Patient denies any tobacco usage or history of. ROS: 13:54 Constitutional: Negative for fever, chills, and weight loss, Eyes: Negative for injury, sp3 pain, redness, and discharge, Neck: Negative for injury, pain, and swelling, Cardiovascular: Negative for chest pain, palpitations, and edema, Respiratory: Negative for shortness of breath, cough, wheezing, and pleuritic chest pain, Abdomen/GI: Negative for abdominal pain, nausea, vomiting, diarrhea, and constipation, : Negative for injury, bleeding, discharge, and swelling, Skin: Negative for injury, rash, and discoloration, Neuro: Negative for headache, weakness, numbness, tingling, and seizure, Psych: Negative for depression, anxiety, suicide ideation, homicidal ideation, and hallucinations, Allergy/Immunology: Negative for hives, rash, and allergies, Endocrine: Negative for neck swelling, polydipsia, polyuria, polyphagia, and marked weight changes, Hematologic/Lymphatic: Negative for swollen nodes, abnormal bleeding, and unusual bruising, 13:54 All other systems are negative, Exam: 13:54 Constitutional: This is a well developed, well nourished patient who is awake, alert, sp3 and in no acute distress. Head/Face: Normocephalic, atraumatic. Eyes: Pupils equal round and reactive to light, extra-ocular motions intact. Lids and lashes normal. Conjunctiva and sclera are non-icteric and not injected. Cornea within normal limits. Periorbital areas with no swelling, redness, or edema. Neck: Trachea midline, no thyromegaly or masses palpated, and no cervical lymphadenopathy. Supple, full range of motion without nuchal rigidity, or vertebral point tenderness. No Meningismus. Chest/axilla: Normal chest wall appearance and motion. Nontender with no deformity. No lesions are appreciated. Cardiovascular: Regular rate and rhythm with a normal S1 and S2. No gallops, murmurs, or rubs. Normal PMI, no JVD. No pulse deficits. Respiratory: Lungs have equal breath sounds bilaterally, clear to auscultation and percussion. No rales, rhonchi or wheezes noted. No increased work of breathing, no retractions or nasal flaring. Abdomen/GI: Soft, non-tender, with normal bowel sounds. No distension or tympany. No guarding or rebound. No evidence of tenderness throughout. Skin: Warm, dry with normal turgor. Normal color with no rashes, no lesions, and no evidence of cellulitis. Neuro: Awake and alert, GCS 15, oriented to person, place, time, and situation. Cranial nerves II-XII grossly intact. Motor strength 5/5 in all extremities. Sensory grossly intact. Cerebellar exam normal. Normal gait. Psych: Awake, alert, with orientation to person, place and time. Behavior, mood, and affect are within normal limits. Vital Signs: 13:14 BP 185 / 105; Pulse 80; Resp 19; Temp 98.2; Pulse Ox 100% ; Weight 81.65 kg; Height 5 me1 ft. 7 in. ; Pain 10/10; 14:13 BP 183 / 97; Pulse 82; Resp 16; Pulse Ox 100% ; cm10 14:28 BP 157 / 84; cm10 13:14 Body Mass Index 28.19 (81.65 kg, 170.18 cm) me1 13:14 Pain Scale: Adult me1 MDM: 13:31 Medical Screening Exam initiated sp3 13:55 Data reviewed: vital signs, nurses notes, old medical records. ED course: Patient with sp3 acute on chronic pain versus other new process. I clinically have ruled out any new fracture or traumatic injury. We will give 1 dose of Solu-Medrol and 1 dose of morphine both intramuscularly safely discharge patient home.. Administered Medications: 14:03 Drug: MethylPREDNISolone Sodium Succinate IM 125 mg IM once Route: IM; Site: left cm10 gluteus; 14:28 Follow up: Response: No adverse reaction nh2 14:03 Drug: morphine IM 4 mg IM once Route: IM; Site: right gluteus; cm10 14:28 Follow up: Response: No adverse reaction; Pain is decreased nh2 Disposition Summary: 03/25/25 13:56 Discharge Ordered Notes: Location: Home sp3 Condition: Stable sp3 Diagnosis - Acute on chronic pain sp3 Followup: sp3 - With: Private Physician - When: Upon discharge from the Emergency Department - Reason: Continuance of care Discharge Instructions: - Discharge Summary Sheet sp3 - Chronic Pain, Adult sp3 Forms: - Medication Reconciliation Form sp3 - Antibiotic Education sp3 - Prescription Opioid Use sp3 - Patient Portal Instructions sp3 - Leadership Thank You Letter sp3 Signatures: Dharmesh Alvarez MD MD sp3 Nora Lopez RN RN cm10 Michelle Singer RN RN wa1 Collin Florez Jr, RN nh2
[2025-03-25 15:03] VITALS: TEMP 98.2; O2SAT 100
[2025-03-25 15:05] VITALS: BP 157/84
== END 2025-03-25 14:28 | disposition home or self-care (01) ==
LOC: ER 13:08
DX: G89.29 Other chronic pain (principal)
CPT/HCPCS: 96372; 99284; J2919

== ENCOUNTER 2025-03-27 17:15 | Emergency (ER) | payer OTHER ==
--- OUTSIDE RECORDS SUMMARY | 2025-03-27 17:20 | XMS REPORT | Continuity of Care Document ---
Author Name Unknown Address [address] [facility]. [address] [place] [address] Organization [facility] [place] Address [address] [facility] [place] [address] Care Team Providers Care Copyright Clerk Name Role Phone JACOB CECIL Primary Care Physician Fredis Abbott Attending Clinician Unavailable BILLY RADER Attending Clinician Unavailable BILLY RADER Attending Clinician Unavailable Billy Reveles Attending Clinician [phone] EDWIN HOLLIDAY Attending Clinician Unavailable EDWIN HOLLIDAY Attending Clinician Unavailable [place] Wei MD Attending Clinician [phone] Laz Bernal DO Attending Clinician [phone] Miguel Calvin Attending Clinician UnavailMIKHAIL Banerjee Attending Clinician Unavailable MIKHAIL PUGH Attending Clinician Unavailable Ross Adame Attending Clinician Unavailable Edwin Holliday MD Attending Clinician [phone] Hernán Attending Clinician Unavail able Fredis Hilliard Admitting Clinician Unavailable BILLY RADER Admitting Clinician Unavailable Hernán Admitting Clinician Unavail able Payers Payer Name Policy Type Policy Number Effective Date Expirati on Date Source HIM [facility] [id number] 2024 00:00:00 [place] [id number] 2017 00:00:00 Allergies, Adverse Reactions, Alerts Allergy Name Allergy Type Status Severity Reaction(s) Onset Date Inactive Date Treating Clinician Comments Source Penicill in Propensi ty to adverse reaction s Active Rash 03-18 00:00: 00 [facility] PENICILL IN DRUG INGREDI Active Rash 03-18 00:00: 00 [facility] Penicill ins DA Active [place] 2013-06 00:00: 00 [facility] Penicill ins DA Active [place] RASH 2013-06 00:00: 00 [facility] Social History Social Habit Start Date Stop Date Quantity Comments Source Sexual orientation U [facility] Sex assigned at 1965 00:00:00 1965 00:00:00 [facility] Smoking Status Start Date Stop Date Source Tobacco smoking consumption unknown [facility] Medications Ordered Medication Name Filled Medication Name Start Date Stop Date Current Medication? Ordering Clinician Indication Dosage Frequency Signature (SIG) Comments Components Source ketorolac (TORADOL) 30 mg/mL (1 mL) injection 30 mg 2024-06 15:00: 00 03-27 14:11 :00 No 30mg 30 mg, Intramuscu lar, ONCE, 1 dose, On Thu03/27/25 at 1000, Routine [facility] dexAMETHaso ne PF (DECADRON) 10 mg/mL injection 10 mg 2024-06 14:15: 00 03-27 14:11 :00 No 10mg 10 mg, Intramuscu lar, ONCE, 1 dose, On Thu03/27/25 at 0915, 1 mL [facility] ketorolac (TORADOL) 30 mg/mL (1 mL) injection 30 mg 03-08 09:30: 00 03-08 08:35 :00 No 30mg 30 mg, Slow IV Push, ONCE, 1 dose, On Thu03/08/25 at 0430, Routine [facility] methocarbam oL (ROBAXIN) injection 1,000 mg 03-08 09:15: 03-08 08:38 :00 No 1000mg 1,000 mg, Slow IV Push, Administer over 3-5 Minutes, ONCE, 1 dose, On Thu03/08/25 at 0415, Routine [facility] dexAMETHaso ne PF (DECADRON) 10 mg/mL injection 10 mg 03-08 08:30: 00 03-08 08:36 :00 No 10mg 10 mg, Intramuscu lar, ONCE, 1 dose, On Thu03/08/25 at 0330, 1 mL [facility] FENTanyl (PF) (SUBLIMAZE) injection 75 mcg 03-06 21:15: 03-06 20:22 :00 No 75ug 75 mcg, Intramuscu lar, ONCE, 1 dose, On Thu03/06/25 at 1615, AURELIANO [facility] morphine (2 mg/mL) injection 6 mg 03-04 10:00: 00 03-04 10:00 :00 No 6mg 6 mg, Slow IV Push, ONCE, 1 dose, On 03/04/25 at 0500, STAT [facility] dexAMETHaso ne PF (DECADRON) 10 mg/mL injection 8 mg 03-02 23:15: 03-02 23:42 :00 No 8mg 8 mg, Slow IV Push, ONCE, 1 dose, On Renetta 03/02/25 at 1815, 1 mL [facility] ondansetron (ZOFRAN (PF)) injection 4 mg 03-02 23:15: 03-02 23:45 :00 No 4mg 4 mg, Slow IV Push, ONCE, 1 dose, On Renetta 03/02/25 at 1815, Administer over 2-5 Minutes, 2 mL [facility] morpHINE (4 mg/mL) injection 4 mg 03-02 23:15: 00 03-02 23:42 :00 No 4mg 4 mg, Slow IV Push, ONCE, 1 dose, On Thu03/02/25 at 1815, STAT [facility] methylPREDN ISolone (MEDROL, REAL,) 4 mg tablets 03-02 00:00: 00 Yes [id number] Take by mouth SEE-INSTRU CTIONS. follow package directions [facility] ketorolac (TORADOL) injection 30 mg 11-29 21:00: 00 11-29 20:13 :00 No 30mg 30 mg, Intramuscu lar, ONCE, 1 dose, On Thu11/29/24 at 1600, Routine [facility] dexamethaso ne sod phos PF injection 10 mg 11-29 20:15: 00 11-29 20:11 :00 No 10mg 10 mg, Intramuscu lar, ONCE, 1 dose, On Thu11/29/24 at 1515, 1 mL [facility] meloxicam 7.5 mg tablet 11-29 00:00: 00 Yes [id number] 7.5mg Take 1 tablet by mouth once daily as needed for Alternate with [place] for pain scale 4-6. [facility] HYDROcodone -acetaminop hen (NORCO) 10-325 mg tablet 1 tablet 2023-06 14:00: 00 06-13 13:23 :00 No 1{tbl} 1 tablet, Oral, ONCE, 1 dose, On Thu06/13/24 at 0800, AURELIANO [facility] HYDROcodone -acetaminop hen 5-325 mg tablet 2023-06 00:00: 00 06-13 00:00 :00 No [id number] 1{tbl} Take 1-2 tablets by mouth every 6 (six) hours as needed for Pain (scale 4-6). 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 Restricted medication : EDWIN HOLLIDAY [facility] Vital Signs Vital Name Observation Time Observation Value Comments Rhina gayle Systolic blood pressure 2025-03-27 13:14:00 178 mm[Hg] [facility] Diastolic blood pressure 2025-03-27 13:14:00 102 mm[Hg] [facility] Heart rate 2025-03-27 13:14:00 76 /min [facility] Body temperature 2025-03-27 13:14:00 36.61 [facility] Respiratory rate 2025-03-27 13:14:00 16 /min [facility] Body height 2025-03-27 13:14:00 170.2 cm [facility] Body weight 2025-03-27 13:14:00 81.647 kg [facility] BMI 2025-03-27 13:14:00 28.19 kg/m2 [facility] Oxygen saturation in Arterial blood by Pulse oximetry 2025-03-27 13:14:00 96 /min [facility] Systolic blood pressure 2025-03-08 09:23:00 148 mm[Hg] [facility] Diastolic blood pressure 2025-03-08 09:23:00 88 mm[Hg] [facility] Heart rate 2025-03-08 09:23:00 80 /[facility] 2025-03-08 09:23:00 36.61 [facility] Respiratory rate 2025-03-08 09:23:00 18 /min [facility] Oxygen saturation in Arterial blood by Pulse oximetry 2025-03-08 09:23:00 99 /min [facility] Body height 2025-03-08 07:33:00 170.2 cm [facility] Body weight 2025-03-08 07:33:00 81.647 kg [facility] BMI 2025-03-08 07:33:00 28.19 kg/m2 [facility] Systolic blood pressure 2025-03-06 20:22:00 153 mm[Hg] [facility] Diastolic blood pressure 2025-03-06 20:22:00 94 mm[Hg] [facility] Heart rate 2025-03-06 20:22:00 95 /min [facility] Body temperature 2025-03-06 20:22:00 36.61 [facility] Respiratory rate 2025-03-06 20:22:00 18 /min [facility] Oxygen saturation in Arterial blood by Pulse oximetry 2025-03-06 20:22:00 100 /min [facility] Body height 2025-03-06 19:37:00 170.2 cm [facility] Body weight 2025-03-06 19:37:00 81.647 kg [facility] BMI 2025-03-06 19:37:00 28.19 kg/m2 [facility] Systolic blood pressure 2025-03-04 10:00:00 142 mm[Hg] [facility] Diastolic blood pressure 2025-03-04 10:00:00 88 mm[Hg] [facility] Heart rate 2025-03-04 10:00:00 66 /min [facility] Body temperature 2025-03-04 10:00:00 36.89 [facility] Respiratory rate 2025-03-04 10:00:00 18 /min [facility] Oxygen saturation in Arterial blood by Pulse oximetry 2025-03-04 10:00:00 98 /min [facility] Body height 2025-03-04 08:36:00 170.2 cm [facility] Body weight 2025-03-04 08:36:00 82.056 kg [facility] BMI 2025-03-04 08:36:00 28.33 kg/m2 [facility] Systolic blood pressure 2025-03-03 02:05:00 157 mm[Hg] [facility] Diastolic blood pressure 2025-03-03 02:05:00 94 mm[Hg] [facility] Heart rate 2025-03-03 02:05:00 72 /min [facility] Body temperature 2025-03-03 02:05:00 36.78 [facility] Respiratory rate 2025-03-03 02:05:00 24 /min [facility] Oxygen saturation in Arterial blood by Pulse oximetry 2025-03-03 02:05:00 97 /min [facility] Body height 2025-03-02 22:43:00 170.2 cm [facility] Body weight 2025-03-02 22:43:00 84.369 kg [facility] BMI 2025-03-02 22:43:00 29.13 kg/m2 [facility] Systolic blood pressure 2024-12-01 05:04:00 160 mm[Hg] [facility] Diastolic blood pressure 2024-12-01 05:04:00 89 mm[Hg] [facility] Heart rate 2024-12-01 05:04:00 76 /min [facility] Body temperature 2024-12-01 05:04:00 36.5 [facility] Respiratory rate 2024-12-01 05:04:00 18 /min [facility] Body height 2024-12-01 05:04:00 170.2 cm [facility] Body weight 2024-12-01 05:04:00 84.369 kg [facility] BMI 2024-12-01 05:04:00 29.13 kg/m2 [facility] Oxygen saturation in Arterial blood by Pulse oximetry 2024-12-01 05:04:00 97 /min [facility] Systolic blood pressure 2024-11-29 20:18:10 147 mm[Hg] [facility] Diastolic blood pressure 2024-11-29 20:18:10 94 mm[Hg] [facility] Heart rate 2024-11-29 20:18:10 76 /min [facility] Body temperature 2024-11-29 20:18:10 36.78 [facility] Respiratory rate 2024-11-29 20:18:10 16 /min [facility] Oxygen saturation in Arterial blood by Pulse oximetry 2024-11-29 20:18:10 97 /min [facility] Body height 2024-11-29 19:27:00 170.2 cm [facility] Body weight 2024-11-29 19:27:00 84.369 kg [facility] BMI 2024-11-29 19:27:00 29.13 kg/m2 [facility] Systolic blood pressure 2024-06-13 12:11:00 180 mm[Hg] [place] [facility] Diastolic blood pressure 2024-06-13 12:11:00 106 mm[Hg] [place] [facility] Heart rate 2024-06-13 12:11:00 77 /min [facility] Body temperature 2024-06-13 12:11:00 36.39 [facility] Respiratory rate 2024-06-13 12:11:00 24 /min [facility] Body height 2024-06-13 12:11:00 170.2 cm [facility] 2024-06-13 12:11:00 84.913 kg [facility] BMI 2024-06-13 12:11:00 29.32 kg/m2 [facility] Oxygen saturation in Arterial blood by Pulse oximetry 2024-06-13 12:11:00 99 /min [facility] Systolic blood pressure 2024-03-18 09:37:00 147 mm[Hg] [place] [facility] Diastolic blood pressure 2024-03-18 09:37:00 100 mm[Hg] [facility] Heart rate 2024-03-18 09:37:00 76 /min [facility] Body temperature 2024-03-18 09:37:00 36.78 [facility] Respiratory rate 2024-03-18 09:37:00 16 /min [facility] Body height 2024-03-18 09:37:00 170.2 cm [facility] Body weight 2024-03-18 09:37:00 88.451 kg [facility] BMI 2024-03-18 09:37:00 30.54 kg/m2 [facility] Oxygen saturation in Arterial blood by Pulse oximetry 2024-03-18 09:37:00 99 /min [place] [facility] Procedures Procedure Date / Time Performed Performing Clinicia n Source XR CHEST 2 VW 2025-03-03 00:36:42 Billy Rader [facility] BASIC METABOLIC PANEL (NA, K, CL, CO2, GLUCOSE, BUN, CREATININE, CA) 2025-03-02 23:41:00 Billy Rader [facility] CBC WITH DIFF 2025-03-02 23:41:00 Billy Rader [facility] N-TERMINAL PRO-BNP 2025-03-02 23:41:00 Billy Rader [facility] TROPONIN I 2025-03-02 23:41:00 Billy Rader [facility] Encounters Start Date/Time End Date/Time Encounter Type Admission Type Attending [facility] Facility Care Department Encounter ID Source 2023-04-30 10:00:00 Inpatient Fredis Asencio [facility] RAD [id number] 81 [facility] 2025-03-27 16:28:00 2025-03-27 16:28:00 Emergency X BILLY RADER ERICCA [facility] ERT [id number] [facility] 2025-03-27 08:25:00 2025-03-27 11:08:00 Emergency X Billy Rader [facility] AT [facility] 1.2.840.114 350.1.13.10 4.2.7.2.686 [id number] [facility] 2025-03-08 02:37:00 2025-03-08 04:24:00 Emergency X EDWIN HOLLIDAY WAKILI [facility] ERT [id number] [facility] 2025-03-06 14:39:00 2025-03-06 15:29:00 Emergency X North Wei [facility] AT [facility] 1.2.840.114 350.1.13.10 4.2.7.2.686 [id number] [facility] 2025-03-04 03:48:00 2025-03-04 05:23:00 Emergency X Laz Bernal [facility] AT [facility] 1.2.840.114 350.1.13.10 4.2.7.2.686 [id number] [facility] 2025-03-02 17:46:00 2025-03-02 21:11:00 Emergency X BILLY RADER ERICCA [facility] ERT [id number] [facility] 2025-02-27 06:14:00 2025-02-27 06:14:00 Outpatient Miguel Curry HCAVA ANDI [id number] 57 [facility] 2024-12-01 00:07:00 2024-12-01 01:10:00 Emergency X MIKHAIL PUGH PAMALA [facility] ERT [id number] [facility] 2024-11-29 14:30:00 2024-11-29 15:57:00 Emergency X Billy Rader [facility] AT [facility] 1.2.840.114 350.1.13.10 4.2.7.2.686 [id number] [facility] 2024-11-05 07:42:00 2024-11-05 09:37:00 Emergency [facility] [id number] 27 [facility] 2024-06-13 06:16:00 2024-06-13 07:28:00 Emergency North Wei [facility] AT [facility] 1.2.840.114 350.1.13.10 4.2.7.2.686 [id number] [facility] 2024-03-18 04:48:00 2024-03-18 05:29:00 Emergency X EDWIN HOLLIDAY WAKILI [facility] ERT [id number] [facility] 2024-03-18 04:48:00 2024-03-18 05:29:00 Emergency Edwin Holliday [facility] AT [facility] 1.2.840.114 350.1.13.10 4.2.7.2.686 [id number] [facility] 2022-07-07 09:32:00 2022-07-07 09:32:00 Outpatient Fredis Asencio RAD [id number] 58 [facility] Results Test Description Test Time [...] and soft tissues: No acute abnormality detected. [facility] [id number] 00:20:49* Test Item Value Reference Range Interpretation Comme nts TROPONIN I (test code = 5529439906) 0.004 ng/mL <=0.034 DEVAN (test code = [...] of biotin. Lab Interpretation (test code = 11228-4) [id number] 00:18:07* Test Item Value Reference Range Interpretation Comme nts NT-proBNP (test code = 36182-5) 943 pg/mL <=125 H DEVAN (test code = DEVAN) Positive: Heart Failure Likely Lab Interpretation (test code = 19765-9) Abnormal [facility] METABOLIC PANEL (NA, K, CL, CO2, GLUCOSE, BUN, CREATININE, CA)2025-03-03 00:08:45* Test Item Value Reference Range Interpretation Comme nts NA (test code = 6271684268) 138 mmol/L 135-145 K (test code = 6621974114) 3.7 mmol/L 3.5-5.0 CL (test code = 4538833654) 110 mmol/L 98-108 H CO2 TOTAL (test code = 2576251712) 22 mmol/L 23-31 L AGAP (test code = 1248601894) 6 2-16 BUN (test code = 9030968339) 28 mg/dL 7-23 H GLUCOSE (test code = 4985234880) 102 mg/dL 70-110 CREATININE (test code = 2160-0) 0.95 mg/dL 0.60-1.25 CALCIUM (test code = 9582047395) 8.9 mg/dL 8.6-10.6 eGFR (test code = 94975-6) 92.2 mL/min/1.73m2 CKD-EPI eGFR (2020). Assuming creatinine has been stable day-to-day for at least three months, the eGFR indicates Category G1 (>= 90 mL/min/1.73 m2) Lab Interpretation (test code = 32714-0) Abnormal [facility] METABOLIC [id number] 14:55:00* Test Item Value Reference Range Interpretation [...] = CA) 9.6 mg/dL 7.6-10.9 N PROTHROMBIN [id number] 14:52:00* Test Item Value Reference Range Interpretation [...] patients with mechanicalprosthetic heart valves. THROMBOPLASTIN TIME [id number] 14:52:00* Test Item Value Reference Range Interpretation Comme nts THROMBOPLASTIN TIME PARTIAL (test code = PTT) 27.6 SECONDS 25.9-37.7 N CBC W/AUTO [id number] 14:18:00* Test Item Value Reference Range Interpretation [...] code = NRBC#) 0.00 K/mm3 0.00-0.20 N [facility] RETROPERITONEAL [id number] 11:20:00 [facility] AZLEName:HI PEREZ : 1965 Sex: M Mills: [facility] [address]: REG -- Name: HI PEREZ [facility] : 1965 Age/S: 56/M [address] Unit #: [id number] Loc: [place], [place] [address] Phys: Fredis Hilliard MD Acct: [id number] Dis Date: Status: REG CLI PHONE #: [phone] Exam Date: 07/07/2022 1014 FAX #: [phone] Reason: ESSENTIAL PRIMARY HTN EXAMS: CPT CODE: [id number] US RETROPERITONEAL COMPLETE 57915 Retroperitoneal ultrasound with duplex imaging. Location: H19 [...] significant hematoma stenosis of the renal arteries. Electr onically Signed by CECELIA CHEW MD on 07/07/2022 at 1120 Reported and signed by: CECELIA CHEW MD PAGE 1 Signed Report (CONTINUED) Mills: [facility] St: REG Name: HI PEREZ [facility] : 1965 Age/S: 56/M [address] [facility] Unit #: [id number] Loc: [place], [place] [address] Phys: Fredis Hilliard MD Acct: [id number] Dis Date: Status: REG CLI PHONE #: [phone] Exam Date: 07/07/2022 1014 FAX #: [phone] Reason: ESSENTIAL PRIMARY HTN EXAMS: CPT CODE: [id number] US RETROPERITONEAL COMPLETE 09133 (Continued) Facility ACR Accreditation for Ultrasound - July 2011 CC: Fredis Hilliard MD Technologist: GAGANDEEP PASCUAL, RVS Transcribed Date/Time/By: 07/07/2022 (1120) : By: [email or web address] Orig Print D/T: S: 07/07/2022 (1129) PAGE 2 Signed Report- DUP AO/IVC/IV/BPG LTD 2022-07-07 11:20:00 [facility] AZLEName:HI PEREZ : 1965 Sex: M Mills: [facility] St: REG -- Name: HI PEREZ [facility] : 1965 Age/S: 56/M [address] Unit #: [id number] Loc: [place], [place] [address] Phys: Fredis Hilliard MD Acct: [id number] Dis Date: Status: REG CLI PHONE #: [phone] Exam Date: 07/07/2022 1014 FAX #: [phone] Reason: ESSENTIAL PRIMARY HTN EXAMS: CPT CODE: [id number] DUP AO/IVC/IV/BPG LTD 73701 Retroperitoneal ultrasound with duplex imaging. Location: H19 [...] CHEW MD PAGE 1 Signed Report (CONTINUED) Mills: [facility] St: REG Name: HI PEREZ [facility] : 1965 Age/S: 56/M [address] Unit #: [id number] Loc: .[place], [place] [address] Phys: Fredis Hilliard MD Acct: [id number] Dis Date: Status: REG CLI PHONE #: [phone] Exam Date: 07/07/2022 1014 FAX #: [phone] Reason: ESSENTIAL PRIMARY HTN EXAMS: CPT CODE: [id number] DUP AO/IVC/IV/BPG LTD 56480 (Continued) Facility ACR Accreditation for Ultrasound - July 2011 CC: Fredis Hilliard MD Technologist: GAGANDEEP PASCUAL RVRhina Transcribed Date/Time/By: 07/07/2022 (1120) : By: [email or web address] Print D/T: S: 07/07/2022 (1123) PAGE 2 Signed Report- VEIN REFLUX [id number] 11:48:00 Mills: [facility] St: PRE [facility] 1965 Age/S: 53/M [address] Unit #: [id number] Loc: .[place], [place] [address] Phys: David James MD Acct: [id number] Dis Date: Status: PRE CLI PHONE #: [phone] Exam Date: 05/04/2019 1110 FAX #: [phone] Reason: VENOUS INSUFFICIENSCY EXAMS: CPT CODE: [id number] VEIN REFLUX STUDY 14204 BILATERAL LOWER EXTREMITIES VENOUS DUPLEX INCLUDING ADDITIONAL EVALUATION FOR VENOUS INSUFFICIENCY INDICATION: Venous insufficiency. COMPARISON: No prior imaging. TECHNIQUE: Real-time grayscale, color and pulsed Dopplerevaluation. FINDINGS: The bilateral common femoral, superficial femoral, and popliteal veins demonst rate normal compressibility, normal phasic venous flow, and normal response to augmentation. There is no visible thrombus , nor sign of significant venous insufficiency on the spectral Doppler images. The bilateral saphenous veins are patent without thrombosis. On the RIGHT, in the upright positionthe greater and lesser saphenous veins were evaluated [...] no significant reflux - Distal calf: 3.9 mm,no significant reflux Lesser saphenous vein - Upper calf: 2.3 mm, no significant reflux - Mid calf:2.3 mm, no significant reflux - Distal calf: [...] significant reflux PAGE 1 Signed Report (CONTINUED) Mills: [facility] St: PRE Name: HI PEREZ [facility] : 1965 Age/S: 53/M [address] [facility] Unit #: [id number] Loc: [place], [place] [address] Phys: David James MD Acct: [id number] Dis Date: Status: PRE CLI PHONE #: [phone] Exam Date: 05/04/2019 1110 FAX #: [phone] Reason: VENOUS INSUFFICIENSCY EXAMS: CPT CODE: [id number] VEIN REFLUX STUDY 51597 (Continued) - Distal thigh: 3.1 mm, no [...] maximal diameter. No surrounding inflammatory changes. This isavascular on the color Doppler images. IMPRESSION: 1. No acute or chronic venous thrombosis involving the femoral, popliteal and saphenous veins. 2. No sign of significant venous insufficiency. 3. Small Staton's / popliteal cyst behind the left knee. at 1140 Reported and signed by: Forrest Godfrey MD Facility ACR Accreditation for Ultrasound - July 2011 CC: Clint Michelle; David James MD Technologist: Susan Damon RT(R)RDMS,RVT; ADALBERTO MURPHY RDMS Transcribed Date/Time/By: 05/09/2019 (1143) : By: [email or web address] Orig Print D/T: S: 05/09/2019 (8610) PAGE 2 Signed Report - MRI L-SPINE W/O [id number] 10:18:00FAX: Gurjit Quinn [phone] Camps: [facility] St: REG FAX: Jordan Ocampo MD [phone] -- Name: HI PEREZ [facility] : 1965 Age/S: 53/M [address] [facility] Unit #: [id number]: VR.SDS [place], [place] [address] Phys: Jordan Novoa MD Acct: [id number] Dis Date: Status: REG SDC PHONE #: [phone] Exam Date: 12/28/2018933 FAX #: [phone] Reason: LUMBAR STENOSIS EXAMS: CPT CODE: [id number] MRI L-SPINE W/O CONT 08800 EXAM: MRI LUMBAR SPINE WITHOUT CONTRAST INDICATION: LUMBAR STENOSIS COMPARISON: CT dated June 30, 2016 TECHNIQUE: Multiplanar, multisequence noncontrast MR imaging of the lumbar spine. IV contrast: None. FINDINGS: There are 5 nonrib-bearing lumbar vertebra. There are postsurgical changes of prior laminectomy and posterior fusion of L4-S1 withpedicle screws and rods. There are disc spacers noted in place. There is anterior fusion hardware noted as well. The vertebral bodies are normal in height and signal intensity. There is minimal retrolisthesis of L3 over L4. The facet joints and spinous processes are in normal alignment. There is diffuse facet joint arthropathy. There is loss of the intervertebral disc height throughout the lumbarspine. The conus medullaris terminates at T12-L1 and is normal in signal intensity and caliber. Thecauda equina is normal. The posterior paraspinal soft [...] 1 Signed Report (CONTINUED) FAX: Gurjit Quinn [phone] Camps: MARY St: REG FAX: Jordan Ocampo MD [phone] Name: HI PEREZ [facility] : 1965 Age/S: 53/M [address]a Sebastien Baca [facility] Unit #: [id number] Loc: [place], [place] [address] Phys: Jordan Novoa MD Acct: [id number] Dis Date: Status: REG SDC PHONE #: [phone] Exam Date: 12/28/2018 09 FAX #: [phone] Reason: LUMBAR ST ENOSIS EXAMS: CPT CODE: [id number] MRI L-SPINE W/O CONT 83045 (Continued) Discogenic disease and facet joint arthropathy throughout the lumbar spine. Minimal retrolisthesis of L3 over L4 with mild spinal canal stenosis. Moderate right neuroforaminal stenosis at L3-L4. Postsurgical changes at L4-S1. LOCATION: A 1 at 1018 Reported and signed by: SHEREE HALE M.D. CC: Gurjit Cline MD; Jordan Novoa MD Technologist:Fredis Talley RT(R)(CT)(MRI)ARRT Transcribed Date/Time/By: 12/28/2018 (1018) :[email or web address] Orig Print D/T: S: 12/28/2018 (1023) PAGE 2 Signed ReportBASIC METABOLIC [id number] 11:07:00 * Test Item Value Reference Range Interpretation Comme [...] CA) 9.2 mg/dL 7.8-10.9 N CBC W/O [id number] 10:50:00* Test Item Value Reference Range Interpretation [...] 9.4-12.4 N Notes Date/Time Note Provider Source 2025-03-27 10:00:00 Pt not seen in lobby to discharge. Edda Mcgee RN [facility] 2025-03-27 08:21:36 Patient came in with complaints of chronic pain to low back since 21 years, got worse since the past 2-3 days. States he also has arthritis pain to his bilateral knees and legs. States whenever he have this pain he receives Morphine and steroid shots from his doctor's clinic. States he took oxycodone today around 3AM but no relief. Denies urinary symptoms. PSHx: Laminectomy, Lumbar Fusion Sherine Kennedy RN [facility] 2025-03-08 02:32:59 C/o chronic back pain and chronic bilateral knee pain. Takes oxycodone, gabapentin, methylprednisolone, flexeril Estelita Mark RN [facility] 2025-03-06 14:35:00 Hi Perez is a 59 year old male arrived to ED via personal means with CC of lower back and genaro knee pain since 11am. Hx of arthritis, taking oxycodone but not helping today. Seen by ortho today but unable to do injections till insurance approval. Has a PCP follow up on Thursday scheduled. 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 family, hinduism, pain of ), that stopped you from [...] Psychiatry provider in 1 week or less. [facility] EMERGENCY PHYSICIAN STAFF [facility] 2025-03-04 03:29:24 Arrives to ED ambulatory. C/O [...] plan to hurt himself. Keiry Landon RN [facility] 2025-03-02 21:10:02 Pt given printed and verbal [...] in no apparent distress, Tanya Edwards RN [facility] 2025-03-02 17:44:44 Patient reports chronic back pain and right knee pain that is intolerable, as well as shortness of breath. Patient states that he has asbestos exposure. Denies chest pain, fevers. Presents vitally stable. HX: Von Willebrand's, asbestos exposure. Myesha Truong RN [facility] 2025-02-24 13:23:00 [phone], [address] PATIENT NAME: HI PEREZ JR ADMIT DATE: ACCOUNT NO: [id number] ROOM NO: AGE: 59 REPORT TYPE: ELECTROCARDIOGRAM SEX: M ADMITTING PHYSICIAN: ATTENDING PHYSICIAN:Miguel Calvin MD Order: [id number] Test Reason : PRE OP Test Date/Time [...] at 1039 PATIENT NAME: HI PEREZ JR [facility] 2024-12-01 01:08:09 Pt reported to ED registration pt wanted to leave. ERP notified. Augustin Boothe RN [facility] 2024-12-01 00:00:23 Pt feels like he is going through withdrawals, takes oxycodone for chronic pain but hasn't had any for 6 days. C/o tossing and turning, unable to relax, feeling jittery States he ran out faster than he should have because he has been taking extra Estelita Mark RN [facility] 2024-11-29 15:54:05 Patient is awake and alert, oriented x4, speech is clear and appropriate, ambulatory with a steady gait. Advised to seek medical attention for new/prolonged/worsening of symptoms. Respirations even and unlabored, no distress. Vielka Reyes RN [facility] 2024-11-29 14:27:44 Pt arrived ambulatory without assist. Pt c/o chronic "arthritis" pain that starts in knees and then travels up his back. Tanya Edwards RN [facility] 2024-11-05 08:06:00 [facility] EMERGENCY PROVIDER REPORT REPORT#:[id number] REPORT STATUS: Signed DATE:11/05/24 TIME: 805 PATIENT: HI PEREZ JR UNIT #: [id number] ROOM/BED: : 65 AGE: 58 SEX: M PCP PHYS: Fredis Hilliard MD SERVICE AUTHOR: Meche Campbell RESOLUTION REP REP SRV REP SRV TM: 08 * ALL edits or amendments must be made on the electronic/computer document * Meche Campbell 11/05/24805: HPI-Back Pain 40 and Over Free Text [...] 11/05 0854 O2 Delivery Room air 11/05 0854 Temp 36.8 11/05 0854 Pulse 77 11/05 [...] 0805 DC 11/05 Codeine Phosphate PO 11/05 805 0839 Ketorolac 60 MG X1ED STA 11/05 0805 DC 11/05 Tromethamine IM 11/05 08 0839 Patient Discharge Departure Vital Signs/Condition Vital Signs First Documented: Result Date Time Pulse Ox 90 11/05 0746 B/P 133/84 11/05 0746 B/P Mean 100.7 11/05 0746 Temp 36.7 11/05 0746 Pulse 82 / 0746 O2 Delivery Room air 11/05 0854 Resp 14 11/05 0854 Last Documented: Result Date Time Pulse Ox 99 11/05 0854 B/P 124/67 11/05 0854 O2 Delivery Room air 11/05 0854 Temp 36.8 11/05 0854 Pulse 77 11/05 [...] Saw Pt Alone I have reviewed the PA/RESOLUTION REP's note and plan of care. I was available for consultation as needed at all times during the patient's visit in the emergency department. I agree with the clinical impression, plan and disposition. at 0701 at 0724 [facility] #:[id number] END OF REPORT [facility] 2024-06-13 07:27:57 PT D/C home. GCS15, VS stable, no ataxia noted. Given one prescription (changed to [facility] pharmacy per pt request) and D/C paperwork. Pt ambulatroy at time of discharge. Pt educated on diagnosis, med usage, follow up care, s/s worsening condition. Pt verbalized understanding. Mcgee RN [facility] 2024-06-13 06:06:23 Pt ambulatory to triage for [...] of lumbar fusion and laminectomy and arthritis Kennedy RN [facility] 2024-03-18 05:13:37 Awake, alert oriented X4, respiratory [...] noted upon discharge Pt ambulated to the lobby with steady gait Leslie Hoover RN [facility] 2024-03-18 04:38:22 CC: Pt was prescribed oxycodone for lumbar fusion pain by . Pt states the PCP refilled his prescription, and he went to [facility] but pharmacist refused refill. HEB [...] all ext without difficulty, amb without assistance T [facility]
[2025-03-27] MEDS ORDERED: MORPHINE 4 MG/ML SYR ONE (17:30)
--- NOTE | 2025-03-27 17:36 | EDPHYS ---
Physician Documentation [facility] Name: Jim Maldonado Jr Age: 59 yrs Sex: Male : 1965 Arrival Date: 03/27/2025 Time: 17:15 Bed IW2 Private MD: ED Physician Dharmesh Alvarez HPI: 03/27 17:31 This 59 yrs old Male presents to ER via Ambulatory with complaints of Back kb Pain, Knee Pain. 17:32 Pt is a 59 year old male who presents for chronic low back pain and bilateral knee kb pain. States he is supposed to go to Dr Moreno's office tomorrow for Euflexa injections that should help his pain. States he takes oxycodone from pain management and it helps most of the time, but he gets breakthough pain at times. Denies any new injury. Historical: - Allergies: 17:26 PENICILLINS; me1 - PMHx: 17:26 Arthritis; chronic back pain; gastritis; T12; 03/16 (Unknown); Hypertensive disorder; me1 Rashi Willebrand Disease; - PSHx: 17:26 laminectomy; Spinal Fusion; me1 - Immunization history:: Adult Immunizations up to date. - Infectious Disease History:: Denies. - Social history:: Smoking status: Patient denies any tobacco usage or history of. ROS: 17:30 Constitutional: As per HPI kb Exam: 17:30 Constitutional: This is a well developed, well nourished patient who is awake, alert, kb and in no acute distress. Head/Face: Normocephalic, atraumatic. ENT: Moist Mucous membranes Cardiovascular: Regular rate Respiratory: Respirations even and unlabored. No increased work of breathing. Talking in full sentences Skin: Warm, dry with normal turgor. Normal color. MS/ Extremity: Pulses equal, no cyanosis. Neurovascular intact. Full, normal range of motion. Neuro: Awake and alert, GCS 15, oriented to person, place, time, and situation. Vital Signs: 17:22 BP 183 / 110; Pulse 84; Resp 16; Temp 98.2; Pulse Ox 99% ; Weight 81.65 kg; Height 5 me1 ft. 7 in. ; Pain 10/10; 17:44 BP 176 / 99; Pulse 86; Resp 15; Temp 98.2; Pulse Ox 99% ; me1 17:22 Body Mass Index 28.19 (81.65 kg, 170.18 cm) me1 17:22 Pain Scale: Adult me1 MDM: 17:25 Medical Screening Exam initiated kb 17:34 Differential diagnosis: arthritis, strain, sciatica, Herniated disc. Data reviewed: kb vital signs, nurses notes. Test considered but Not performed: X-ray: xray considered but pt denies any new pain, ambulatory with steady gait. Counseling: I had a detailed discussion with the patient and/or guardian regarding the historical points, exam findings, and any diagnostic results supporting the discharge/admit diagnosis, the need for outpatient follow up, a family practitioner, to return to the emergency department if symptoms worsen or persist or if there are any questions or concerns that arise at home. Administered Medications: 17:42 Drug: morphine IM 4 mg IM once Route: IM; Site: right deltoid; me1 17:42 Follow up: Response: No adverse reaction me1 Disposition Summary: 03/27/25 17:35 Discharge Ordered Notes: Location: Home kb Condition: Stable kb Diagnosis - Low back pain - acute on chronic(03/27/25 17:35) kb Followup: kb - With: Emergency Department - When: As needed - Reason: Worsening of condition Followup: kb - With: Private Physician - When: 2 - 3 days - Reason: Recheck today's complaints, Continuance of care, Re-evaluation by your physician Discharge Instructions: - Discharge Summary Sheet kb - Chronic Back Pain, [id number] kb Forms: - Medication Reconciliation Form kb - Antibiotic Education kb - Prescription Opioid Use kb - Patient Portal Instructions kb - Leadership Thank You Letter kb Signatures: Christin Chadwick FNP-C CALCULATION CLERK-Michelle Mclaughlin, RN RN me1 Corrections: (The following items were deleted from the chart) 17:26 17:26 PMHx: T12; 03/16 (Unknown); wa1 wa1 17:35 17:35 Low back pain kb kb
--- NOTE | 2025-03-27 17:36 | ER ---
Nurse's Notes [facility] Name: Jim Maldonado Jr Age: 59 yrs Sex: Male : 1965 Arrival Date: 03/27/2025 Time: 17:15 Bed IW2 Private MD: Diagnosis: Low back pain-acute on chronic Presentation: 03/27 17:22 Chief complaint: Patient states: upper back pain that radiates down bilateral arms, me1 lower back pain and bilateral knee pain. Takes oxycodone from pain management but it isnt effective for arthritis pain at this time. Insurance just approved EUFLEXA injections for knees that are being sent to Dr Moreno's office. Patient also has an appt on Apr [address] Isaacs for new back injury. Pain 03/31. Coronavirus screen: Vaccine status: Patient reports receiving the 2nd dose of the covid vaccine. Ebola Screen: No symptoms or risks identified at this time. Initial Sepsis Screen: Does the patient meet any 2 criteria? No. Patient's initial sepsis screen is negative. Does the patient have a suspected source of infection? No. Patient's initial sepsis screen is negative. Risk Assessment: Do you want to hurt yourself or someone else? Patient reports no desire to harm self or others. Onset of symptoms is unknown. 17:22 Method Of Arrival: Ambulatory [facility] 17:22 Acuity: MARCEL 4 me1 Triage Assessment: 17:27 General: Appears uncomfortable, well groomed, well developed, well nourished, Behavior me1 is calm, cooperative, appropriate for age, Reports upper back pain that radiates down bilateral arms, lower back pain and pain to bilateral knees. Pain: Complains of pain in back, right knee and left knee Pain does not radiate. Pain currently is 10 out of 10 on a pain scale. Quality of pain is described as aching, Pain began gradually, Is continuous. EENT: No signs and/or symptoms were reported regarding the EENT system. Neuro: Level of Consciousness is awake, alert, obeys commands, Oriented to person, place, time, situation, Appropriate for age. Cardiovascular: Patient's skin is warm and dry. Respiratory: Airway is patent Respiratory effort is even, unlabored, Respiratory pattern is regular, symmetrical. GI: No signs and/or symptoms were reported involving the gastrointestinal system. : No signs and/or symptoms were reported regarding the genitourinary system. Derm: Skin is intact, is healthy with good turgor, Skin is normal. Musculoskeletal: Reports pain in back, right knee and left knee. Historical: - Allergies: 17:26 PENICILLINS; me1 - PMHx: 17: Arthritis; chronic back pain; gastritis; T12; 03/16 (Unknown); Hypertensive disorder; me1 Rashi Willebrand Disease; - PSHx: 17: laminectomy; Spinal Fusion; me1 - Immunization history:: Adult Immunizations up to date. - Infectious Disease History:: Denies. - Social history:: Smoking status: Patient denies any tobacco usage or history of. Screenin:42 [facility] ED Fall Risk Assessment (Adult) History of falling in the last 3 months, me1 including since admission No falls in past 3 months (0 pts) Confusion or Disorientation No (0 pts) Intoxicated or Sedated No (0 pts) Impaired Gait No (0 pts) Mobility Assist Device Used No (0 pt) Altered Elimination No (0 pt) Score/Fall Risk Level 0 - 2 = Low Risk Maintained a safe environment, Provided non-skid footwear, Hourly rounding (assess needs \T\ fall precautionary measures) done. Abuse screen: Denies threats or abuse. Nutritional screening: No deficits noted. Tuberculosis screening: No symptoms or risk factors identified. Assessment: 17:42 General: See triage assessment. Neuro: Level of Consciousness is awake, alert, obeys me1 commands, Oriented to person, place, time, situation, Appropriate for age. Vital Signs: 17:22 BP 183 / 110; Pulse 84; Resp 16; Temp 98.2; Pulse Ox 99% ; Weight 81.65 kg; Height 5 me1 ft. 7 in. ; Pain 10/10; 17:44 BP 176 / 99; Pulse 86; Resp 15; Temp 98.2; Pulse Ox 99% ; me1 17:22 Body Mass Index 28.19 (81.65 kg, 170.18 cm) me1 17:22 Pain Scale: Adult nc1 ED Course: 17:18 Patient arrived in ED. al6 17:24 Christin Chadwick FNP-C [facility] kb 17:24 Dharmesh Alvarez MD is Attending Physician. kb 17:26 Triage completed. me1 17:27 Arm band placed on Patient placed in waiting room. me1 17:42 Patient has correct armband on for positive identification. Provided Education on: POC. me1 Verbalized understanding.. 17:42 No provider procedures requiring assistance completed. Patient did not have IV access me1 during this emergency room visit. Administered Medications: 17:42 Drug: morphine IM 4 mg IM once Route: IM; Site: right deltoid; me1 17:42 Follow up: Response: No adverse reaction me1 Medication: 17:42 VIS not applicable for this client. me1 Outcome: 17:35 Discharge ordered by . pk 17:45 Discharged to home ambulatory, me1 17:45 Condition: stable 17:45 Discharge instructions given to patient, Instructed on discharge instructions, follow up and referral plans. Demonstrated understanding of instructions, follow-up care, 17:45 Patient left the ED. me1 Signatures: Christin Chadwick, FIRE PREVENTION CHIEF-C FIRE PREVENTION CHIEF-CkMichelle Mascorro RN RN me1 Reyna Saavedra6 Corrections: (The following items were deleted from the chart) 17:26 17:26 PMHx: T12; 03/16 (Unknown); me1 me1 17:27 17:26 Arm band placed on Patient placed in an exam room, me1 me1
[2025-03-27 17:52] VITALS: BP 176/99; TEMP 98.2; O2SAT 99
== END 2025-03-27 17:45 | disposition home or self-care (01) ==
LOC: ER 17:15
DX: M54.50 Low back pain, unspecified (principal); Z88.0 Allergy status to penicillin
CPT/HCPCS: 96372; 99284

== ENCOUNTER 2025-03-30 10:28 | Emergency (ER) | payer OTHER ==
--- OUTSIDE RECORDS SUMMARY | 2025-03-30 10:32 | XMS REPORT | Continuity of Care Document ---
Author Name Unknown Address [address] [facility] [place] [address] [facility] Address [address] [facility] [address] [facility] [place] [address] Care Team Providers Care Optical Designer Name Role Phone Abdi Travis Primary Care Physician Fredis Hilliard Attending Clinician Unavailable Billy Reveles Attending Clinician [phone] EDWIN HOLLIDAY Attending Clinician Unavailable EDWIN HOLLIDAY Attending Clinician Unavailable [place] Wei MD Attending Clinician [phone] Laz Bernal DO Attending Clinician [phone] BILLY RADER Attending Clinician Unavailable BILLY RADER Attending Clinician Unavailable Miguel Calvin Attending Clinician UnavailMIKHAIL Banerjee Attending Clinician Unavailable MIKHAIL PUGH Attending Clinician Unavailable Ross Adame Attending Clinician Unavailable Edwin Holliday MD Attending Clinician [phone] Hernán Attending Clinician Unavail able Fredis Hilliard Admitting Clinician Unavailable BILLY RADER Admitting Clinician Unavailable Hernán Admitting Clinician Unavail able Payers Payer Name Policy Type Policy Number Effective Date Expirati on Date Source [place] [id number] 2017 00:00:00 Allergies, Adverse Reactions, Alerts Allergy Name Allergy Type Status Severity Reaction(s) Onset Date Inactive Date Treating Clinician Comments Source Penicill in Propensi ty to adverse reaction s Active Rash 03-18 00:00: 00 [facility] PENICILL IN DRUG INGREDI Active Rash 03-18 00:00: 00 [facility] Penicill ins DA Active [place] 2013-06 00:00: 00 [facility] Penicill ins DA Active [place] RASH 2013-06 00:00: 00 [facility] Social History Social Habit Start Date Stop Date Quantity Comments Source Sexual orientation U [facility] Sex assigned at 1965 00:00:00 1965 00:00:00 [facility] Smoking Status Start Date Stop Date Source Tobacco smoking consumption unknown [facility] Medications Ordered Medication Name Filled Medication Name Start Date Stop Date Current Medication? Ordering Clinician Indication Dosage Frequency Signature (SIG) Comments Components Source ketorolac (TORADOL) 30 mg/mL (1 mL) injection 30 mg 2024-06 15:00: 00 03-27 14:11 :00 No 30mg 30 mg, Intramuscu lar, ONCE, 1 dose, On Thu03/27/25 at 1000, Routine [facility] dexAMETHaso ne PF (DECADRON) 10 mg/mL injection 10 mg 2024-06 0 14:15: 00 03-27 14:11 :00 No 10mg 10 mg, Intramuscu lar, ONCE, 1 dose, On Thu03/27/25 at 0915, 1 mL [facility] ketorolac (TORADOL) 30 mg/mL (1 mL) injection 30 mg 03-08 09:30: 00 03-08 08:35 :00 No 30mg 30 mg, Slow IV Push, ONCE, 1 dose, On Thu03/08/25 at 0430, Routine [facility] methocarbam oL (ROBAXIN) injection 1,000 mg 03-08 09:15: 00 03-08 08:38 :00 No 1000mg 1,000 mg, Slow IV Push, Administer over 3-5 Minutes, ONCE, 1 dose, On Thu03/08/25 at 0415, Routine [facility] dexAMETHaso ne PF (DECADRON) 10 mg/mL injection 10 mg 03-08 08:30: 00 03-08 08:36 :00 No 10mg 10 mg, Intramuscu lar, ONCE, 1 dose, On Thu03/08/25 at 0330, 1 mL [facility] FENTanyl (PF) (SUBLIMAZE) injection 75 mcg 03-06 21:15: 00 03-06 20:22 :00 No 75ug 75 mcg, Intramuscu lar, ONCE, 1 dose, On Thu03/06/25 at 1615, AURELIANO [facility] morphine (2 mg/mL) injection 6 mg 03-04 10:00: 00 03-04 10:00 :00 No 6mg 6 mg, Slow IV Push, ONCE, 1 dose, On 03/04/25 at 0500, STAT [facility] dexAMETHaso ne PF (DECADRON) 10 mg/mL injection 8 mg 03-02 23:15: 00 03-02 23:42 :00 No 8mg 8 mg, Slow IV Push, ONCE, 1 dose, On Renetta 03/02/25 at 1815, 1 mL [facility] ondansetron (ZOFRAN (PF)) injection 4 mg 03-02 23:15: 00 03-02 23:45 :00 No 4mg 4 mg, Slow IV Push, ONCE, 1 dose, On Renetta 03/02/25 at 1815, Administer over 2-5 Minutes, 2 mL [facility] morpHINE (4 mg/mL) injection 4 mg 03-02 23:15: 00 03-02 23:42 :00 No 4mg 4 mg, Slow IV Push, ONCE, 1 dose, On Thu03/02/25 at 1815, STAT [facility] methylPREDN ISolone (MEDROL, REAL,) 4 mg tablets 03-02 00:00: 00 Yes [id number] Take by mouth SEE-INSTRU CTIONS. follow package directions [facility] ketorolac (TORADOL) injection 30 mg 11-29 21:00: 00 11-29 20:13 :00 No 30mg 30 mg, Intramuscu lar, ONCE, 1 dose, On Thu11/29/24 at 1600, Routine [facility] dexamethaso ne sod phos PF injection 10 mg 11-29 20:15: 00 11-29 20:11 :00 No 10mg 10 mg, Intramuscu lar, ONCE, 1 dose, On Thu11/29/24 at 1515, 1 mL [facility] meloxicam 7.5 mg tablet 11-29 00:00: 00 Yes [id number] 7.5mg Take 1 tablet by mouth once daily as needed for Alternate with [place] for pain scale 4-6. [facility] HYDROcodone -acetaminop hen (NORCO) 10-325 mg tablet 1 tablet 2023-06 14:00: 00 06-13 13:23 :00 No 1{tbl} 1 tablet, Oral, ONCE, 1 dose, On Thu06/13/24 at 0800, AURELIANO [facility] HYDROcodone -acetaminop hen 5-325 mg tablet 2023-06 00:00: 00 06-13 00:00 :00 No [id number] 1{tbl} Take 1-2 tablets by mouth every 6 (six) hours as needed for Pain (scale 4-6). 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 Restricted medication : EDWIN HOLLIDAY [facility] Vital Signs Vital Name Observation Time Observation Value Comments Rhina gayle Systolic blood pressure 2025-03-27 21:25:00 188 mm[Hg] [facility] Diastolic blood pressure 2025-03-27 21:25:00 94 mm[Hg] [facility] Heart rate 2025-03-27 21:25:00 90 /min [facility] Body temperature 2025-03-27 21:25:00 36.28 Magi [facility] Respiratory rate 2025-03-27 21:25:00 16 /min [facility] Body height 2025-03-27 21:25:00 170.2 cm [facility] Body weight 2025-03-27 21:25:00 81.647 kg [facility] BMI 2025-03-27 21:25:00 28.19 kg/m2 [facility] Oxygen saturation in Arterial blood by Pulse oximetry 2025-03-27 21:25:00 98 /min [facility] Systolic blood pressure 2025-03-27 13:14:00 178 mm[Hg] [facility] Diastolic blood pressure 2025-03-27 13:14:00 102 mm[Hg] [facility] Heart rate 2025-03-27 13:14:00 76 /min [facility] Body temperature 2025-03-27 13:14:00 36.61 Magi [facility] Respiratory rate 2025-03-27 13:14:00 16 /min [facility] Body height 2025-03-27 13:14:00 170.2 cm [facility] Body weight 2025-03-27 13:14:00 81.647 kg [facility] BMI 2025-03-27 13:14:00 28.19 kg/m2 [facility] Oxygen saturation in Arterial blood by Pulse oximetry 2025-03-27 13:14:00 96 /min [facility] Systolic blood pressure 2025-03-08 09:23:00 148 mm[Hg] [facility] Diastolic blood pressure 2025-03-08 09:23:00 88 mm[Hg] [facility] Heart rate 2025-03-08 09:23:00 80 /min [facility] Body temperature 2025-03-08 09:23:00 36.61 Magi [facility] Respiratory rate 2025-03-08 09:23:00 18 /min [facility] Oxygen saturation in Arterial blood by Pulse oximetry 2025-03-08 09:23:00 99 /min [facility] Body height 2025-03-08 07:33:00 170.2 cm [facility] Body weight 2025-03-08 07:33:00 81.647 kg [facility] BMI 2025-03-08 07:33:00 28.19 kg/m2 [facility] Systolic blood pressure 2025-03-06 20:22:00 153 mm[Hg] [facility] Diastolic blood pressure 2025-03-06 20:22:00 94 mm[Hg] [facility] Heart rate 2025-03-06 20:22:00 95 /min [facility] Body temperature 2025-03-06 20:22:00 36.61 Magi [facility] Respiratory rate 2025-03-06 20:22:00 18 /min [facility] Oxygen saturation in Arterial blood by Pulse oximetry 2025-03-06 20:22:00 100 /min [facility] Body height 2025-03-06 19:37:00 170.2 cm [facility] Body weight 2025-03-06 19:37:00 81.647 kg [facility] BMI 2025-03-06 19:37:00 28.19 kg/m2 [facility] Systolic blood pressure 2025-03-04 10:00:00 142 mm[Hg] [facility] Diastolic blood pressure 2025-03-04 10:00:00 88 mm[Hg] [facility] Heart rate 2025-03-04 10:00:00 66 /min [facility] Body temperature 2025-03-04 10:00:00 36.89 Magi [facility] Respiratory rate 2025-03-04 10:00:00 18 /min [facility] Oxygen saturation in Arterial blood by Pulse oximetry 2025-03-04 10:00:00 98 /min [facility] Body height 2025-03-04 08:36:00 170.2 cm [facility] Body weight 2025-03-04 08:36:00 82.056 kg [facility] BMI 2025-03-04 08:36:00 28.33 kg/m2 [facility] Systolic blood pressure 2025-03-03 02:05:00 157 mm[Hg] [facility] Diastolic blood pressure 2025-03-03 02:05:00 94 mm[Hg] [facility] Heart rate 2025-03-03 02:05:00 72 /min [facility] Body temperature 2025-03-03 02:05:00 36.78 Magi [facility] Respiratory rate 2025-03-03 02:05:00 24 /min [facility] Oxygen saturation in Arterial blood by Pulse oximetry 2025-03-03 02:05:00 97 /min [facility] Body height 2025-03-02 22:43:00 170.2 cm [facility] Body weight 2025-03-02 22:43:00 84.369 kg [facility] BMI 2025-03-02 22:43:00 29.13 kg/m2 [facility] Systolic blood pressure 2024-12-01 05:04:00 160 mm[Hg] [facility] Diastolic blood pressure 2024-12-01 05:04:00 89 mm[Hg] [facility] Heart rate 2024-12-01 05:04:00 76 /min [facility] Body temperature 2024-12-01 05:04:00 36.5 Magi [facility] Respiratory rate 2024-12-01 05:04:00 18 /min [facility] Body height 2024-12-01 05:04:00 170.2 cm [facility] Body weight 2024-12-01 05:04:00 84.369 kg [facility] BMI 2024-12-01 05:04:00 29.13 kg/m2 [facility] Oxygen saturation in Arterial blood by Pulse oximetry 2024-12-01 05:04:00 97 /min [facility] Systolic blood pressure 2024-11-29 20:18:10 147 mm[Hg] [facility] Diastolic blood pressure 2024-11-29 20:18:10 94 mm[Hg] [facility] Heart rate 2024-11-29 20:18:10 76 /min [facility] Body temperature 2024-11-29 20:18:10 36.78 Magi [facility] Respiratory rate 2024-11-29 20:18:10 16 /min [facility] Oxygen saturation in Arterial blood by Pulse oximetry 2024-11-29 20:18:10 97 /min [facility] Body height 2024-11-29 19:27:00 170.2 cm [facility] Body weight 2024-11-29 19:27:00 84.369 kg [facility] BMI 2024-11-29 19:27:00 29.13 kg/m2 [facility] Systolic blood pressure 2024-06-13 12:11:00 180 mm[Hg] [facility] Diastolic blood pressure 2024-06-13 12:11:00 106 mm[Hg] [facility] Heart rate 2024-06-13 12:11:00 77 /min [facility] Body temperature 2024-06-13 12:11:00 36.39 Magi [facility] Respiratory rate 2024-06-13 12:11:00 24 /min [facility] Body height 2024-06-13 12:11:00 170.2 cm [facility] Body weight 2024-06-13 12:11:00 84.913 kg [facility] BMI 2024-06-13 12:11:00 29.32 kg/m2 [facility] Oxygen saturation in Arterial blood by Pulse oximetry 2024-06-13 12:11:00 99 /min [facility] Systolic blood pressure 2024-03-18 09:37:00 147 mm[Hg] [facility] Diastolic blood pressure 2024-03-18 09:37:00 100 mm[Hg] [facility] Heart rate 2024-03-18 09:37:00 76 /min [facility] Body temperature 2024-03-18 09:37:00 36.78 Magi [facility] Respiratory rate 2024-03-18 09:37:00 16 /min [facility] Body height 2024-03-18 09:37:00 170.2 cm [facility] Body weight 2024-03-18 09:37:00 88.451 kg [facility] BMI 2024-03-18 09:37:00 30.54 kg/m2 [facility] Oxygen saturation in Arterial blood by Pulse oximetry 2024-03-18 09:37:00 99 /min [facility] Procedures Procedure Date / Time Performed Performing Clinicia n Source XR CHEST 2 VW 2025-03-03 00:36:42 Billy Rader [facility] BASIC METABOLIC PANEL (NA, K, CL, CO2, GLUCOSE, BUN, CREATININE, CA) 2025-03-02 23:41:00 Billy Rader [facility] CBC WITH DIFF 2025-03-02 23:41:00 Billy Rader [facility] N-TERMINAL PRO-BNP 2025-03-02 23:41:00 Billy Rader [facility] TROPONIN I 2025-03-02 23:41:00 Billy Rader [facility] Encounters Start Date/Time End Date/Time Encounter Type Admission Type Attending Clinicians Care Facility Care Department Encounter ID Source 2023-04-30 10:00:00 Inpatient Fredis Asencio KEAGAN RAD [id number] [address] [facility] 2025-03-27 16:28:00 2025-03-27 18:16:00 Emergency X Billy Rader [facility] 1.2.840.114 350.1.13.10 4.2.7.2.686 [id number] [facility] 2025-03-27 08:25:00 2025-03-27 11:08:00 Emergency X JavontomBilly Aga [facility] 1.2.840.114 350.1.13.10 4.2.7.2.686 [id number] [facility] 2025-03-08 02:37:00 2025-03-08 04:24:00 Emergency X EDWIN HOLLIDAY WAKILI [facility] ERT [id number] [facility] 2025-03-06 14:39:00 2025-03-06 15:29:00 Emergency X Eriberto North [facility] 1.2.840.114 350.1.13.10 4.2.7.2.686 [id number] [facility] 2025-03-04 03:48:00 2025-03-04 05:23:00 Emergency X Laz Bernal [facility] 1.2.840.114 350.1.13.10 4.2.7.2.686 [id number] [facility] 2025-03-02 17:46:00 2025-03-02 21:11:00 Emergency X JAVONTOM TOÑOBILLY LI [facility] ERT [id number] [facility] 2025-02-27 06:14:00 2025-02-27 06:14:00 Outpatient Miguel Curry ANDI [id number] 57 [facility] 2024-12-01 00:07:00 2024-12-01 01:10:00 Emergency X MIKHAIL PUGH PAMALA [facility] ERT [id number] [facility] 2024-11-29 14:30:00 2024-11-29 15:57:00 Emergency X Yowell, Ericca D [facility] 1.2.840.114 350.1.13.10 4.2.7.2.686 [id number] [id number] [facility] 2024-11-05 07:42:00 2024-11-05 09:37:00 Emergency Ross Gonzalez [facility] [id number] 27 [facility] 2024-06-13 06:16:00 2024-06-13 07:28:00 Emergency [place] Wei [facility] 1.2.840.114 350.1.13.10 4.2.7.2.686 [id number] [id number] [facility] 2024-03-18 04:48:00 2024-03-18 05:29:00 Emergency X EDWIN HOLLIDAY WAKILI [facility] ERT [id number] [facility] 2024-03-18 04:48:00 2024-03-18 05:29:00 Emergency Maik Hollidayangy Lantigua [facility] 1.2.840.114 350.1.13.10 4.2.7.2.686 [id number] [facility] 2022-07-07 09:32:00 2022-07-07 09:32:00 Outpatient ISSAC BabakFredis KEAGAN RAD [id number] 58 [facility] Results Test Description Test Time [...] and soft tissues: No acute abnormality detected. [id number] 00:20:49* Test Item Value Reference Range Interpretation Comme [facility] TROPONIN I (test code = 0330203430) 0.004 ng/mL <=0.034 DEVAN (test code = [...] of biotin. Lab Interpretation (test code = 13433-8) [facility] [id number] 00:18:07* Test Item Value Reference Range Interpretation Comme [facility] NT-proBNP (test code = 05816-1) 943 pg/mL <=125 H DEVAN (test code = DEVAN) Positive: Heart Failure Likely Lab Interpretation (test code = 65383-4) [facility] (NA, K, CL, CO2, GLUCOSE, BUN, CREATININE, CA)2025-03-03 00:08:45* Test Item Value Reference Range Interpretation Comme [facility] NA (test code = 6962038012) 138 mmol/L 135-145 K (test code = 7363186938) 3.7 mmol/L 3.5-5.0 CL (test code = 0291527104) 110 mmol/L 98-108 H CO2 TOTAL (test code = 6903140676) 22 mmol/L 23-31 L AGAP (test code = 9402492787) 6 2-16 BUN (test code = 0176519505) 28 mg/dL 7-23 H GLUCOSE (test code = 1375753724) 102 mg/dL 70-110 CREATININE (test code = 2160-0) 0.95 mg/dL 0.60-1.25 CALCIUM (test code = 3164939996) 8.9 mg/dL 8.6-10.6 eGFR (test code = 34548-3) 92.2 mL/min/1.73m2 CKD-EPI eGFR (2021). Assuming creatinine has been stable day-to-day for at least three months, the eGFR indicates Category G1 (>= 90 mL/min/1.73 m2) Lab Interpretation (test code = 78685-4) Abnormal [facility] METABOLIC [id number] 14:55:00* Test Item Value Reference Range Interpretation [...] calculation forGFR is based on the CKD-EPI (2021) calculation. This formulais race indifferent and is the recommended formula for GFRby the National Kidney Foundation for Adults.The GFR will not calculate if the sex is unknown or if thepatient's age is <18 years. CREATININE (test code = CREAT) 0.8 mg/dL 0.6-1.0 N CALCIUM (test code = CA) 9.6 mg/dL 7.6-10.9 N PROTHROMBIN [id number] 14:52:00* Test Item Value Reference Range Interpretation [...] patients with mechanicalprosthetic heart valves. THROMBOPLASTIN TIME [id number] 14:52:00* Test Item Value Reference Range Interpretation Comme nts THROMBOPLASTIN TIME PARTIAL (test code = PTT) 27.6 SECONDS 25.9-37.7 N CBC W/AUTO [id number] 14:18:00* Test Item Value Reference Range Interpretation [...] = NRBC#) 0.00 K/mm3 0.00-0.20 N - US RETROPERITONEAL [id number] 11:20:00 [facility] 1965 Sex: M [facility] St: REG -- Name: JIM PEREZ [facility] : 1965 Age/S: 56/M [address] [facility] Unit #: [id number] Loc: [place], [place] [address] Phys: Fredis Hilliard MD Acct: [id number] DisDate: Status: REG CLI PHONE #: [phone] Exam Date: 07/07/2022 1014 FAX #: [phone] Reason: ESSENTIAL PRIMARY HTN EXAMS: CPT CODE: [id number] US RETROPERITONEAL COMPLETE 94473 Retroperitoneal ultrasound with duplex imaging. Location: H19 [...] CHEW MD PAGE 1 Signed Report (CONTINUED) [facility] St: REG Name: ERICAJIM [facility] : 1965 Age/S: 56/M [address] [place] [address] [facility] Unit #: [id number] Loc: [place], [place] [address] Phys: Fredis Hilliard MD Acct: [id number] Dis Date: Status: REG CLI PHONE #: [phone] Exam Date: FAX #: [phone] Reason: ESSENTIAL PRIMARY HTN EXAMS: CPT CODE: [id number] US RETROPERITONEAL COMPLETE 94086 (Continued) Facility ACR Accreditation for Ultrasound - July 2011 CC: Fredis Hilliard MD Technologist: GAGANDEEP PASCUAL, RVS Transcribed Date/Time/By: 07/07/2022 (1120) : By: [email or web address] Orig Print D/T: S: 07/07/2022 (3132) PAGE 2 Signed Report- DUP AO/IVC/IV/BPG LTD 2022-07-07 11:20:00 [facility] 1965 Sex: M [facility] St: REG -- Name: JIM PEREZ [facility] : 1965 Age/S: 56/M [address] [facility] Unit #: [id number] Loc: [place] [address] Phys: Fredis Hilliard MD Acct: [id number] Dis Date: Status: REG CLI PHONE #: [phone] Exam Date: 07/07/2022 1014 FAX #: [phone] Reason: ESSENTIAL PRIMARY HTN EXAMS: CPT CODE: [id number] DUP AO/IVC/IV/BPG LTD 17548 Retroperitoneal ultrasound with duplex imaging. Location: H19 [...] MD PAGE 1 S igned Report (CONTINUED) [place] St: REG Name: JIM PEREZ [facility] : 1965 Age/S:56/M [address] [place] [address] Unit #: [id number] Loc: [place], [place] [address] Phys: Fredis Hilliard MD Acct: [id number] Dis Date: Status: REG CLI PHONE #: [phone] Exam Date: 07/07/2022 1014 FAX #: [phone] Reason: ESSENTIAL PRIMARY HTN EXAMS: CPT CODE: [id number] DUP AO/IVC/IV/BPG LTD 47419 (Continued) Facility ACR Accreditation for Ultrasound - July 2011 CC: Fredis Hilliard MDTechnologist: CHARI LEE Transcribed Date/Time/By: 07/07/2022 (1120) : By: [email or web address] Orig Print D/T: S: 07/07/2022 (7705) PAGE 2 Signed Report- VEIN REFLUX [id number] 11:48:00 [facility] St: PRE Name: JIM PEREZ [facility] : 1965 Age/S: 53/M [address] [facility] Unit #: [id number] Loc: [place], [place] [address] Phys: David Jaems MD Acct: [id number] Dis Date: Status: PRE CLI PHONE #: [phone] Exam Date: 05/04/2019 1110 FAX #: [phone] Reason: VENOUS INSUFFICIENSCY EXAMS: CPT CODE: [id number] VEIN REFLUX STUDY 99174 BILATERAL LOWER EXTREMITIES VENOUS DUPLEX INCLUDING ADDITIONAL [...] the spectral Doppler evaluation are: Greater saphenous vein- Upper thigh: 4.6 mm, no significant reflux [...] - Mid thigh: 3.9 mm, no significant refluxPAGE 1 Signed Report (CONTINUED) [place] St: PRE Name: JIM PEREZ [facility] : 1965 Age/S: 53/M [address] [facility] Unit #: [id number] Loc: [place], [place] [address] Phys: David James MD Acct: [id number] Dis Date: Status: PRE CLI PHONE #: [phone] Exam Date: 05/04/2019 1110 FAX #: [phone] Reason: VENOUS INSUFFICIENSCY EXAMS: CPT CODE: [id number] VEIN REFLUX STUDY 32267 (Continued) - Distal thigh: 3.1 mm, no [...] MURPHY RDMS Transcribed Date/Time/By: 05/09/2019 (1143) : By:[email or web address] Orig Print D/T: S: 05/09/2019 (9103) PAGE 2 Signed Report- MRI L-SPINE W/O [id number] 10:18:00FAX: Gurjit Quinn [phone] Camps: MARY St: REG FAX: Jordan Ocampo MD [phone] - Name: ERICAJIM [facility] : 1965 Age/S: 53/M [address] [facility] Unit #: [id number] Loc: [place] [address] Phys: Jordan Novoa MD Acct: [id number] Dis Date: Status: REG [facility] PHONE #: [phone] Exam Date: 12/28/2018 0934 FAX #: [phone] Reason: LUMBAR STENOSISEXAMS: CPT CODE: [id number] MRI L-SPINE W/O CONT 76504 EXAM: MRI LUMBAR SPINE WITHOUT CONTRAST INDICATION: [...] neuroforaminal stenosis. L3-L4: Minimal retrolisthesis with pseudobulge measuring6 mm. Mild spinal canal stenosis. Facet joint hypertrophy with moderate right and mild left neuroforaminal stenosis. L4-L5: Postsurgical changes. No spinal canal or neuroforaminal stenosis. L5-S1: Postsurgical changes. No spinal canal or neuroforaminal stenosis. IMPRESSION: PAGE 1 Signed Report (CONTINUED) FAX: Gurjit Quinn [phone] Camps: MARY St: REG FAX: Jordan Ocampo MD [phone] Name: JIM PEREZ [facility] : 1965 Age/S: 53/M [address] [facility] Unit #: [id number] Loc: [place], [place] [address] Phys: Jordan Novoa MD Acct: [id number] Dis Date: Status: REG [facility] PHONE #: [phone] Exam Date: 12/28/2018 0934 FAX #: [phone] Reason: LUMBAR S TENOSIS EXAMS: CPT CODE: [id number] MRI L-SPINE W/O CONT 41056 (Continued) Discogenic disease and facet joint arthropathy throughout the lumbar spine. Minimal retrolisthesis of L3 over L4 with mild spinal canal stenosis. Moderate right neuroforaminal stenosis at L3-L4. Postsurgical changes at L4-S1. LOCATION: A 1 at 1018 Reported and signed by: SHEREE HALE M.D. CC: Gurjit Cline MD; Jordan Novoa MD Technologist: Fredis Talley RT(R)(CT)(MRI)ARRT Transcribed Date/Time/By: 12/28/2018 (5008) :16 Orig Print D/T: S: 12/28/2018 (7887) PAGE 2 Signed ReportBASIC METABOLIC [id number] 11:07:00 * Test Item Value Reference Range [...] CA) 9.2 mg/dL 7.8-10.9 N CBC W/O [id number] 10:50:00* Test Item Value Reference Range Interpretation [...] N Notes Date/Time Note Provider Source 2025-03-27 17:38:00 Pt called from [facility]; no answer at this time. Tanya Edwards RN [facility] 2025-03-27 16:53:36 Called pt. From [facility]; no answer; registration reports pt. Left the building; will attempt again Hillary Andrews RN [facility] 2025-03-27 16:23:10 Patient arrived ambulatory to ED c/o back pain. Patient was seen here earlier today and states the pain won't subside. Requesting Fentanyl patch. Shanel Srivastava RN [facility] 2025-03-27 10:00:00 Pt not seen in [facility] to discharge. Edda Mcgee RN [facility] 2025-03-27 08:21:36 Patient came in with complaints [...] PSHx: Laminectomy, Lumbar Fusion Sherine Kennedy RN [facility] 2025-03-08 02:32:59 C/o chronic back pain and chronic bilateral knee pain. Takes oxycodone, gabapentin, methylprednisolone, flexeril Estelita Mark RN [facility] 2025-03-06 14:35:00 Jim Perez is a 59 year old male arrived to ED via personal means with CC of lower back and genaro knee pain since 11am. Hx of arthritis, taking oxycodone but not helping today. Seen by ortho today but unable to do injections till insurance approval. Has a PCP follow up on Thursday scheduled. Debi Martini RN [facility] 2025-03-04 05:23:02 Pt given printed and [...] in no apparent distress, Callie Carver RN [facility] 2025-03-04 04:37:26 SAFE-T Protocol with C-SSRS (Stella Risk and Protective Factors) - Recent Step [...] pain or other acute medical problem (e.g. [employer] disorders) Access to lethal methods: (P) No [...] there things, anyone or anything (e.g. family, zoroastrian, pain of ), that stopped you from [...] Psychiatry provider in 1 week or less. [facility] EMERGENCY PHYSICIAN STAFF [facility] 2025-03-04 03:29:24 Arrives to ED ambulatory. [...] plan to hurt himself. Keiry Landon RN [facility] 2025-03-02 21:10:02 Pt given printed and [...] in no apparent distress, Tanya Edwards RN [facility] 2025-03-02 17:44:44 Patient reports chronic back pain and right knee pain that is intolerable, as well as shortness of breath. Patient states that he has asbestos exposure. Denies chest pain, fevers. Presents vitally stable. HX: Von Willebrand's, asbestos exposure. Myesha Truong RN [facility] 2025-02-24 13:23:00 [id number] [facility] [address] [place], [place], [address] PATIENT NAME: JIM PEREZ JR ADMIT DATE: ACCOUNT NO: [id number] ROOM NO: AGE: 59 REPORT TYPE: ELECTROCARDIOGRAM SEX: M ADMITTING PHYSICIAN: ATTENDING PHYSICIAN:Miguel Calvin MD Order: [id number] Test Reason : PRE OP Test Date/Time [...] MANDO MONSALVE MD at 1039 PATIENT NAME: JIM PEREZ JR [facility] 2024-12-01 01:08:09 Pt reported to ED registration pt wanted to leave. ERP notified. Augustin Boothe RN [facility] 2024-12-01 00:00:23 Pt feels like he is going through withdrawals, takes oxycodone for chronic pain but hasn't had any for 6 days. C/o tossing and turning, unable to relax, feeling jittery States he ran out faster than he should have because he has been taking extra Estelita Mark RN [facility] 2024-11-29 15:54:05 Patient is awake and alert, oriented x4, speech is clear and appropriate, ambulatory with a steady gait. Advised to seek medical attention for new/prolonged/worsening of symptoms. Respirations even and unlabored, no distress. Vielka Reyes RN [facility] 2024-11-29 14:27:44 Pt arrived ambulatory without assist. Pt c/o chronic "arthritis" pain that starts in knees and then travels up his back. Tanya Edwards RN [facility] 2024-11-05 08:06:00 [facility] EMERGENCY PROVIDER REPORT REPORT#:[id number] REPORT STATUS: Signed DATE:11/05/24 TIME: 805 PATIENT: JIM PEREZ JR UNIT #: [id number] ROOM/BED: : 65 AGE: 58 SEX: M PCP PHYS: Frdeis Hilliard MD SERVICE AUTHOR: Meche Campbell MATERIAL LIAISON REP SRV REP SRV TM: [id number] * [...] falls, and overdose. In the [place] in 202, among persons 12 years and older, 8.5 [...] Saw Pt Alone I have reviewed the PA/MATERIAL LIAISON's note and plan of care. I was available for consultation as needed at all times during the patient's visit in the emergency department. I agree with the clinical impression, plan and disposition. at 0701 at 0724 RPT #:[id number] END OF REPORT [facility] 2024-06-13 07:27:57 PT D/C home. GCS15, VS stable, no ataxia noted. Given one prescription (changed to [facility] per pt request) and D/C paperwork. Pt ambulatroy at time of discharge. Pt educated on diagnosis, med usage, follow up care, s/s worsening condition. Pt verbalized understanding. Mcgee RN [facility] 2024-06-13 06:06:23 Pt ambulatory to triage [...] fusion and laminectomy and arthritis Kennedy RN [facility] 2024-03-18 05:13:37 Awake, alert oriented X4, [...] noted upon discharge [facility] Leslie Hoover RN [facility] 2024-03-18 04:38:22 CC: Pt was prescribed oxycodone for lumbar fusion pain by . Pt states the PCP refilled his prescription, and he went to [facility] but pharmacist refused refill. HEB [...] ext without difficulty, amb without assistance T [facility]
--- NOTE | 2025-03-30 11:24 | ER ---
Nurse's Notes [facility] Name: Jim Maldonado Jr Age: 59 yrs Sex: Male : 1965 Arrival Date: 03/30/2025 Time: 10:28 Bed 17 Private MD: Diagnosis: Chronic knee pain;Chronic back pain Presentation: 03/30 10:32 Chief complaint: Patient states: Laron knees pain and swelling, lower back pain. dd2 Coronavirus screen: At this time, the client does not indicate any symptoms associated with coronavirus-19. Ebola Screen: No symptoms or risks identified at this time. Risk Assessment: Do you want to hurt yourself or someone else? Patient reports no desire to harm self or others. Onset of symptoms was March 29, 2025. 10:32 Method Of Arrival: Ambulatory dd2 10:32 Acuity: MARCEL 4 dd2 10:36 Initial Sepsis Screen: Does the patient meet any 2 criteria? No. Patient's initial dd2 sepsis screen is negative. Does the patient have a suspected source of infection? No. Patient's initial sepsis screen is negative. Triage Assessment: 10:36 General: Appears in no apparent distress. uncomfortable, well groomed, well nourished, dd2 Behavior is calm, cooperative, appropriate for age. Pain: Complains of pain in low back area, right knee and left knee Pain currently is 10 out of 10 on a pain scale. Musculoskeletal: Reports pain in low back area, right knee and left knee. Historical: - Allergies: 10:36 PENICILLINS; dd2 - PMHx: 10:36 Arthritis; chronic back pain; gastritis; Hypertensive disorder; Rashi Willebrand Disease; dd2 T12, L1, L2 BULGING DISC (Rashi Willebrand Disease); - PSHx: 10:36 laminectomy; Spinal Fusion; dd2 - Immunization history:: Adult Immunizations up to date. - Infectious Disease History:: Denies. - Social history:: Smoking status: Patient denies any tobacco usage or history of. Screenin:00 [facility] ED Fall Risk Assessment (Adult) History of falling in the last 3 months, ar8 including since admission No falls in past 3 months (0 pts) Confusion or Disorientation No (0 pts) Intoxicated or Sedated No (0 pts) Impaired Gait No (0 pts) Mobility Assist Device Used No (0 pt) Altered Elimination No (0 pt) Score/Fall Risk Level 0 - 2 = Low Risk Oriented to surroundings, Maintained a safe environment. Abuse screen: Denies threats or abuse. Nutritional screening: No deficits noted. Tuberculosis screening: No symptoms or risk factors identified. Assessment: 10:45 General: Appears uncomfortable, Behavior is calm, cooperative. Pain: Complains of pain ar8 in low back area. 10:45 Neuro: Level of Consciousness is awake, alert, obeys commands, Oriented to person, ar8 place, time, Appropriate for age. Cardiovascular: Patient's skin is warm and dry. Respiratory: Airway is patent Respiratory effort is even, unlabored, Respiratory pattern is regular, symmetrical. GI: No signs and/or symptoms were reported involving the gastrointestinal system. : No signs and/or symptoms were reported regarding the genitourinary system. EENT: No signs and/or symptoms were reported regarding the EENT system. 12:39 Reassessment: Patient appears in no apparent distress at this time. Patient and/or iw family updated on plan of care and expected duration. Pain level reassessed. Patient is alert, oriented x 3, equal unlabored respirations, skin warm/dry/pink. Vital Signs: 10:36 BP 140 / 94; Pulse 72; Resp 16; Temp 98.3; Pulse Ox 98% on R/A; Weight 81.65 kg; Pain dd2 10/10; 11:00 BP 160 / 96; Pulse 68; Resp 18; Pulse Ox 99% on R/A; ar8 11:45 BP 163 / 98; Pulse 76; Resp 18; Pulse Ox 97% on R/A; ar8 12:39 BP 180 / 72; Pulse 79; Resp 16; Pulse Ox 99% on R/A; iw 10:36 Pain Scale: Adult dd2 ED Course: 10:30 Patient arrived in ED. cj3 10:35 Darrell Davis DO is Attending Physician. ms3 10:36 Triage completed. dd2 10:36 Arm band placed on right wrist. dd2 10:45 Mundo Messer, ELIAS is Primary Nurse. ar8 10:45 Bed in low position. Call light in reach. Side rails up X 1. Provided Education on: ar8 Plan of care. 10:45 Pulse ox on. NIBP on. ar8 10:45 No provider procedures requiring assistance completed. ar8 12:40 Patient did not have IV access during this emergency room visit. iw Administered Medications: 11:45 Drug: Dexamethasone IM 10 mg IM once Route: IM; Site: right ventrogluteal; ar8 11:46 Drug: Ketorolac IM 15 mg IM once Route: IM; Site: left ventrogluteal; ar8 12:30 Drug: Diazepam PO 5 mg PO once Route: PO; iw Medication: 11:00 VIS not applicable for this client. ar8 Outcome: 11:24 Discharge ordered by . ms3 12:40 Discharged to home via wheelchair, iw 12:40 Condition: good 12:40 Discharge instructions given to patient, Instructed on discharge instructions, follow up and referral plans. Demonstrated understanding of instructions, follow-up care, 12:42 Patient left the ED. iw Signatures: Isaura Brown, RN RN iw Darrell Davis DO DO ms3 ALEX WINTER RN RN dd2 Dori Monteiro cj3 Mundo Messer, ELIAS RN ar8 Corrections: (The following items were deleted from the chart) 10:37 10:36 PMHx: T12; 03/16 (Unknown); dd2 dd2 10:37 10:36 PMHx: T12; 03/16 (Unknown); dd2 dd2 10:37 10:36 PMHx: T12; 03/16 (Unknown); dd2 dd2
[2025-03-30] MEDS ORDERED: KETOROLAC 30 MG/ML INJ ONE (11:25)
--- NOTE | 2025-03-30 11:25 | EDPHYS ---
Physician Documentation [facility] Name: Jim Maldonado Jr Age: 59 yrs Sex: Male : 1965 Arrival Date: 03/30/2025 Time: 10:28 Bed 17 Private MD: ED Physician Darrell Davis HPI: 03/30 20:27 This 59 yrs old Male presents to ER via Ambulatory with complaints of Knee ms3 Swelling- BOTH, Back Swelling. 20:27 59-year-old male with past medical history of arthritis, chronic back pain, gastritis, ms3 hypertension, von Willebrand's disease, chronic knee pain presents to the emergency department for knee and back pain. Patient states he is to see pain management on April 11 and a spine physician on April 06. Patient states he injured his back on April 05, 2023 and had an MRI performed on February 27, 2025 that showed sacral bone edema. Patient states he needs pain medications for his chronic pain. He rates his discomfort a 10/10. Patient states the pain is typical of chronic pain. Patient denies fevers, chills, nausea, vomiting, urinary or bowel incontinence. Patient requesting a morphine shot. Historical: - Allergies: 10:36 PENICILLINS; dd2 - PMHx: 10:36 Arthritis; chronic back pain; gastritis; Hypertensive disorder; Rashi Willebrand Disease; dd2 T12, L1, L2 BULGING DISC (Rashi Willebrand Disease); - PSHx: 10:36 laminectomy; Spinal Fusion; dd2 - Immunization history:: Adult Immunizations up to date. - Infectious Disease History:: Denies. - Social history:: Smoking status: Patient denies any tobacco usage or history of. ROS: 20:27 Constitutional: Negative for fever, and chills. Cardiovascular: Negative for chest ms3 pain, and palpitations. Respiratory: Negative for shortness of breath, cough, wheezing, and pleuritic chest pain, Abdomen/GI: Negative for abdominal pain, nausea, vomiting, diarrhea, and constipation, 20:27 Back: Positive for Chronic back pain, 20:27 MS/extremity: Positive for Chronic bilateral knee pain, Exam: 20:27 Constitutional: This is a well developed, well nourished patient who is awake, alert, ms3 and in no acute distress. Cardiovascular: Regular rate and rhythm with a normal S1 and S2. No gallops, murmurs, or rubs. Normal PMI, no JVD. No pulse deficits. Respiratory: Lungs have equal breath sounds bilaterally, clear to auscultation and percussion. No rales, rhonchi or wheezes noted. No increased work of breathing, no retractions or nasal flaring. Abdomen/GI: Soft, non-tender, with normal bowel sounds. No distension or tympany. No guarding or rebound. No evidence of tenderness throughout. Back: No spinal tenderness. No costovertebral tenderness. Full range of motion. Skin: Warm, dry with normal turgor. Normal color with no rashes, no lesions, and no evidence of cellulitis. MS/ Extremity: Pulses equal, no cyanosis. Neurovascular intact. Full, normal range of motion. Vital Signs: 10:36 BP 140 / 94; Pulse 72; Resp 16; Temp 98.3; Pulse Ox 98% on R/A; Weight 81.65 kg; Pain dd2 10/10; 11:00 BP 160 / 96; Pulse 68; Resp 18; Pulse Ox 99% on R/A; ar8 11:45 BP 163 / 98; Pulse 76; Resp 18; Pulse Ox 97% on R/A; ar8 12:39 BP 180 / 72; Pulse 79; Resp 16; Pulse Ox 99% on R/A; iw 10:36 Pain Scale: Adult dd2 MDM: 11:05 Medical Screening Exam initiated ms3 20:27 Differential diagnosis: Osteoarthritis versus degenerative disc disease versus ms3 musculoskeletal pain. Data reviewed: vital signs, nurses notes, and as a result, I will discharge patient. I considered the following discharge prescriptions or medication management in the emergency department Medications were administered in the Emergency Department. See MAR. Counseling: I had a detailed discussion with the patient and/or guardian regarding the historical points, exam findings, and any diagnostic results supporting the discharge/admit diagnosis, the need for outpatient follow up, to return to the emergency department if symptoms worsen or persist or if there are any questions or concerns that arise at home. Special discussion: I discussed with the patient/guardian in detail that at this point there is no indication for admission to the hospital. It is understood, however, that if the symptoms persist or worsen the patient needs to return immediately for re-evaluation. ED course: Discussed with patient alternatives to opioid treatments for his chronic pain. Patient given Toradol and Decadron IM. Patient given Valium p.o. Patient to follow-up as scheduled with his physicians. All questions were answered. Return precautions were discussed include worsening symptoms, or any other concerns.. Administered Medications: 11:45 Drug: Dexamethasone IM 10 mg IM once Route: IM; Site: right ventrogluteal; ar8 11:46 Drug: Ketorolac IM 15 mg IM once Route: IM; Site: left ventrogluteal; ar8 12:30 Drug: Diazepam PO 5 mg PO once Route: PO; iw Disposition Summary: 03/30/25 11:24 Discharge Ordered Notes: Location: Home ms3 Condition: Stable ms3 Diagnosis - Chronic knee pain ms3 - Chronic back pain ms3 Followup: ms3 - With: Private Physician - When: 2 - 3 days - Reason: Recheck today's complaints Discharge Instructions: - Discharge Summary Sheet ms3 - Chronic Back Pain, [id number] ms3 - Chronic Knee Pain, Adult, [id number] ms3 Forms: - Medication Reconciliation Form ms3 - Antibiotic Education ms3 - Prescription Opioid Use ms3 - Patient Portal Instructions ms3 - Leadership Thank You Letter ms3 Signatures: Isaura Brown RN RN iw Darrell Davis DO DO ms3 ALEX WINTER RN RN dd2 Mundo Messer RN RN ar8 Corrections: (The following items were deleted from the chart) 10:37 10:36 PMHx: T12; 03/16 (Unknown); dd2 dd2 10:37 10:36 PMHx: T12; 03/16 (Unknown); dd2 dd2 10:37 10:36 PMHx: T12; 03/16 (Unknown); dd2 dd2
[2025-03-30] MEDS ORDERED: DIAZEPAM 5 MG TABLET ONE ×2 (12:28→12:33)
[2025-03-30 12:49] VITALS: TEMP 98.3
[2025-03-30 12:54] VITALS: BP 180/72; O2SAT 99
== END 2025-03-30 12:42 | disposition home or self-care (01) ==
LOC: ER 10:28
DX: M25.562 Pain in left knee (principal); M25.561 Pain in right knee; M54.9 Dorsalgia, unspecified
CPT/HCPCS: 96372; 99284; J1885; J1100

== ENCOUNTER 2025-03-30 17:13 | Emergency (ER) | payer OTHER ==
--- OUTSIDE RECORDS SUMMARY | 2025-03-30 17:17 | XMS REPORT | Continuity of Care Document ---
Author Name Unknown Address [address] [facility]. [address] [place] [address] [facility] Address [address] [facility]. [address] [place] [address] Care Team Providers Care Director Housekeeping Name Role Phone Abdi Travis Primary Care Physician Fredis Hilliard Attending Clinician Unavailable Billy Reveles Attending Clinician [phone] EDWIN HOLLIDAY Attending Clinician Unavailable EDWIN HOLLIDAY Attending Clinician Unavailable [place] MD Attending Clinician [phone] Laz Bernal DO Attending Clinician [phone] BILLY RADER Attending Clinician Unavailable BILLY RADER Attending Clinician Unavailable Miguel Calvin Attending Clinician UnavailMIKHAIL Banerjee Attending Clinician Unavailable MIKHAIL PUGH Attending Clinician Unavailable Ross Adame Attending Clinician Unavailable Edwin Holliday MD Attending Clinician [phone] Hernán Attending Clinician Unavail able Fredis Hilliard Admitting Clinician Unavailable BILLY RADER Admitting Clinician Unavailable Hernán Admitting Clinician Unavail able Payers Payer Name Policy Type Policy Number Effective Date Expirati on Date Source [place] [id number] 2017 00:00:00 Allergies, Adverse Reactions, Alerts Allergy Name Allergy Type Status Severity Reaction(s) Onset Date Inactive Date Treating Clinician Comments Source Penicill in Propensi ty to adverse reaction s Active Rash 03-18 00:00: 00 [facility] PENICILL IN DRUG INGREDI Active Rash 03-18 00:00: 00 [facility] Penicill ins DA Active [place] 2013-06 00:00: 00 [facility] Penicill ins DA Active [place] RASH 2013-06 00:00: 00 [facility] Social History Social Habit Start Date Stop Date Quantity Comments Source Sexual orientation [facility] Sex assigned at 1965 00:00:00 1965 00:00:[address] [facility] Smoking Status Start Date Stop Date Source Tobacco smoking consumption unknown [facility] Medications Ordered Medication Name Filled Medication Name Start Date Stop Date Current Medication? Ordering Clinician Indication Dosage Frequency Signature (SIG) Comments Components Source ketorolac (TORADOL) 30 mg/mL (1 mL) injection 30 mg 2024-06 15:00: 00 03-27 14:11 :00 No 30mg 30 mg, Intramuscu lar, ONCE, 1 dose, On Thu03/27/25 at 1000, Routine [facility] dexAMETHaso ne PF (DECADRON) 10 mg/mL injection 10 mg 2024-06 0 14:15: 00 03-27 14:11 :00 No 10mg 10 mg, Intramuscu lar, ONCE, 1 dose, On Thu03/27/25 at 0915, 1 mL [facility] ketorolac (TORADOL) 30 mg/mL (1 mL) injection 30 mg 03-08 09:30: 00 03-08 08:35 :00 No 30mg 30 mg, Slow IV Push, ONCE, 1 dose, On Thu03/08/25 at 0430, Routine [facility] methocarbam oL (ROBAXIN) injection 1,000 mg 03-08 09:15: 00 03-08 08:38 :00 No 1000mg 1,000 mg, Slow IV Push, Administer over 3-5 Minutes, ONCE, 1 dose, On Thu03/08/25 at 0415, Routine [facility] dexAMETHaso ne PF (DECADRON) 10 mg/mL injection 10 mg 03-08 08:30: 00 03-08 08:36 :00 No 10mg 10 mg, Intramuscu lar, ONCE, 1 dose, On Thu03/08/25 at 0330, 1 mL [facility] FENTanyl (PF) (SUBLIMAZE) injection 75 mcg 03-06 21:15: 00 03-06 20:22 :00 No 75ug 75 mcg, Intramuscu lar, ONCE, 1 dose, On Thu03/06/25 at 1615, AURELIANO [facility] morphine (2 mg/mL) injection 6 mg 03-04 10:00: 00 03-04 10:00 :00 No 6mg 6 mg, Slow IV Push, ONCE, 1 dose, On 03/04/25 at 0500, STAT [facility] dexAMETHaso ne PF (DECADRON) 10 mg/mL injection 8 mg 03-02 23:15: 00 03-02 23:42 :00 No 8mg 8 mg, Slow IV Push, ONCE, 1 dose, On Renetta 03/02/25 at 1815, 1 mL [facility] ondansetron (ZOFRAN (PF)) injection 4 mg 03-02 23:15: 00 03-02 23:45 :00 No 4mg 4 mg, Slow IV Push, ONCE, 1 dose, On Renetta 03/02/25 at 1815, Administer over 2-5 Minutes, 2 mL [facility] morpHINE (4 mg/mL) injection 4 mg 03-02 23:15: 00 03-02 23:42 :00 No 4mg 4 mg, Slow IV Push, ONCE, 1 dose, On Thu03/02/25 at 1815, STAT [facility] methylPREDN ISolone (MEDROL, REAL,) 4 mg tablets 03-02 00:00: 00 Yes [id number] Take by mouth SEE-INSTRU CTIONS. follow package directions [facility] ketorolac (TORADOL) injection 30 mg 11-29 21:00: 00 11-29 20:13 :00 No 30mg 30 mg, Intramuscu lar, ONCE, 1 dose, On Thu11/29/24 at 1600, Routine [facility] dexamethaso ne sod phos PF injection 10 mg 11-29 20:15: 00 11-29 20:11 :00 No 10mg 10 mg, Intramuscu lar, ONCE, 1 dose, On Thu11/29/24 at 1515, 1 mL [facility] meloxicam 7.5 mg tablet 11-29 00:00: 00 Yes [id number] 7.5mg Take 1 tablet by mouth once daily as needed for Alternate with [place] for pain scale 4-6. [facility] HYDROcodone -acetaminop hen (NORCO) 10-325 mg [...] 1 dose, On Thu03/18/24 at 0545, AURELIANO, outreach team member approving Restricted medication : EDWIN HOLLIDAY [facility] Vital Signs Vital Name Observation Time Observation Value Comments Rhina gayle Systolic blood pressure 2025-03-27 21:25:00 188 mm[Hg] [facility] Diastolic blood pressure 2025-03-27 21:25:00 94 mm[Hg] [facility] Heart rate 2025-03-27 21:25:00 90 /min Unive [facility] Body temperature 2025-03-27 21:25:[address] [facility] Respiratory rate 2025-03-27 21:25:00 16 /min [facility] Body height 2025-03-27 21:25:00 170.2 cm Univ [facility] Body weight 2025-03-27 21:25:00 81.647 kg Univ [facility] BMI 2025-03-27 21:25:00 28.19 kg/m2 [facility] Oxygen saturation in Arterial blood by Pulse oximetry 2025-03-27 21:25:00 98 /min [facility] Systolic blood pressure 2025-03-27 13:14:00 178 mm[Hg] [facility] Diastolic blood pressure 2025-03-27 13:14:00 102 mm[Hg] [facility] Heart rate 2025-03-27 13:14:00 76 /min Unive [facility] Body temperature 2025-03-27 13:14:[address] [facility] Respiratory rate 2025-03-27 13:14:00 16 /min [facility] Body height 2025-03-27 13:14:00 170.2 cm [facility] 2025-03-27 13:14:00 81.647 kg [facility] BMI 2025-03-27 13:14:00 28.19 kg/m2 Univ [facility] Oxygen saturation in Arterial blood by Pulse oximetry 2025-03-27 13:14:00 96 /min [facility] Systolic blood pressure 2025-03-08 09:23:00 148 mm[Hg] [facility] Diastolic blood pressure 2025-03-08 09:23:00 88 mm[Hg] [facility] Heart rate 2025-03-08 09:23:00 80 /min Unive [facility] Body temperature 2025-03-08 09:23:[address] [facility] Respiratory rate 2025-03-08 09:23:00 18 /min [facility] Oxygen saturation in Arterial blood by Pulse oximetry 2025-03-08 09:23:00 99 /min [facility] Body height 2025-03-08 07:33:00 170.2 cm [facility] Body weight 2025-03-08 07:33:00 81.647 kg [facility] BMI 2025-03-08 07:33:00 28.19 kg/m2 [facility] Systolic blood pressure 2025-03-06 20:22:00 153 mm[Hg] [facility] Diastolic blood pressure 2025-03-06 20:22:00 94 mm[Hg] [facility] Heart rate 2025-03-06 20:22:00 95 /min Unive [facility] Body temperature 2025-03-06 20:22:[address] [facility] Respiratory rate 2025-03-06 20:22:00 18 /min [facility] Oxygen saturation in Arterial blood by Pulse oximetry 2025-03-06 20:22:00 100 /min [facility] Body height 2025-03-06 19:37:00 170.2 cm Univ [facility] Body weight 2025-03-06 19:37:00 81.647 kg [facility] BMI 2025-03-06 19:37:00 28.19 kg/m2 [facility] Systolic blood pressure 2025-03-04 10:00:00 142 mm[Hg] [facility] Diastolic blood pressure 2025-03-04 10:00:00 88 mm[Hg] [facility] Heart rate 2025-03-04 10:00:00 66 /min Unive [facility] Body temperature 2025-03-04 10:00:[address] [facility] Respiratory rate 2025-03-04 10:00:00 18 /min [facility] Oxygen saturation in Arterial blood by Pulse oximetry 2025-03-04 10:00:00 98 /min [facility] Body height 2025-03-04 08:36:00 170.2 cm Univ [facility] Body weight 2025-03-04 08:36:00 82.056 kg [facility] BMI 2025-03-04 08:36:00 28.33 kg/m2 Univ [facility] Systolic blood pressure 2025-03-03 02:05:00 157 mm[Hg] [facility] Diastolic blood pressure 2025-03-03 02:05:00 94 mm[Hg] [facility] Heart rate 2025-03-03 02:05:00 72 /min Unive [facility] Body temperature 2025-03-03 02:05:[address] [facility] Respiratory rate 2025-03-03 02:05:00 24 /min [facility] Oxygen saturation in Arterial blood by Pulse oximetry 2025-03-03 02:05:00 97 /min [facility] Body height 2025-03-02 22:43:00 170.2 cm [facility] Body weight 2025-03-02 22:43:00 84.369 kg [facility] BMI 2025-03-02 22:43:00 29.13 kg/m2 [facility] Systolic blood pressure 2024-12-01 05:04:00 160 mm[Hg] [facility] Diastolic blood pressure 2024-12-01 05:04:00 89 mm[Hg] [facility] Heart rate 2024-12-01 05:04:00 76 /min Un[facility] Body temperature 2024-12-01 05:04:[address] [facility] Respiratory rate 2024-12-01 05:04:00 18 /min [facility] Body height 2024-12-01 05:04:00 170.2 cm Univ [facility] Body weight 2024-12-01 05:04:00 84.369 kg Univ [facility] BMI 2024-12-01 05:04:00 29.13 kg/m2 Univ [facility] Oxygen saturation in Arterial blood by Pulse oximetry 2024-12-01 05:04:00 97 /min [facility] Systolic blood pressure 2024-11-29 20:18:10 147 mm[Hg] [facility] Diastolic blood pressure 2024-11-29 20:18:10 94 mm[Hg] [facility] Heart rate 2024-11-29 20:18:10 76 /min Unive [facility] Body temperature 2024-11-29 20:18:[address] [facility] Respiratory rate 2024-11-29 20:18:10 16 /min [facility] Oxygen saturation in Arterial blood by Pulse oximetry 2024-11-29 20:18:10 97 /min [facility] Body height 2024-11-29 19:27:00 170.2 cm Univ [facility] Body weight 2024-11-29 19:27:00 84.369 kg [facility] BMI 2024-11-29 19:27:00 29.13 kg/m2 Univ [facility] Systolic blood pressure 2024-06-13 12:11:00 180 mm[Hg] [facility] Diastolic blood pressure 2024-06-13 12:11:00 106 mm[Hg] [facility] Heart rate 2024-06-13 12:11:00 77 /min Unive [facility] Body temperature 2024-06-13 12:11:[address] [facility] Respiratory rate 2024-06-13 12:11:00 24 /min [facility] Body height 2024-06-13 12:11:00 170.2 cm Univ [facility] Body weight 2024-06-13 12:11:00 84.913 kg Univ [facility] BMI 2024-06-13 12:11:00 29.32 kg/m2 Univ [facility] Oxygen saturation in Arterial blood by Pulse oximetry 2024-06-13 12:11:00 99 /min [facility] Systolic blood pressure 2024-03-18 09:37:00 147 mm[Hg] [facility] Diastolic blood pressure 2024-03-18 09:37:00 100 mm[Hg] [facility] Heart rate 2024-03-18 09:37:00 76 /min [facility] Body temperature 2024-03-18 09:37:[address] [facility] Respiratory rate 2024-03-18 09:37:00 16 /min [facility] Body height 2024-03-18 09:37:00 170.2 cm [facility] Body weight 2024-03-18 09:37:00 88.451 kg [facility] BMI 2024-03-18 09:37:00 30.54 kg/m2 [facility] Oxygen saturation in Arterial blood by Pulse oximetry 2024-03-18 09:37:00 99 /min [facility] Procedures Procedure Date / Time Performed Performing Clinicia n Source XR CHEST 2 VW 2025-03-03 00:36:42 Billy Rader [facility] BASIC METABOLIC PANEL (NA, K, CL, CO2, GLUCOSE, BUN, CREATININE, CA) 2025-03-02 23:41:[address] [facility] CBC WITH DIFF 2025-03-02 23:41:00 Billy Rader [facility] N-TERMINAL PRO-BNP 2025-03-02 23:41:[address] [facility] TROPONIN I 2025-03-02 23:41:00 Billy Rader [facility] Encounters Start Date/Time End Date/Time Encounter Type Admission Type Attending Clinicians Care Facility Care Department Encounter ID Source 2023-04-30 10:00:00 Inpatient Fredis Asencio KEAGAN RAD [id number] 81 [facility] 2025-03-27 16:28:00 2025-03-27 18:16:00 Emergency X Billy Rader [facility] 1.2.840.114 350.1.13.10 4.2.7.2.686 [id number] [facility] 2025-03-27 08:25:00 2025-03-27 11:08:00 Emergency X JavontomBilly Aga [facility] 1.2.840.114 350.1.13.10 4.2.7.2.686 [id number] [facility] 2025-03-08 02:37:00 2025-03-08 04:24:00 Emergency X EDWIN HOLLIDAY WAKILI [facility] ERT [id number] [facility] 2025-03-06 14:39:00 2025-03-06 15:29:00 Emergency X Eriberto North [facility] 1.2.840.114 350.1.13.10 4.2.7.2.686 [id number] [facility] 2025-03-04 03:48:00 2025-03-04 05:23:00 Emergency X Laz Bernal [facility] 1.2.840.114 350.1.13.10 4.2.7.2.686 [id number] [facility] 2025-03-02 17:46:00 2025-03-02 21:11:00 Emergency X JAVONTOM TOÑOBILLY LI [facility] ERT [id number] [facility] 2025-02-27 06:14:00 2025-02-27 06:14:00 Outpatient Miguel Curry ANDI [id number] [facility] 2024-12-01 00:07:00 2024-12-01 01:10:00 Emergency X MIKHAIL PUGH PAMALA [facility] ERT [id number] [facility] 2024-11-29 14:30:00 2024-11-29 15:57:00 Emergency X Yowell, Ericca D [facility] 1.2.840.114 350.1.13.10 4.2.7.2.686 [id number] [facility] 2024-11-05 07:42:00 2024-11-05 09:37:00 Emergency Ross Gonzalez [facility] [id number] [facility] 2024-06-13 06:16:00 2024-06-13 07:28:00 Emergency North Wei [facility] 1.2.840.114 350.1.13.10 4.2.7.2.686 [id number] [facility] 2024-03-18 04:48:00 2024-03-18 05:29:00 Emergency X EDWIN HOLLIDAY WAKILI [facility] ERT [id number] [facility] 2024-03-18 04:48:00 2024-03-18 05:29:00 Emergency Maik Hollidayangy Lantigua [facility] 1.2.840.114 350.1.13.10 4.2.7.2.686 [id number] [facility] 2022-07-07 09:32:00 2022-07-07 09:32:00 Outpatient ISSAC BabakFredis KEAGAN RAD [id number] 58 [facility] Results Test Description Test Time [...] and soft tissues: No acute abnormality detected. [facility] [id number] 00:20:49* Test Item Value Reference Range Interpretation Comme [facility] TROPONIN I (test code = 1481637647) 0.004 ng/mL <=0.034 DEVAN (test code = [...] of biotin. Lab Interpretation (test code = 75530-3) Normal [facility] [id number] 00:18:07* Test Item Value Reference Range Interpretation Comme [facility] NT-proBNP (test code = 86676-9) 943 pg/mL <=125 H DEVAN (test code = DEVAN) Positive: Heart Failure Likely Lab Interpretation (test code = 83433-2) Abnormal [facility] MET[facility]OLIC PANEL (NA, K, CL, CO2, GLUCOSE, BUN, CREATININE, CA)2025-03-03 00:08:45* Test Item Value Reference Range Interpretation Comme [facility] NA (test code = 4921134755) 138 mmol/L 135-145 K (test code = 2995185324) 3.7 mmol/L 3.5-5.0 CL (test code = 9964160463) 110 mmol/L 98-108 H CO2 TOTAL (test code = 1762807282) 22 mmol/L 23-31 L AGAP (test code = 5263842032) 6 2-16 BUN (test code = 0842871379) 28 mg/dL 7-23 H GLUCOSE (test code = 9764165539) 102 mg/dL 70-110 CREATININE (test code = 2160-0) 0.95 mg/dL 0.60-1.25 CALCIUM (test code = 6064977574) 8.9 mg/dL 8.6-10.6 eGFR (test code = 30576-7) 92.2 mL/min/1.73m2 CKD-EPI eGFR (2021). Assuming creatinine has been stable day-to-day for at least three months, the eGFR indicates Category G1 (>= 90 mL/min/1.73 m2) Lab Interpretation (test code = 53164-0) Abnormal [facility] METABOLIC [id number] 14:55:00* Test Item Value Reference Range Interpretation [...] = CA) 9.6 mg/dL 7.6-10.9 N PROTHROMBIN [id number] 14:52:00* Test Item Value Reference Range Interpretation [...] patients with mechanicalprosthetic heart valves. THROMBOPLASTIN TIME [id number] 14:52:00* Test Item Value Reference Range Interpretation Comme nts THROMBOPLASTIN TIME PARTIAL (test code = PTT) 27.6 SECONDS 25.9-37.7 N CBC W/AUTO [id number] 14:18:00* Test Item Value Reference Range Interpretation [...] 0.00 K/mm3 0.00-0.20 N - US RETROPERITONEAL [id number] 11:20:00 [facility] 1965 Sex: M [place]: [facility] St: REG -- Name: JIM PEREZ [facility] : 1965 Age/S: 56/M [address] [facility] Unit #: [id number] Loc: [place], [place] [address] Phys: Fredis Hilliard MD Acct: [id number] DisDate: Status: REG CLI PHONE #: [phone] Exam Date: 07/07/2022 1014 FAX #: [phone] Reason: ESSENTIAL PRIMARY HTN EXAMS: CPT CODE: [id number] US RETROPERITONEAL COMPLETE 60830 Retroperitoneal ultrasound with duplex imaging. Location: H19 [...] CHEW MD PAGE 1 Signed Report (CONTINUED) [place]: [facility] St: REG Name: ERICAJIM [facility] : 1965 Age/S: 56/M [address] [facility] Unit #: [id number] Loc: [place], [place] [address] Phys: Fredis Hilliard MD Acct: [id number] Dis Date: Status: REG CLI PHONE #: [phone] Exam Date: FAX #: [phone] Reason: ESSENTIAL PRIMARY HTN EXAMS: CPT CODE: [id number] US RETROPERITONEAL COMPLETE 79801 (Continued) Facility ACR Accreditation for Ultrasound - July 2011 CC: Fredis Hilliard MD Technologist: GAGANDEEP PASCUAL, RVS Transcribed Date/Time/By: 07/07/2022 (1120) : By: [email or web address] Orig Print D/T: S: 07/07/2022 (9111) PAGE 2 Signed Report- DUP AO/IVC/IV/BPG LTD 2022-07-07 11:20:00 [facility] 1965 Sex: M [place]: [facility] St: REG -- Name: JIM PEREZ [facility] : 1965 Age/S: 56/M [address] [facility] Unit #: [id number] Loc: [place] [address] Phys: Fredis Hilliard MD Acct: [id number] Dis Date: Status: REG CLI PHONE #: [phone] Exam Date: 07/07/2022 1014 FAX #: [phone] Reason: ESSENTIAL PRIMARY HTN EXAMS: CPT CODE: [id number] DUP AO/IVC/IV/BPG LTD 35770 Retroperitoneal ultrasound with duplex imaging. Location: H19 [...] MD PAGE 1 S igned Report (CONTINUED) [place]: [facility] St: REG Name: JIM PEREZ [facility] : 1965 Age/S:56/M [address] Unit #: [id number] Loc: [place], [place] [address] Phys: Fredis Hilliard MD Acct: [id number] Dis Date: Status: REG CLI PHONE #: [phone] Exam Date: 07/07/2022 1014 FAX #: [phone] Reason: ESSENTIAL PRIMARY HTN EXAMS: CPT CODE: [id number] DUP AO/IVC/IV/BPG LTD 78190 (Continued) Facility ACR Accreditation for Ultrasound - July 2011 CC: Fredis Hilliard MDTechnologist: CHARI LEE Transcribed Date/Time/By: 07/07/2022 (1120) : By: [email or web address] Orig Print D/T: S: 07/07/2022 (9147) PAGE 2 Signed Report- VEIN REFLUX [id number] 11:48:00 [place]: [facility] St: PRE Name: JIM PEREZ [facility] : 1965 Age/S: 53/M [address] [facility] Unit #: [id number] Loc: [place], [place] [address] Phys: David James MD Acct: [id number] Dis Date: Status: PRE CLI PHONE #: [phone] Exam Date: 05/04/2019 1110 FAX #: [phone] Reason: VENOUS INSUFFICIENSCY EXAMS: CPT CODE: [id number] VEIN REFLUX STUDY 94324 BILATERAL LOWER EXTREMITIES VENOUS DUPLEX INCLUDING ADDITIONAL [...] no significant refluxPAGE 1 Signed Report (CONTINUED) [place]: [facility] St: PRE Name: JIM PEREZ [facility] : 1965 Age/S: 53/M [address] [facility] Unit #: [id number] Loc: [place], [place] [address] Phys: David James MD Acct: [id number] Dis Date: Status: PRE CLI PHONE #: [phone] Exam Date: 05/04/2019 1110 FAX #: [phone] Reason: VENOUS INSUFFICIENSCY EXAMS: CPT CODE: [id number] VEIN REFLUX STUDY 79713 (Continued) - Distal thigh: 3.1 mm, no [...] RT(R)RDMS,RVT; ADALBERTO MURPHY RDMS Transcribed Date/Time/By: 05/09/2019 (1145) : By:[email or web address] Orig Print D/T: S: 05/09/2019 (4781) PAGE 2 Signed Report- MRI L-SPINE W/O [id number] 10:18:00FAX: Gurjit Quinn [phone] [place]ps: MARY St: REG FAX: Jordan Ocampo MD [phone] - Name: ERICAJIM [facility] : 1965 Age/S: 53/M [address] [facility] Unit #: [id number] Loc: [place] [address] Phys: Jordan Novoa MD Acct: [id number] Dis Date: Status: REG [facility] PHONE #: [phone] Exam Date: 12/28/2018 0934 FAX #: [phone] Reason: LUMBAR STENOSISEXAMS: CPT CODE: [id number] MRI L-SPINE W/O CONT 89276 EXAM: MRI LUMBAR SPINE WITHOUT CONTRAST INDICATION: [...] 1 Signed Report (CONTINUED) FAX: Gurjit Quinn [phone] [place]: MARY St: REG FAX: Jordan Ocampo MD [phone] Name: JIM PEREZ [facility] : 1965 Age/S: 53/M [address] [facility] Unit #: [id number] Loc: [place], [place] [address] Phys: Jordan Novoa MD Acct: [id number] Dis Date: Status: REG [facility] PHONE #: [phone] Exam Date: 12/28/2018 0934 FAX #: [phone] Reason: LUMBAR S TENOSIS EXAMS: CPT CODE: [id number] MRI L-SPINE W/O CONT 59704 (Continued) Discogenic disease and facet joint arthropathy throughout the lumbar spine. Minimal retrolisthesis of L3 over L4 with mild spinal canal stenosis. Moderate right neuroforaminal stenosis at L3-L4. Postsurgical changes at L4-S1. LOCATION: A 1 at 1018 Reported and signed by: SHEREE HALE M.D. CC: Gurjit Cline MD; Jordan Novoa MD Technologist: Fredis Talley RT(R)(CT)(MRI)ARRT Transcribed Date/Time/By: 12/28/2018 (7108) :16 Orig Print D/T: S: 12/28/2018 (9671) PAGE 2 Signed ReportBASIC METABOLIC [id number] 11:07:00 * Test Item Value Reference Range [...] CA) 9.2 mg/dL 7.8-10.9 N CBC W/O [id number] 10:50:00* Test Item Value Reference Range Interpretation [...] Provider Source 2025-03-27 17:38:00 Pt called from [facility]; no answer at this time. Tanya Edwards RN [facility] 2025-03-27 16:53:36 Called pt. From serena; no answer; registration reports pt. Left the building; will attempt again Hillary Andrews RN [facility] 2025-03-27 16:23:10 Patient arrived ambulatory to ED c/o back pain. Patient was seen here earlier today and states the pain won't subside. Requesting Fentanyl patch. Shanel Srivastava RN [facility] 2025-03-27 10:00:00 Pt not seen in [facility] to discharge. Edda Mcgee RN [facility] 2025-03-27 08:21:36 Patient came in with [...] PSHx: Laminectomy, Lumbar Fusion Sherine Kennedy RN [facility] 2025-03-08 02:32:59 C/o chronic back pain and chronic bilateral knee pain. Takes oxycodone, gabapentin, methylprednisolone, flexeril Estelita Mark RN [facility] 2025-03-06 14:35:00 Jim Perez is a 59 year old male arrived to ED via personal means with CC of lower back and genaro knee pain since 11am. Hx of arthritis, taking oxycodone but not helping today. Seen by ortho today but unable to do injections till insurance approval. Has a PCP follow up on Thursday scheduled. Debi Martini RN [facility] 2025-03-04 05:23:02 Pt given printed and [...] in no apparent distress, Callie Carver RN [facility] 2025-03-04 04:37:26 SAFE-T Protocol with C-SSRS ([place] Risk and Protective Factors) - Recent Step [...] pain or other acute medical problem (e.g. GATE AGENT disorders) Access to lethal methods: (P) No [...] there things, anyone or anything (e.g. family, bahai, pain of ), that stopped you from [...] provider in 1 week or less. T [facility] EMERGENCY PHYSICIAN STAFF [facility] 2025-03-04 03:29:24 Arrives to ED ambulatory. [...] plan to hurt himself. Keiry Landon RN [facility] 2025-03-02 21:10:02 Pt given printed and [...] ambulatory without assist, in no apparent distress, Tnaya Edwards RN [facility] 2025-03-02 17:44:44 Patient reports chronic back pain and right knee pain that is intolerable, as well as shortness of breath. Patient states that he has asbestos exposure. Denies chest pain, fevers. Presents vitally stable. HX: Von Willebrand's, asbestos exposure. Myesha Truong RN [facility] 2025-02-24 13:23:00 [id number] [facility] [address] [place], [place], [address] PATIENT NAME: JIM PEREZ JR ADMIT DATE: ACCOUNT NO: [id number] ROOM NO: AGE: 59 REPORT TYPE: ELECTROCARDIOGRAM SEX: M ADMITTING PHYSICIAN: ATTENDING PHYSICIAN:Miguel Calvin MD Order: [id number] Test Reason : PRE OP Test Date/Time [...] at 1039 PATIENT NAME: JIM PEREZ JR [facility] 2024-12-01 01:08:09 Pt reported to ED registration pt wanted to leave. ERP notified. Augustin Boothe RN [facility] 2024-12-01 00:00:23 Pt feels like he is going through withdrawals, takes oxycodone for chronic pain but hasn't had any for 6 days. C/o tossing and turning, unable to relax, feeling jittery States he ran out faster than he should have because he has been taking extra Estelita Mark RN [facility] 2024-11-29 15:54:05 Patient is awake and alert, oriented x4, speech is clear and appropriate, ambulatory with a steady gait. Advised to seek medical attention for new/prolonged/worsening of symptoms. Respirations even and unlabored, no distress. Vielka Reyes RN [facility] 2024-11-29 14:27:44 Pt arrived ambulatory without assist. Pt c/o chronic "arthritis" pain that starts in knees and then travels up his back. Tanya Edwards RN [facility] 2024-11-05 08:06:00 [facility] EMERGENCY PROVIDER REPORT REPORT#:[id number] REPORT STATUS: Signed DATE:11/05/24 TIME: 805 PATIENT: JIM PEREZ JR UNIT #: [id number] ROOM/BED: : 65 AGE: 58 SEX: M PCP PHYS: Fredis Hilliard MD SERVICE AUTHOR: Meche Campbell EXPLOSIVE MAN REP SRV REP SRV TM: [id number] * [...] Saw Pt Alone I have reviewed the PA/EXPLOSIVE MAN's note and plan of care. I was available for consultation as needed at all times during the patient's visit in the emergency department. I agree with the clinical impression, plan and disposition. at 0701 at 0724 RPT #:[id number] END OF REPORT [facility] 2024-06-13 07:27:57 PT D/C home. GCS15, VS stable, no ataxia noted. Given one prescription (changed to [facility] per pt request) and D/C paperwork. Pt ambulatroy at time of discharge. Pt educated on diagnosis, med usage, follow up care, s/s worsening condition. Pt verbalized understanding. Mcgee RN [facility] 2024-06-13 06:06:23 Pt ambulatory to triage [...] fusion and laminectomy and arthritis Kennedy RN [facility] 2024-03-18 05:13:37 Awake, alert oriented X4, [...] noted upon discharge [facility] Leslie Hoover RN [facility] 2024-03-18 04:38:22 CC: Pt was prescribed oxycodone for lumbar fusion pain by . Pt states the PCP refilled his prescription, and he went to [facility] but pharmacist refused refill. HEB [...] ext without difficulty, amb without assistance T [facility]
[2025-03-30] MEDS ORDERED: ACETAMINOPHEN 500 MG TAB ONE (17:42)
[2025-03-30] MEDS ORDERED: GABAPENTIN 300 MG CAP ONE (17:42)
[2025-03-30] MEDS ORDERED: BACLOFEN 10 MG TAB ONE (17:54)
--- NOTE | 2025-03-30 18:06 | ER ---
Nurse's Notes [facility] Name: Jim Maldonado Jr Age: 59 yrs Sex: Male : 1965 Arrival Date: 03/30/2025 Time: 17:13 Bed 10 Private MD: Diagnosis: Chronic pain syndrome;Pain in knee-bilateral;Low back pain Presentation: 03/30 17:23 Chief complaint: Patient states: KNEES STILL HURT AND LOW BACK STILL PAINFUL. REPORTS dd2 MEDICATIONS GIVEN EARLIER TODAY IN THIS ER IS NOT WORKING. Coronavirus screen: At this time, the client does not indicate any symptoms associated with coronavirus-19. Ebola Screen: No symptoms or risks identified at this time. Risk Assessment: Do you want to hurt yourself or someone else? Patient reports no desire to harm self or others. Onset of symptoms was March 29, 2025. 17:23 Method Of Arrival: Ambulatory dd2 17:23 Acuity: MARCEL 4 dd2 17:24 Initial Sepsis Screen: Does the patient meet any 2 criteria? No. Patient's initial dd2 sepsis screen is negative. Does the patient have a suspected source of infection? No. Patient's initial sepsis screen is negative. Triage Assessment: 17:24 General: Appears in no apparent distress. uncomfortable, Behavior is calm, cooperative, dd2 appropriate for age. Pain: Complains of pain in low back area, right knee and left knee. Musculoskeletal: Circulation, motion, and sensation intact. Range of motion: intact in all extremities, Reports pain in low back area, right knee and left knee. Historical: - Allergies: 17:24 PENICILLINS; dd2 - PMHx: 17:24 Arthritis; chronic back pain; gastritis; Hypertensive disorder; T12 (Rashi Willebrand dd2 Dise); Rashi Willebrand Disease; - PSHx: 17:24 laminectomy; Spinal Fusion; dd2 - Immunization history:: Adult Immunizations up to date. - Infectious Disease History:: Denies. - Social history:: Smoking status: Patient denies any tobacco usage or history of. Screenin:21 [facility] ED Fall Risk Assessment (Adult) History of falling in the last 3 months, jb4 including since admission No falls in past 3 months (0 pts) Confusion or Disorientation No (0 pts) Intoxicated or Sedated No (0 pts) Impaired Gait No (0 pts) Mobility Assist Device Used No (0 pt) Altered Elimination No (0 pt) Score/Fall Risk Level 0 - 2 = Low Risk Oriented to surroundings, Maintained a safe environment. Abuse screen: Denies threats or abuse. Nutritional screening: No deficits noted. Tuberculosis screening: No symptoms or risk factors identified. Assessment: 17:45 General: Appears in no apparent distress. uncomfortable, Behavior is calm, cooperative, jb4 appropriate for age. Pain: Complains of pain in right knee and left knee and low back area Pain does not radiate. Pain currently is 10 out of 10 on a pain scale. Neuro: Level of Consciousness is awake, alert, obeys commands, Oriented to person, place, time, situation. Cardiovascular: Patient's skin is warm and dry. Respiratory: Airway is patent Respiratory effort is even, unlabored, Respiratory pattern is regular, symmetrical. Derm: Skin is intact, Skin is pink, warm \T\ dry. Musculoskeletal: Circulation, motion, and sensation intact. Range of motion: intact in all extremities. 18:21 Reassessment: Patient appears in no apparent distress at this time. Patient and/or jb4 family updated on plan of care and expected duration. Pain level reassessed. Patient is alert, oriented x 3, equal unlabored respirations, skin warm/dry/pink. Vital Signs: 17:24 BP 162 / 109; Pulse 94; Resp 16; Temp 98.3; Pulse Ox 99% on R/A; Pain 10/10; dd2 17:24 Pain Scale: Adult dd2 ED Course: 17:15 Patient arrived in ED. cj3 17:18 [facility] Cortes [facility]. cp 17:18 Darrell Davis DO is Attending Physician. cp 17:24 Triage completed. dd2 17:24 Arm band placed on right wrist. dd2 18:21 Patient has correct armband on for positive identification. Bed in low position. Call jb4 light in reach. Side rails up X 1. Provided Education on: discharge instructions. 18:21 No provider procedures requiring assistance completed. Patient did not have IV access jb4 during this emergency room visit. Administered Medications: 17:48 Drug: Neurontin PO 600 mg PO once Route: PO; jb4 18:23 Follow up: Response: No adverse reaction jb4 17:48 Drug: Acetaminophen PO 1000 mg PO once Route: PO; jb4 18:23 Follow up: Response: No adverse reaction jb4 18:00 Drug: Baclofen PO 10 mg PO once Route: PO; jb4 18:22 Follow up: Response: No adverse reaction jb4 Medication: 18:21 VIS not applicable for this client. jb4 Outcome: 18:06 Discharge ordered by . ubaldo 18:21 Discharged to home via wheelchair, with family, jb4 18:21 Condition: stable 18:21 Discharge instructions given to patient, Instructed on discharge instructions, follow up and referral plans. Demonstrated understanding of instructions, follow-up care, 18:23 Patient left the ED. jb4 Signatures: Zachariah Cortes, Param Moreno PA-C, cp, RN RN jb4 ALEX WINTER RN RN dd2 Dori Monteiro cj3 Corrections: (The following items were deleted from the chart) 18:23 18:22 Response: No adverse reaction; Marked relief of symptoms; Pain is decreased jb4 jb4
--- NOTE | 2025-03-30 18:06 | EDPHYS ---
Physician Documentation [facility] Name: Jim Maldonado Jr Age: 59 yrs Sex: Male : 1965 Arrival Date: 03/30/2025 Time: 17:13 Bed 10 Private MD: ED Physician Darrell Davis HPI: 03/30 17:30 This 59 yrs old Male presents to ER via Ambulatory with complaints of Back cp Pain - STABBING PAINS, Knee Pain. 17:30 The patient presents with pain that is chronic, with no known mechanism of injury. The cp symptoms are located in the mid and low back. Onset: The symptoms/episode began/occurred for years. Associated signs and symptoms: Pertinent positives: bilateral chronic knee pain, Pertinent negatives: abdominal pain, chest pain, fever, incontinence, numbness. Severity of symptoms: in the emergency department the symptoms are unchanged, despite home interventions. 17:30 Patient returns to ED after being seen earlier today for similar complaints. cp Historical: - Allergies: 17:24 PENICILLINS; dd2 - PMHx: 17:24 Arthritis; chronic back pain; gastritis; Hypertensive disorder; T12 (Rashi Willebrand dd2 Dise); Rashi Willebrand Disease; - PSHx: 17:24 laminectomy; Spinal Fusion; dd2 - Immunization history:: Adult Immunizations up to date. - Infectious Disease History:: Denies. - Social history:: Smoking status: Patient denies any tobacco usage or history of. ROS: 17:33 Back: Positive for pain at rest, pain with movement, Negative for injury or acute cp deformity, 17:33 MS/extremity: Positive for pain, of the right knee and left knee, cp Exam: 17:36 Constitutional: The patient appears in no acute distress, alert, awake, cp non-diaphoretic, non-toxic, well developed, well nourished, 17:36 Head/Face: Normocephalic, atraumatic. cp 17:36 Eyes: Periorbital structures: appear normal, Conjunctiva: normal, no exudate, no injection, Sclera: no appreciated abnormality, Lids and lashes: appear normal, bilaterally, 17:36 ENT: External ear(s): are unremarkable, Nose: is normal, Mouth: Lips: moist, Oral mucosa: moist, Posterior pharynx: Airway: no evidence of obstruction, patent, 17:36 Neck: ROM/movement: limited range of motion, is not appreciated, Meningeal signs: are not present, 17:36 Chest/axilla: Inspection: normal, 17:36 Cardiovascular: Rate: normal, 17:36 Respiratory: the patient does not display signs of respiratory distress, Respirations: normal, no use of accessory muscles, no retractions, labored breathing, is not present, Breath sounds: are clear throughout, no decreased breath sounds, no stridor, no wheezing, 17:36 Abdomen/GI: Inspection: abdomen appears normal, Palpation: abdomen is soft and non-tender, in all quadrants, 17:36 Back: pain, that is moderate, 17:36 Neuro: Orientation: to person, place \T\ time. Mentation: is normal, Motor: moves all fours, strength is normal, Sensation: no obvious gross deficits, Gait: is steady, Vital Signs: 17:24 BP 162 / 109; Pulse 94; Resp 16; Temp 98.3; Pulse Ox 99% on R/A; Pain 10/10; dd2 17:24 Pain Scale: Adult dd2 MDM: 17:19 Medical Screening Exam initiated cp 18:05 Data reviewed: vital signs, nurses notes. cp 18:05 Differential diagnosis: drug seeking behavior, illegal drug use, chronic pain, cp exacerbation chronic pain. I considered the following discharge prescriptions or medication management in the emergency department Medications were administered in the Emergency Department. See MAR. Response to treatment: the patient's symptoms have mildly improved after treatment, and as a result, I will discharge patient. Special discussion: I discussed with the patient their frequent requests for pain medications. Instructions have been given, that in the best interests of the patient, further pain Rx's must come from the patient's PCP or a paintless dent repair technician. Administered Medications: 17:48 Drug: Neurontin PO 600 mg PO once Route: PO; jb4 18:23 Follow up: Response: No adverse reaction jb4 17:48 Drug: Acetaminophen PO 1000 mg PO once Route: PO; jb4 18:23 Follow up: Response: No adverse reaction jb4 18:00 Drug: Baclofen PO 10 mg PO once Route: PO; jb4 18:22 Follow up: Response: No adverse reaction jb4 Disposition: 03/31 17:01 Chart complete. cp Disposition Summary: 03/30/25 18:06 Discharge Ordered Notes: Location: Home cp Condition: Stable cp Problem: chronic cp Symptoms: have improved cp Diagnosis - Chronic pain syndrome cp - Pain in knee - bilateral cp - Low back pain cp Followup: cp - With: Private Physician - When: 2 - 3 days - Reason: Recheck today's complaints Discharge Instructions: - Discharge Summary Sheet cp - Chronic Back Pain cp - Back Exercises cp - Chronic Knee Pain, Adult cp Forms: - Medication Reconciliation Form cp - Antibiotic Education cp - Prescription Opioid Use cp - Patient Portal Instructions cp - Leadership Thank You Letter cp Addendum: 21:12 I was immediately available on-site in the Emergency Department for consultation in the m s3 care of the patient. Signatures: Zachariah Cortes, RACHELLE PAParam Rausch cp RN RN jb4 Darrell Davis DO DO ms3 ALEX WINTER RN RN dd2
[2025-03-30 19:00] VITALS: BP 162/109; TEMP 98.3; O2SAT 99
== END 2025-03-30 18:23 | disposition home or self-care (01) ==
LOC: ER 17:13
DX: G89.4 Chronic pain syndrome (principal); M25.562 Pain in left knee; M25.561 Pain in right knee
CPT/HCPCS: 99283